=== PATIENT | female | born 2000 | race Caucasian/White ===

== ENCOUNTER 2022-12-27 11:16 | Emergency (ER) | payer OTHER, BC, SELFPAY ==
--- NOTE | ~2022-12-27 | US_ITS ---
EXAMINATION: US OB <=14 wk fetus w TV DATE: 12/27/2022 13:56 INDICATION: Low abdominal pain. TECHNIQUE: Real-time transabdominal and transvaginal pelvic ultrasound was performed. COMPARISON: None. FINDINGS: TRANSABDOMINAL ULTRASOUND: The uterus measures 6.8 x 6.0 x 5.3 cm. TRANSVAGINAL ULTRASOUND: There is an intrauterine gestational sac. A yolk sac is identified. The fet al crown rump length measures 0.7 cm, which correlates with an estimated gestational age of 6 weeks a nd 4 day(s) (+/-) 4 day(s). heart motion is identified measuring 163 beats per minute (bpm) by M-mode Doppler. The right ovary measures 6.9 x 7.5 x 6.9 cm. The left ovary measures 2.6 x 3.5 x 2.7 cm. There is a 6.9 cm homogeneous hypoechoic mass in right ovary without internal vascular flow. Ther e is vascular flow in the ovaries. There is no free fluid in the pelvis. IMPRESSION: 1. 6.9 cm mass in right ovary, most likely an endometrioma. Pelvis ultrasound is recommended in 6-12 weeks. 2. Single living intrauterine gestation with estimated date of delivery of 08/18/2023. Reviewed, dictated and finalized at location A. IMPRESSION: 1. 6.9 cm mass in right ovary, most likely an endometrioma. Pelvis ultrasound is recommended in 6-12 weeks. 2. Single living intrauterine gestation with estimated date of delivery of 08/01.
[2022-12-27 11:20] VITALS: BP 147/101; PULSE 75; RESP 16; TEMP 36.9; O2SAT 100
--- NOTE | 2022-12-27 12:03 | ECG_ITS ---
Measurements Intervals [place] Rate: 74 P: 60 RI: 134 QRS: 64 QRSD: 78 T: 24 QT: 360 QTc: 400 Interpretive Statements SINUS RHYTHM MINIMAL Q WAVES- ANTEROLAT/INF LEADS NONSPECIFIC T-WAVE ABNORMALITY- ANTERIOR LEADS BASELINE ARTIFACT- I, II, AVR, AVL BORDERLINE ECG NO PREVIOUS ECG AVAILABLE FOR COMPARISON Electronically Signed On 12-27-2022 12:31:51 CDT by Alvino Puente D.O.
[2022-12-27 12:29] LABS: Basophils Percent Auto 0.3 % (0.2-1.2); Eosinophils Percent Auto 0.1 % (0-4.4); Hemoglobin 14.5 g/dL (12.0-15.0); Immature Granulocyte Absolute 0.06 K/mm3 (0.00-0.031); Immature Granulocyte Percent A 0.5 % (0-0.5); Lymphocytes Absolute Auto 0.89 K/mm3 (0.9-3.2); Lymphocytes Percent Auto 7.3 % (18.3-44.2); Mean Corpuscular HGB Conc 35.4 g/dl (32-36); Mean Corpuscular Hemoglobin 31.2 pg (26-34); Mean Corpuscular Volume 88.2 fl (80-100); Mean Platelet Volume 9.6 fl (7.4-10.4); Monocytes Absolute Auto 0.5 K/mm3 (0.1-0.6); Monocytes Percent Auto 4.4 % (2.6-8.5); Neutrophils Absolute Auto 10.7 K/mm3 (1.3-6.7); Neutrophils Percent Auto 87.4 % (45.5-73.1); Platelet Count Result 232 k/mm3 (150-375); Red Blood Count 4.65 M/mm3 (4.2-5.4); Red Cell Distribution Width 11.9 % (11.5-14.5); White Blood Count 12.2 K/mm3 (4.5-10.0)
[2022-12-27 12:33] LABS: Appearance Urine Cloudy (Clear); Bacteria Urine 1+ /hpf; Bilirubin Urine Negative (Negative); Blood Urine Negative (Negative); Color Urine Yellow (Yellow); Glucose Urine UA Negative (Negative); Ketones Urine 4+ mg/dL (Negative); Leukocyte Esterase Ur 1+ LEU/UL (Negative); Nitrate Urine Negative (Negative); Non Pathogenic Casts 0-2; Protein Urine Trace mg/dL (Negative); Specific Grav Ur 1.024 (1.001-1.035); Squamous Epithelial Cell Urine Moderate /hpf (Few); Urobilinogen Urine 0.2 mg/dL (<2.0)
[2022-12-27 12:37] LABS: Alanine Aminotransferase 68 U/L (6-35); Albumin Level 4.8 g/dL (3.5-5.1); Alkaline Phosphatase 84 U/L (38-126); Anion Gap 9 mmol/L (8-16); Aspartate Amino Transferase 61 U/L (14-36); Bilirubin,Total 0.7 mg/dL (0.2-1.3); Blood Urea Nitrogen 7 mg/dL (7-17); Carbon Dioxide 23 mmol/L (22-30); Chloride 103 mmol/L (98-107); Estimated CRCL calculation 127 ml/min; Estimated Glomerular Filt Rate > 60; Glucose 88 mg/dL (65-110); Potassium 3.7 mmol/L (3.4-5.0); Sodium 135 mmol/L (137-145)
[2022-12-27 12:58] LABS: Add Urine Microscopic? YES
--- NOTE | 2022-12-27 13:11 | ED.GENADULT ---
HPI - General Adult General Chief complaint: Abdominal Pain Stated complaint: early preg/abd pain Time Seen by Provider: 12/27/22 12:12 History of Present Illness HPI narrative: 22-year-old female that is G1, P0 presented to the emergency department for evaluation of epigastric and lower abdominal pain. Patient reports the symptoms started today while she was at rest. Patient states she was also having some associated chest pain as well. Patient is currently being treated with antibiotics for bacterial vaginosis and today is last day of antibiotics. Patient denies any pain with urination denies any vaginal bleeding. Patient has not yet had an ultrasound with this . Patient is scheduled to follow-up with OB next week. Related Data Allergies Allergy/AdvReac Type Severity Reaction Status Date / Time No Known Allergies Allergy Unverified 09/26/18 19:47 Review of Systems Review of Systems: All systems reviewed & are unremarkable except as noted in HPI and below Exam Narrative: APPEARANCE: Well appearing, no pain, no distress, well-nourished. HEAD: normocephalic, atraumatic. EYES: PERRLA/EOMI, conjunctivae clear. NECK: Supple. No adenopathy, no masses. RESPIRATORY: Airway patent, respirations nonlabored. Clear to auscultation bilaterally, no rales, rhonchi, wheezing. CARDIOVASCULAR: Regular rate and rhythm without murmurs rubs or gallops. ABDOMINAL: Soft, lower abdominal tenderness, nondistended, normal bowel sounds. MUSCULOSKELETAL: Moves all extremities. Strength/ROM intact, No edema, No calf tenderness. NEURO: Alert. Cranial nerves II through XII intact. Grossly intact SKIN: Warm, dry. Normal Color Course Course Emergency Course: 22-year-old female that is G1, P0 presenting for evaluation of lower abdominal pain. Differential diagnosis does include ovarian torsion, ectopic , urinary tract infection. Patient denied having any chest pain in the emergency department. Ultrasound was ordered to evaluate for ectopic and torsion. Patient was provided IV fluids and IV Tylenol for pain control. 3:37 PM. Patient was afebrile with a leukocytosis of 12.2. Patient's CMP is similar to her baseline. UA was concerning for urinary tract infection and urine culture is pending. Patient is currently on antibiotics for BV. This may be a contaminated urine sample. Patient is being started on Macrobid. Patient was updated on the results of her ultrasound showing a single live intrauterine but also a right ovarian mass concerning for an endometrioma. Patient was encouraged to have close follow-up with OB. Patient was comfortable with this plan for discharge and close follow-up. All questions concerns were addressed. Patient's partner was present during the discharge instructions. Vital Signs Vital signs: Vital Signs Temperature 98.4 F 12/27/22 11:20 Pulse Rate 75 12/27/22 11:20 Respiratory Rate 16 12/27/22 11:20 Blood Pressure 147/101 H 12/27/22 11:20 Pulse Oximetry 100 12/27/22 11:20 Oxygen Delivery Room Air 12/27/22 11:20 Temperature 98.4 F 12/27/22 11:20 Pulse Rate 89 12/27/22 15:56 Respiratory Rate 18 12/27/22 15:56 Blood Pressure 137/91 H 12/27/22 15:56 Pulse Oximetry 100 12/27/22 15:56 Oxygen Delivery Room Air 12/27/22 11:20 Medical Decision Making Vital Signs Vital Signs: Vital Signs Temperature 98.4 F 12/27/22 11:20 Pulse Rate 75 12/27/22 11:20 Respiratory Rate 16 12/27/22 11:20 Blood Pressure 147/101 H 12/27/22 11:20 Pulse Oximetry 100 12/27/22 11:20 Oxygen Delivery Room Air 12/27/22 11:20 Temperature 98.4 F 12/27/22 11:20 Pulse Rate 89 12/27/22 15:56 Respiratory Rate 18 12/27/22 15:56 Blood Pressure 137/91 H 12/27/22 15:56 Pulse Oximetry 100 12/27/22 15:56 Oxygen Delivery Room Air 12/27/22 11:20 Lab Data Lab results reviewed: Yes I reviewed the patient's lab results. 12/27/22 12:22
[2022-12-27] MEDS: SODIUM CHLORIDE 0.9% IV 1,000 ML 999 ML IV CONT (14:05)
[2022-12-27] MEDS: NITROFURANTOIN MONOHYD MACROCR 100 MG CAP PO (15:53)
[2022-12-27 15:56] VITALS: BP 137/91; PULSE 89; RESP 18; O2SAT 100
== END 2022-12-27 15:57 | disposition home or self-care (01) ==
PROVIDERS: Emergency Medicine; Emergency Provider Emergency Medicine; PCP Physician Assistant
DX: N39.0 Urinary tract infection, site not specified (principal); N80.121 Deep endometriosis of right ovary; Z3A.00 Weeks of gestation of pregnancy not specified
CPT/HCPCS: 36415; 76801; 76817; 80053; 81001; 81025; 84702; 85025; 87086; 93005; 96361; 96365; 99284; A9270; J0131; J7030

== ENCOUNTER 2022-12-29 04:06 | Emergency (ER) | payer OTHER, BC, SELFPAY ==
[2022-12-29] VITALS (13 sets, daily range): BP systolic 130–146; BP diastolic 71–85; PULSE 96–106; RESP 18; TEMP 37; O2SAT 97–100
--- NOTE | ~2022-12-29 | US_ITS ---
Pelvic ultrasound. Clinical History: First trimester , pelvic pain Technique: Realtime transabdominal and transvaginal scanning of the pelvis was performed. Color flow Doppler and Doppler spectral analysis were performed. Findings: The uterus is anteverted, and contains an intrauterine gestation. Sexton-rump length of 9 mm corresponds to an estimated gestational age of 6 weeks 6 days. heart rate is 142 bpm. The right ovary measures 6.8 x 4.4 x 5.3 cm. Simple right ovarian cyst measures 6.5 x 4.0 cm in size. The left ovary measures 4.0 x 3.8 x 2.7 cm. No significant left ovarian or adnexal mass is seen. Vascular flow present in both ovaries on Doppler spectral analysis. There is no evidence of free fluid in the cul de sac. Impression: No evidence of torsion. 6.5 cm simple right ovarian cyst. Live intrauterine gestation with estimated gestational age of 6 weeks 6 days. heart rate is 142 bpm. Reviewed, dictated and finalized at location . Impression: No evidence of torsion. 6.5 cm simple right ovarian cyst. Live intrauterine gestation with estimated gestational age of 6 weeks 6 days. F etal heart rate is 142 bpm.
--- NOTE | 2022-12-29 04:14 | ED.ABDPAIN ---
HPI - Abdominal Pain General Chief Complaint: Abdominal Pain Stated Complaint: abd pain Time Seen by Provider: 12/29/22 04:09 History of Present Illness HPI narrative: 22-year-old female that is approximately 6 weeks presenting to the emergency department for evaluation of persistent abdominal pain. Patient was evaluated in the emergency department 3 days ago and diagnosed with an endometrioma and a live intrauterine of 6 weeks. Patient states that she has been taking Tylenol for pain control but still having persistent pain. Patient attempted to have follow-up with the [facility] in [place] but was unable to get an appointment earlier than January 04. Related Data Allergies Allergy/AdvReac Type Severity Reaction Status Date / Time No Known Allergies Allergy Verified 12/29/22 04:07 Review of Systems Review of Systems: CONSTITUTIONAL: Denies fever, chills, or sweats. EYES: Denies visual changes, redness, or discharge. ENT: Denies rhinorrhea, congestion, sore throat, or otalgia. CARDIOVASCULAR: Denies chest pain, palpitations, or edema. RESPIRATORY: Denies cough or dyspnea. GASTROINTESTINAL: Denies abdominal pain, nausea, vomiting, or diarrhea. GENITOURINARY: Denies dysuria or hematuria. SKIN: Denies rash or itching. MUSCULOSKELETAL: Denies back pain, joint pain, or myalgia. NEUROLOGIC: Denies headache, numbness, or weakness. PSYCHIATRIC: Denies anxiety or depression. Exam Narrative: APPEARANCE: Well appearing HEAD: normocephalic, atraumatic. EYES: PERRLA/EOMI, conjunctivae clear. NOSE: Normal no drainage NECK: Supple. No adenopathy, no masses. RESPIRATORY: Airway patent, respirations nonlabored. Clear to auscultation bilaterally, no rales, rhonchi, wheezing. CARDIOVASCULAR: Regular rate and rhythm without murmurs rubs or gallops. ABDOMINAL: Soft, nontender, nondistended, normal bowel sounds MUSCULOSKELETAL: Moves all extremities. Strength/ROM intact, No edema, No calf tenderness. NEURO: Alert. Cranial nerves II through XII intact. SKIN: Warm, dry. Normal Color Course Course Emergency Course: 22-year-old female that is 6 weeks presenting with lower abdominal pain. Patient had a recent ultrasound showing a single live intrauterine and a 6.9 mass in the right ovary likely an endometrioma. Repeat ultrasound was ordered to rule out for ovarian torsion due to the size of the right ovarian mass. Repeat ultrasound confirms the normal intrauterine of 6 weeks and 6 days. Ultrasound also showed the 6.5 cm right ovarian cyst with no evidence of acute torsion. On repeat exam patient states she does feel improved and is resting comfortably. Case was discussed with Dr. Leach who was on-call for OB and she was comfortable with the patient having close follow-up with her [employer]. Patient was encouraged to call her [employer] to inform them that she was once again seen in the emergency department. All questions concerns were addressed and patient was comfortable with the plan for discharge and close follow-up. Vital Signs Vital signs: Vital Signs Temperature 98.6 F 12/29/22 04:10 Pulse Rate 106 H 12/29/22 04:10 Respiratory Rate 18 12/29/22 04:10 Blood Pressure 146/85 H 12/29/22 04:10 Pulse Oximetry 99 12/29/22 04:10 Temperature 98.6 F 12/29/22 04:10 Pulse Rate 96 12/29/22 06:35 Respiratory Rate 18 12/29/22 06:35 Blood Pressure 130/71 12/29/22 06:35 Pulse Oximetry 100 12/29/22 06:35 MDM - Abdominal Pain Lab Data Attestation: I reviewed the patient's lab results. 12/29/22 04:15 12/29/22 04:15 Labs: Lab Results 12/29/22 12/29/22 12/29/22 Range/Units 04:15 04:15 04:24 WBC 8.1 (4.5-10.0) K/mm3 RBC 4.34 (4.2-5.4) M/mm3 Hgb 13.4 (12.0-15.0) g/dL Hct 38.3 (37.0-47.0) % MCV 88.2 (80-100) fl MCH 30.9 (26-34) pg MCHC 35.0 (32-36) g/dl RDW 11.8 (11.5-14.5) % Plt Count 220
[2022-12-29] MEDS: fentaNYL CITRATE INJ (*CRX) 100 MCG/2 ML VIAL 50 MCG IV PUSH (04:18)
[2022-12-29] MEDS: SODIUM CHLORIDE 0.9% IV 1,000 ML 999 ML IV CONT (04:18)
[2022-12-29 04:34] LABS: Basophils Percent Auto 0.4 % (0.2-1.2); Eosinophils Absolute Auto 0.1 K/mm3 (0-0.3); Eosinophils Percent Auto 0.9 % (0-4.4); Hematocrit 38.3 % (37.0-47.0); Hemoglobin 13.4 g/dL (12.0-15.0); Immature Granulocyte Absolute 0.04 K/mm3 (0.00-0.031); Immature Granulocyte Percent A 0.5 % (0-0.5); Lymphocytes Absolute Auto 1.24 K/mm3 (0.9-3.2); Lymphocytes Percent Auto 15.2 % (18.3-44.2); Mean Corpuscular Hemoglobin 30.9 pg (26-34); Mean Corpuscular Volume 88.2 fl (80-100); Mean Platelet Volume 9.5 fl (7.4-10.4); Monocytes Absolute Auto 0.6 K/mm3 (0.1-0.6); Monocytes Percent Auto 7.2 % (2.6-8.5); Neutrophils Absolute Auto 6.2 K/mm3 (1.3-6.7); Neutrophils Percent Auto 75.8 % (45.5-73.1); Platelet Count Result 220 k/mm3 (150-375); Red Blood Count 4.34 M/mm3 (4.2-5.4); Red Cell Distribution Width 11.8 % (11.5-14.5); White Blood Count 8.1 K/mm3 (4.5-10.0)
[2022-12-29 04:40] LABS: Appearance Urine Cloudy (Clear); Bacteria Urine Rare /hpf; Bilirubin Urine Negative (Negative); Blood Urine Negative (Negative); Color Urine Yellow (Yellow); Glucose Urine UA Negative (Negative); Ketones Urine 3+ mg/dL (Negative); Leukocyte Esterase Ur Negative LEU/UL (Negative); Nitrate Urine Negative (Negative); Non Pathogenic Casts 0-2; Protein Urine Trace mg/dL (Negative); RBC Urine 0-2 /hpf (0-2); Specific Grav Ur 1.025 (1.001-1.035); Squamous Epithelial Cell Urine Moderate /hpf (Few); WBC Urine 0-5 /hpf
[2022-12-29] MEDS: ONDANSETRON INJ 4 MG/2 ML VIAL IV PUSH (04:44)
[2022-12-29 04:46] LABS: Alanine Aminotransferase 45 U/L (6-35); Albumin Level 4.2 g/dL (3.5-5.1); Alkaline Phosphatase 73 U/L (38-126); Anion Gap 9 mmol/L (8-16); Aspartate Amino Transferase 28 U/L (14-36); Bilirubin,Total 0.7 mg/dL (0.2-1.3); Blood Urea Nitrogen 6 mg/dL (7-17); Calcium 8.6 mg/dL (8.4-10.2); Carbon Dioxide 22 mmol/L (22-30); Chloride 104 mmol/L (98-107); Estimated CRCL calculation 127 ml/min; Estimated Glomerular Filt Rate > 60; Glucose 99 mg/dL (65-110); Potassium 3.5 mmol/L (3.4-5.0); Sodium 135 mmol/L (137-145)
[2022-12-29 04:53] LABS: Add Urine Microscopic? YES
== END 2022-12-29 06:32 | disposition home or self-care (01) ==
PROVIDERS: Emergency Provider Emergency Medicine; PCP Physician Assistant
DX: O99.891 Other specified diseases and conditions complicating pregnancy (principal); N83.201 Unspecified ovarian cyst, right side; R10.9 Unspecified abdominal pain; Z3A.01 Less than 8 weeks gestation of pregnancy
CPT/HCPCS: 36415; 76801; 76817; 80053; 81001; 84702; 85025; 96361; 96374; 96375; 99284; J2405; J3010; J7030

== ENCOUNTER 2023-07-17 10:21 | Outpatient (CLI) | payer OTHER, BC, SELFPAY ==
[2023-07-17] VITALS (9 sets, daily range): BP systolic 120–137; BP diastolic 79–93; PULSE 90–103
[2023-07-17 10:53] LABS: Basophils Absolute Auto 0.1 K/mm3 (0.0-0.1); Eosinophils Absolute Auto 0.1 K/mm3 (0-0.3); Eosinophils Percent Auto 1.3 % (0-4.4); Hematocrit 32.9 % (37.0-47.0); Hemoglobin 11.2 g/dL (12.0-15.0); Lymphocytes Absolute Auto 1.61 K/mm3 (0.9-3.2); Mean Corpuscular Hemoglobin 31.1 pg (26-34); Mean Corpuscular Volume 91.4 fl (80-100); Mean Platelet Volume 10.2 fl (7.4-10.4); Monocytes Absolute Auto 0.9 K/mm3 (0.1-0.6); Monocytes Percent Auto 8.7 % (2.6-8.5); Neutrophils Absolute Auto 6.9 K/mm3 (1.3-6.7); Platelet Count Result 184 k/mm3 (150-375); Red Cell Distribution Width 12.1 % (11.5-14.5); White Blood Count 10.1 K/mm3 (4.5-10.0)
[2023-07-17 11:01] LABS: Creatinine Urine 68.9 mg/dL; Total Protein Urine Random 18 mg/dL; Ur Ttl Prot Creatinine Ratio 0.26 mg/mg (0-0.20)
[2023-07-17 11:06] LABS: Alanine Aminotransferase 17 U/L (6-35); Albumin Level 3.7 g/dL (3.5-5.1); Alkaline Phosphatase 148 U/L (38-126); Anion Gap 7 mmol/L (8-16); Aspartate Amino Transferase 23 U/L (14-36); Bilirubin,Total 0.4 mg/dL (0.2-1.3); Blood Urea Nitrogen 7 mg/dL (7-17); Calcium 9.1 mg/dL (8.4-10.2); Carbon Dioxide 21 mmol/L (22-30); Chloride 108 mmol/L (98-107); Estimated Glomerular Filt Rate > 60; Glucose 70 mg/dL (65-110); Potassium 3.7 mmol/L (3.4-5.0); Sodium 136 mmol/L (137-145); Uric Acid 4.3 mg/dL (2.5-7.5)
[2023-07-17 12:19] LABS: Appearance Urine Cloudy (Clear); Bilirubin Urine Negative (Negative); Blood Urine Negative (Negative); Color Urine Yellow (Yellow); Glucose Urine UA Negative (Negative); Ketones Urine Negative (Negative); Leukocyte Esterase Ur Trace LEU/UL (NEGATIVE); Nitrate Urine Negative (Negative); Protein Urine Negative (Negative); Specific Grav Ur 1.011 (1.001-1.035); Urobilinogen Urine 0.2 mg/dL (<2.0); pH Urine 7.5 (5.0-9.0)
[2023-07-17 12:36] LABS: Add Urine Microscopic? YES; RBC Urine 0-2 /hpf (0-2)
--- NOTE | 2023-07-17 12:44 | PC.NURSE ---
Dr. Villareal notified of NST, lab results, and vital signs. Okay to discharge, patient has appointment on Sunday. Verbal instructions given on when to return to labor and delivery. Patient in agreement with plan of care.
== END 2023-07-17 12:46 | disposition home or self-care (01) ==
LOC: ANHOBOP 10:28 → ANHOBPP 10:28
PROVIDERS: PCP Physician Assistant; Visit Provider Obstetrics & Gynecology
DX: O13.9 Gestational [pregnancy-induced] hypertension without significant proteinuria, unspecified trimester (principal); Z3A.00 Weeks of gestation of pregnancy not specified
CPT/HCPCS: 36415; 59025; 80053; 81001; 82570; 84156; 84550; 85025; 87086; 99199

== ENCOUNTER 2023-07-24 10:18 | Outpatient (CLI) | payer OTHER, BC, SELFPAY ==
[2023-07-24 10:43] VITALS: BMI 34.5
--- NOTE | 2023-07-24 10:43 | OBADM ---
This patient, Olivia Blackburn, admitted to the OB room OB Post 113 for observation. Patient/family oriented to hospital policies and general routines including ID bracelet, bed and alarms, visiting hours, pain management, procedures, bathroom and other care routines, personal items, smoking policy, room service/diet, and visiting hours. Patient/Family are encouraged to report perceived risks to care and to ask questions if they do not understand what they are told or what they should do.
[2023-07-24 10:45] VITALS: BP 141/87; PULSE 101
[2023-07-24 10:47] LABS: Basophils Absolute Auto 0.1 K/mm3 (0.0-0.1); Basophils Percent Auto 0.6 % (0.2-1.2); Eosinophils Absolute Auto 0.1 K/mm3 (0-0.3); Hematocrit 31.5 % (37.0-47.0); Hemoglobin 10.7 g/dL (12.0-15.0); Immature Granulocyte Absolute 0.36 K/mm3 (0.00-0.031); Immature Granulocyte Percent A 4.2 % (0-0.5); Lymphocytes Absolute Auto 1.27 K/mm3 (0.9-3.2); Lymphocytes Percent Auto 14.7 % (18.3-44.2); Mean Corpuscular Hemoglobin 30.7 pg (26-34); Mean Corpuscular Volume 90.5 fl (80-100); Mean Platelet Volume 10.2 fl (7.4-10.4); Monocytes Absolute Auto 0.7 K/mm3 (0.1-0.6); Monocytes Percent Auto 7.9 % (2.6-8.5); Neutrophils Absolute Auto 6.2 K/mm3 (1.3-6.7); Neutrophils Percent Auto 71.6 % (45.5-73.1); Platelet Count Result 193 k/mm3 (150-375); Red Blood Count 3.48 M/mm3 (4.2-5.4); Red Cell Distribution Width 12.6 % (11.5-14.5); White Blood Count 8.6 K/mm3 (4.5-10.0)
[2023-07-24 10:52] LABS: Appearance Urine Cloudy (Clear); Bacteria Urine None Seen /hpf; Bilirubin Urine Negative (Negative); Blood Urine Negative (Negative); Color Urine Yellow (Yellow); Glucose Urine UA Trace mg/dL (Negative); Ketones Urine Negative (Negative); Leukocyte Esterase Ur Negative LEU/UL (NEGATIVE); Nitrate Urine Negative (Negative); Non Pathogenic Casts 0-2; Protein Urine Negative (Negative); RBC Urine 0-2 /hpf (0-2); Specific Grav Ur 1.012 (1.001-1.035); Squamous Epithelial Cell Urine Few /hpf (Few); Urobilinogen Urine 0.2 mg/dL (<2.0); WBC Urine 0-5 /hpf (0-3); pH Urine 7.5 (5.0-9.0)
[2023-07-24 11:00] VITALS: BP 144/89; PULSE 92
[2023-07-24 11:01] LABS: Alanine Aminotransferase 17 U/L (6-35); Albumin Level 3.5 g/dL (3.5-5.1); Alkaline Phosphatase 148 U/L (38-126); Anion Gap 9 mmol/L (8-16); Aspartate Amino Transferase 20 U/L (14-36); Bilirubin,Total 0.3 mg/dL (0.2-1.3); Blood Urea Nitrogen 7 mg/dL (7-17); Calcium 9.3 mg/dL (8.4-10.2); Carbon Dioxide 19 mmol/L (22-30); Chloride 108 mmol/L (98-107); Estimated CRCL calculation 143 ml/min; Estimated Glomerular Filt Rate > 60; Glucose 57 mg/dL (65-110); Potassium 3.9 mmol/L (3.4-5.0); Sodium 136 mmol/L (137-145); Uric Acid 3.7 mg/dL (2.5-7.5)
[2023-07-24 11:09] LABS: Add Urine Microscopic? YES
[2023-07-24 11:15] VITALS: BP 138/90; PULSE 95
[2023-07-24 11:28] LABS: Creatinine Urine 55.5 mg/dL; Total Protein Urine Random 17 mg/dL; Ur Ttl Prot Creatinine Ratio 0.31 mg/mg (0-0.20)
[2023-07-24 11:30] VITALS: BP 133/91; PULSE 97
--- NOTE | 2023-07-24 11:39 | PC.NURSE ---
Dr. Villareal notified of NST, lab results, VS, and patient status. Okay to discharge. Strict precautions on when to return to hospital. Patient in agreement with plan of care.
== END 2023-07-24 11:39 | disposition home or self-care (01) ==
LOC: ANHOBOP 10:21 → ANHOBPP 10:24
PROVIDERS: PCP Physician Assistant; Visit Provider Obstetrics & Gynecology
DX: O13.9 Gestational [pregnancy-induced] hypertension without significant proteinuria, unspecified trimester (principal); Z3A.00 Weeks of gestation of pregnancy not specified
CPT/HCPCS: 36415; 80053; 81001; 82570; 84156; 84550; 85025; 87086; 99199

== ENCOUNTER 2023-07-26 05:59 | Inpatient (IN) | payer OTHER, BC, SELFPAY ==
[2023-07-26] VITALS (29 sets, daily range): BP systolic 119–151; BP diastolic 64–112; PULSE 86–112; RESP 16; TEMP 36.1–36.7; BMI 34.5
--- NOTE | 2023-07-26 06:31 | P.PNAN_ITS ---
Anes - Eval Pre Procedure Procedure: labor epidural Date/Time: 07/26/23 06:31 Surgeon: filipe Preop Diagnosis: pain during labor Pre Op Diagnosis: IOL Patient Data Age: 22 Gender: F Height: Weight: Allergies Allergy/AdvReac Type Severity Reaction Status Date / Time No Known Allergies Allergy Verified 12/29/22 04:07 Home Medications Medication Instructions Recorded Confirmed Type ferrous sulfate 325 mg (65 mg 325 mg PO DAILY 07/13/23 07/13/23 History iron) tablet,delayed release prenat.vits,nima,lgc-mogt-uhove tablet 07/13/23 History Patient hx anesthesia problems: none Family hx anesthesia problems: none Results Review: All pre-operative results and documents have been reviewed as part of the pre- operative evaluation. [facility] Past Medical History Medical History (Updated 07/26/23 @ 06:31 by Nadege Lay CRNA) IUP (intrauterine ), incidental Family History Family History (Updated 07/13/23 @ 13:27 by Josey Ramachandran RN) Father Retinitis pigmentosa Social History Social History Substance use: never Other substance usage details: quit first trimester Spiritual care concerns: No Exam Day of Procedure 07/26/23 06:31
[2023-07-26 06:50] LABS: Basophils Absolute Auto 0.1 K/mm3 (0.0-0.1); Basophils Percent Auto 0.8 % (0.2-1.2); Eosinophils Absolute Auto 0.1 K/mm3 (0-0.3); Eosinophils Percent Auto 1.2 % (0-4.4); Hematocrit 31.8 % (37.0-47.0); Hemoglobin 10.6 g/dL (12.0-15.0); Immature Granulocyte Absolute 0.35 K/mm3 (0.00-0.031); Immature Granulocyte Percent A 4.1 % (0-0.5); Lymphocytes Absolute Auto 1.34 K/mm3 (0.9-3.2); Lymphocytes Percent Auto 15.8 % (18.3-44.2); Mean Corpuscular HGB Conc 33.3 g/dl (32-36); Mean Corpuscular Hemoglobin 29.7 pg (26-34); Mean Corpuscular Volume 89.1 fl (80-100); Mean Platelet Volume 9.7 fl (7.4-10.4); Monocytes Absolute Auto 0.5 K/mm3 (0.1-0.6); Monocytes Percent Auto 5.9 % (2.6-8.5); Neutrophils Absolute Auto 6.1 K/mm3 (1.3-6.7); Neutrophils Percent Auto 72.2 % (45.5-73.1); Platelet Count Result 191 k/mm3 (150-375); Red Blood Count 3.57 M/mm3 (4.2-5.4); Red Cell Distribution Width 12.5 % (11.5-14.5); White Blood Count 8.5 K/mm3 (4.5-10.0)
--- NOTE | 2023-07-26 06:53 | ADMGEN ---
This patient, Olivia Blackburn, was admitted to Labor/Delivery/Recovery 104-00. Patient/family oriented to hospital policies and general routines including ID bracelet, bed and alarms, visiting hours, pain management, procedures, bathroom and other care routines, personal items, smoking policy, room service/diet, and visiting hours. Information on how to activate the Rapid Response Team has been discussed. Patient/Family are encouraged to report perceived risks to care and to ask questions if they do not understand what they are told or what they should do.
[2023-07-26 06:59] LABS: Uric Acid 4.1 mg/dL (2.5-7.5)
[2023-07-26 07:01] LABS: Alanine Aminotransferase 18 U/L (6-35); Albumin Level 3.4 g/dL (3.5-5.1); Alkaline Phosphatase 143 U/L (38-126); Anion Gap 8 mmol/L (8-16); Aspartate Amino Transferase 19 U/L (14-36); Bilirubin,Total 0.4 mg/dL (0.2-1.3); Blood Urea Nitrogen 9 mg/dL (7-17); Calcium 8.9 mg/dL (8.4-10.2); Carbon Dioxide 18 mmol/L (22-30); Chloride 106 mmol/L (98-107); Estimated Glomerular Filt Rate > 60; Glucose 112 mg/dL (65-110); Potassium 3.1 mmol/L (3.4-5.0); Sodium 132 mmol/L (137-145)
[2023-07-26] MEDS: LACTATED RINGERS 1,000 ML 125 ML IV CONT ×2 (07:01→21:45)
[2023-07-26] MEDS: AMPICILLIN 2 GM/NS 100 ML 2 GM/100 ML BAG IVPB (07:02)
--- NOTE | 2023-07-26 07:59 | WPDHPUPDATE1 ---
History and Physical Update Update Date/Time: 07/26/23 07:59 22-year-old 1 at 37 weeks presents for induction of labor for gestational hypertension. Two place Cervidil for 12 hours and then start Pitocin. Reassuring status. History and Physical has been reviewed, including an updated exam of the patient. There are NO changes in the patient's condition. Risks, benefits, and alternatives have been discussed and questions answered. Patient agrees to proceed with procedure.
[2023-07-26] MEDS: DINOPROSTONE 10 MG VAG INSERT VAGINAL (08:54)
[2023-07-26] MEDS: AMPICILLIN 1 GM/NS 50 ML 1 GM/50 ML BAG IVPB ×3 (11:38→21:54)
[2023-07-26 13:35] LABS: Rapid Plasma Reagin Non-Reactive (NonReactive)
[2023-07-26] MEDS: OXYTOCIN 30 UNITS/NS 500 ML 30 UNITS/500 ML BAG IV CONT (21:45)
[2023-07-27] VITALS (121 sets, daily range): BP systolic 87–168; BP diastolic 63–128; PULSE 78–121; RESP 16; TEMP 36.2–36.8; O2SAT 90–100
[2023-07-27] MEDS: AMPICILLIN 1 GM/NS 50 ML 1 GM/50 ML BAG IVPB ×5 (01:56→22:47)
[2023-07-27] MEDS: LACTATED RINGERS 1,000 ML 125 ML IV CONT (07:08)
--- NOTE | 2023-07-27 08:16 | PM.GYNPNOP ---
FLOORING SALES MANAGER - A/P Assessment and plan (1) Gestational hypertension: Code(s): O13.9 - Gestational [-induced] hypertension without significant proteinuria, unspecified trimester Status: Acute (2) Term : Code(s): Z34.90 - Encounter for supervision of normal , unspecified, unspecified trimester Status: Acute Plan Reassuring status, no progress with respect to cervical dilation or station changes, low-dose Pitocin overnight, to start oral Cytotec, no contractions Time Spent With Patient Time: Total time spent is greater than 50% in coordination of care (as documented) at patient's floor/unit and/or counseling patient: Time with patient: 15 - 25 minutes FLOORING SALES MANAGER- PN:Subj Post-Op Subjective Date/time seen: 07/27/23 08:16 Interval history: Reassuring status, no progress with respect to cervical dilation or station changes, low-dose Pitocin overnight, to start oral Cytotec, no contractions FLOORING SALES MANAGER - PN: Obj Data Vital Signs Vital Signs: Vital Signs - 24 hr 07/26/23 08:31 07/26/23 09:01 07/26/23 09:31 Temperature Pulse Rate 92 92 103 H Respiratory Rate Blood Pressure 136/92 H 146/92 H 142/94 H 07/26/23 10:01 07/26/23 10:08 07/26/23 10:31 Temperature 97.7 F Pulse Rate 99 90 Respiratory Rate Blood Pressure 139/85 140/87 07/26/23 11:01 07/26/23 14:42 07/26/23 14:30 Temperature 98.1 F Pulse Rate 86 106 H Respiratory Rate Blood Pressure 148/95 H 135/86 07/26/23 17:49 07/26/23 17:55 07/26/23 18:01 Temperature 97.7 F Pulse Rate 92 95 Respiratory Rate Blood Pressure 150/93 H 149/84 H 07/26/23 18:16 07/26/23 18:31 07/26/23 18:46 Temperature Pulse Rate 96 100 98 Respiratory Rate Blood Pressure 147/71 H 140/83 136/78 07/26/23 18:54 07/26/23 21:47 07/26/23 22:01 Temperature 97.6 F Pulse Rate 101 H 96 Respiratory Rate 16 Blood Pressure 132/92 H 134/82 07/26/23 22:16 07/26/23 22:31 07/26/23 22:47 Temperature Pulse Rate 101 H 96 Respiratory Rate Blood Pressure 128/71 123/71 151/112 H 07/26/23 23:01 07/26/23 23:16 07/26/23 23:31 Temperature Pulse Rate 88 92 95 Respiratory Rate Blood Pressure 130/84 136/68 119/64 07/27/23 00:01 07/27/23 00:31 07/27/23 01:01 Temperature Pulse Rate 93 89 99 Respiratory Rate Blood Pressure 115/68 121/73 124/69 07/27/23 01:56 07/26/23 21:54 07/27/23 02:01 Temperature 97.1 F L 97 F L Pulse Rate 89 Respiratory Rate 16 16 Blood Pressure 110/66 07/27/23 02:31 07/27/23 03:01 07/27/23 03:31 Temperature Pulse Rate 98 96 85 Respiratory Rate Blood Pressure 127/68 132/76 127/73 07/27/23 04:01 07/27/23 04:31 07/27/23 05:01 Temperature Pulse Rate 95 95 87 Respiratory Rate Blood Pressure 131/84 124/81 131/81 07/27/23 05:31 07/27/23 05:58 07/27/23 06:01 Temperature 97.6 F Pulse Rate 88 90 Respiratory Rate 16 Blood Pressure 122/67 125/72 07/27/23 06:31 07/27/23 07:01 07/27/23 07:31 Temperature Pulse Rate 116 H 99 90 Respiratory Rate Blood Pressure 120/69 113/73 127/81 07/27/23 08:01 Temperature Pulse Rate 95 Respiratory Rate Blood Pressure 116/68 Intake/Output Intake/Output: Intake & Output 07/24/23 07/25/23 07/26/23 07/27/23 23:59 23:59 23:59 23:59 Intake Total 1150 1050 Balance 1150 1050 Meds/Results Medications: Active Medications Generic Name Dose Route Start Last Admin Trade Name Freq PRN Reason Stop Dose Admin Atropine Sulfate 0.4 mg 07/26/23 06:30 Atropine Sulfate 0.4 Mg/Ml Vial IV PUSH PRN PRN Bradycardia Ephedrine Sulfate 5 mg 07/26/23 06:30 Ephedrine Sulfate Inj 50 Mg/Ml Ampul IV PUSH Q5MIN PRN for hypotension (syst. < 100) Fentanyl Citrate 50 mcg 07/26/23 06:20 Fentanyl Citrate Inj (*Crx) 100 Mcg/2 Ml Vial IV PUSH Q1H PRN Pain Rated 5 or Less Fentanyl Citrate 100 mcg 07/26/23 06:20 Fentanyl C
[2023-07-27] MEDS: miSOPROStol 25 MCG TABLET PO (09:44)
[2023-07-27] MEDS: miSOPROStol 25 MCG TABLET 50 MCG PO (14:09)
--- NOTE | 2023-07-27 16:52 | PM.GYNPNOP ---
WOOD DIE MAKER - A/P Time Spent With Patient Time: Total time spent is greater than 50% in coordination of care (as documented) at patient's floor/unit and/or counseling patient: Time with patient: less than 15 minutes WOOD DIE MAKER- PN:Raffi Post-Op Subjective Date/time seen: 07/27/23 16:52 Artificial rupture of membranes-clear, 1.5 cm/ 50% / -3 - soft, IUPC placed without complications. She tolerated well. Reassuring status, to start Pitocin. Cytotec has been used over the last 10 hours. Interval history: Reassuring status, no progress with respect to cervical dilation or station changes, low-dose Pitocin overnight, to start oral Cytotec, no contractions WOOD DIE MAKER - PN: Obj Data Vital Signs Vital Signs: Vital Signs - 24 hr 07/26/23 17:49 07/26/23 17:55 07/26/23 18:01 Temperature 97.7 F Pulse Rate 92 95 Respiratory Rate Blood Pressure 150/93 H 149/84 H Pulse Oximetry 07/26/23 18:16 07/26/23 18:31 07/26/23 18:46 Temperature Pulse Rate 96 100 98 Respiratory Rate Blood Pressure 147/71 H 140/83 136/78 Pulse Oximetry 07/26/23 18:54 07/26/23 21:47 07/26/23 22:01 Temperature 97.6 F Pulse Rate 101 H 96 Respiratory Rate 16 Blood Pressure 132/92 H 134/82 Pulse Oximetry 07/26/23 22:16 07/26/23 22:31 07/26/23 22:47 Temperature Pulse Rate 101 H 96 Respiratory Rate Blood Pressure 128/71 123/71 151/112 H Pulse Oximetry 07/26/23 23:01 07/26/23 23:16 07/26/23 23:31 Temperature Pulse Rate 88 92 95 Respiratory Rate Blood Pressure 130/84 136/68 119/64 Pulse Oximetry 07/27/23 00:01 07/27/23 00:31 07/27/23 01:01 Temperature Pulse Rate 93 89 99 Respiratory Rate Blood Pressure 115/68 121/73 124/69 Pulse Oximetry 07/27/23 01:56 07/26/23 21:54 07/27/23 02:01 Temperature 97.1 F L 97 F L Pulse Rate 89 Respiratory Rate 16 16 Blood Pressure 110/66 Pulse Oximetry 07/27/23 02:31 07/27/23 03:01 07/27/23 03:31 Temperature Pulse Rate 98 96 85 Respiratory Rate Blood Pressure 127/68 132/76 127/73 Pulse Oximetry 07/27/23 04:01 07/27/23 04:31 07/27/23 05:01 Temperature Pulse Rate 95 95 87 Respiratory Rate Blood Pressure 131/84 124/81 131/81 Pulse Oximetry 07/27/23 05:31 07/27/23 05:58 07/27/23 06:01 Temperature 97.6 F Pulse Rate 88 90 Respiratory Rate 16 Blood Pressure 122/67 125/72 Pulse Oximetry 07/27/23 06:31 07/27/23 07:01 07/27/23 07:31 Temperature Pulse Rate 116 H 99 90 Respiratory Rate Blood Pressure 120/69 113/73 127/81 Pulse Oximetry 07/27/23 08:01 07/27/23 09:12 07/27/23 09:31 Temperature Pulse Rate 95 121 H 103 H Respiratory Rate Blood Pressure 116/68 131/82 134/84 Pulse Oximetry 98 07/27/23 10:01 07/27/23 10:07 07/27/23 10:16 Temperature 97.1 F L Pulse Rate 93 100 Respiratory Rate Blood Pressure 133/73 129/69 Pulse Oximetry 07/27/23 10:31 07/27/23 11:01 07/27/23 11:16 Temperature Pulse Rate 104 H 103 H 102 H Respiratory Rate Blood Pressure 133/86 144/87 H 152/93 H Pulse Oximetry 07/27/23 11:31 07/27/23 11:37 07/27/23 11:46 Temperature Pulse Rate 105 H 99 105 H Respiratory Rate Blood Pressure 168/128 H 147/93 H 142/87 H Pulse Oximetry 07/27/23 12:01 07/27/23 14:11 07/27/23 14:31 Temperature 97.6 F Pulse Rate 94 102 H Respiratory Rate Blood Pressure 128/76 148/81 H Pulse Oximetry 07/27/23 14:46 07/27/23 15:01 07/27/23 15:16 Temperature Pulse Rate 97 102 H 93 Respiratory Rate Blood Pressure 147/87 H 138/84 140/97 H Pulse Oximetry 07/27/23 15:31 07/27/23 15:46 07/27/23 16:01 Temperature Pulse Rate 97 95 94 Respiratory Rate Blood Pressure 146/97 H 144/94 H 142/91 H Pulse Oximetry 07/27/23 16:08 Temperature 97.7 F Pulse Rate Respiratory Rate Blood Pressure Pulse Oximetry Intake/Output Intake/Output: Intake & Output 07/24/23 07/25/23 07/26/23 1
[2023-07-27] MEDS: OXYTOCIN 30 UNITS/NS 500 ML 30 UNITS/500 ML BAG 6 UNITS IV CONT (18:44)
[2023-07-28] VITALS (114 sets, daily range): BP systolic 81–157; BP diastolic 58–136; PULSE 77–159; RESP 18; TEMP 36.2–37.2; O2SAT 93–100
--- NOTE | 2023-07-28 04:23 | P.PCNOB_ITS ---
OB - Delivery Note Procedure Procedure: Events: Gestational Hypertension Induction method: AROM, Per Misoprostol Protocol, Per Pitocin Protocol and Per Cervidil Protocol Delivery monitor: External FHT and Internal Uterine Route of delivery: Episiotomy description: None Laceration Description: Vaginal Delivery repair: vicryl Quantitative Blood Loss (ml): 100 Anesthesia type: Epidural Disposition: Floor [place] Baby Date of : 07/28/23 Time of : 04:04 Weeks of gestation at delivery: 37 Infant gender: Female Placenta delivery description: Spontaneous score one minute: 9 score five minutes: 9
[2023-07-28] MEDS: OXYTOCIN 30 UNITS/NS 500 ML 30 UNITS/500 ML BAG 125 UNITS IV CONT (04:35)
[2023-07-28] MEDS: ACETAMINOPHEN 325 MG TABLET 650 MG PO ×2 (06:37→17:06)
[2023-07-28] MEDS: WITCH HAZEL 40 PADS 1 PAD TOPICAL ×2 (06:39→10:35)
[2023-07-28] MEDS: BENZOCAINE 20% AER SPR (*SP) 56 GM CAN 1 SPRAY TOPICAL (06:40)
--- NOTE | 2023-07-28 07:03 | OBPPTRN ---
Patient transferred to post room # 282 via wheelchair. Support person present. Oriented to unit, room, information board, rooming in, admission packet and security measures. Patient verbalizes understanding.
[2023-07-28] MEDS: DOCUSATE SODIUM 100 MG CAPSULE PO (09:48)
[2023-07-28] MEDS: MULTIVIT/MIN/PREN/FOL AC/IRON TABLET 1 TAB PO (09:48)
[2023-07-28] MEDS: POLYSACCHARIDE IRON COMPLEX 150 MG CAPSULE PO (17:06)
[2023-07-28] MEDS: TETANUS,DIPHTHERIA,AC PERTUSSIS ADULT (0.5 ML) BOOSTRIX IM (17:07)
[2023-07-28] MEDS: IBUPROFEN 600 MG TABLET PO (23:57)
[2023-07-29] VITALS: BP 139/83; PULSE 86
[2023-07-29 04:30] VITALS: BP 138/89; PULSE 81; RESP 18; TEMP 36.6
[2023-07-29 04:40] LABS: Hematocrit 28.3 % (37.0-47.0); Hemoglobin 9.2 g/dL (12.0-15.0)
[2023-07-29 08:27] VITALS: BP 140/85; PULSE 80; RESP 16; TEMP 36.1; O2SAT 98
[2023-07-29] MEDS: POLYSACCHARIDE IRON COMPLEX 150 MG CAPSULE PO ×2 (08:27→15:55)
[2023-07-29] MEDS: ACETAMINOPHEN 325 MG TABLET 650 MG PO (08:27)
[2023-07-29] MEDS: MULTIVIT/MIN/PREN/FOL AC/IRON TABLET 1 TAB PO (08:27)
[2023-07-29] MEDS: DOCUSATE SODIUM 100 MG CAPSULE PO ×2 (08:27→15:55)
--- NOTE | 2023-07-29 11:51 | PM.OBPNVD ---
OB - PN: Subj Subjective Date/time seen: 07/29/23 11:51 Interval history: Reassuring status, no progress with respect to cervical dilation or station changes, low-dose Pitocin overnight, to start oral Cytotec, no contractions Patient comments: no complaints, pain well controlled, incisional pain, tolerating diet and flatus present OB - PN: Obj Data Labs 07/29/23 04:27 07/26/23 06:36 Labs: Laboratory Results - last 24 hr 07/29/23 04:27 Hgb 9.2 L Hct 28.3 L OB - PN A/P Plan day: 1 Plan: routine care Comments: No problems, routine care Time Spent With Patient Time: Total time spent is greater than 50% in coordination of care (as documented) at patient's floor/unit and/or counseling patient: Exam Const: General: comfortable, no acute distress and alert Resp: Effort & Inspection: normal respiratory effort Auscultation: no crackles, no rales and no rhonchi Cardio: Rate: regular rate Heart sounds: no click, no murmurs and no rubs GI: Inspection: non-distended GI Palp: No Tenderness to palpation present (GI) Auscultation: normal bowel sounds Other: Incision - CDI Extrem: General: normal to inspection, no pedal edema and no calf tenderness
[2023-07-29 15:50] VITALS: BP 153/98; PULSE 77; RESP 18; TEMP 36.3; O2SAT 99
[2023-07-29] MEDS: IBUPROFEN 600 MG TABLET PO ×2 (15:55→23:07)
[2023-07-29 19:55] VITALS: BP 150/103; PULSE 82; RESP 16; TEMP 36.9; O2SAT 99
[2023-07-29 23:00] VITALS: BP 145/92; PULSE 86; TEMP 36.8
--- NOTE | 2023-07-30 00:58 | PC.NURSE ---
Patient viewed the discharge video Mother & Baby Care, The First Two Weeks . Patient was given the opportunity and encouraged to ask questions. Patient verbalized understanding of information shared and has been given the mother/baby guide for home reference.
[2023-07-30 05:22] VITALS: BP 137/95
[2023-07-30 07:50] VITALS: BP 141/95; PULSE 86; RESP 16; TEMP 37.4; O2SAT 97
[2023-07-30 08:00] VITALS: PULSE 86; RESP 16; O2SAT 97
--- NOTE | 2023-07-30 08:35 | PM.OBPNVD ---
OB - PN: Subj Subjective Date/time seen: 07/30/23 08:35 Interval history: Reassuring status, no progress with respect to cervical dilation or station changes, low-dose Pitocin overnight, to start oral Cytotec, no contractions Patient comments: no complaints, pain well controlled and tolerating diet OB - PN: Obj Data Labs 07/29/23 04:27 07/26/23 06:36 OB - PN A/P Plan day: 2 Plan: routine care and discharge home Comments: elevated bp's noted , bp check tomorrow, to d/c, no bp meds required Time Spent With Patient Time: Total time spent is greater than 50% in coordination of care (as documented) at patient's floor/unit and/or counseling patient: Exam Const: General: comfortable and no acute distress Resp: Effort & Inspection: normal respiratory effort Auscultation: no rales, no rhonchi and no wheezes Cardio: Rate: regular rate Heart sounds: no click, no murmurs and no rubs GI: GI Palp: Yes Soft to palpation and No Tenderness to palpation present (GI) Auscultation: normal bowel sounds Extrem: General: normal to inspection, no pedal edema and no calf tenderness
--- NOTE | 2023-07-30 08:37 | PM.OBDSVD ---
DS: Admitting Diagnosis Discharge Date 07/30/23 Admitting Diagnosis term DS: Discharge Diagnosis Discharge Diagnosis (1) Term delivered: Code(s): O80 - Encounter for full-term uncomplicated delivery Status: Acute OB - DS: Summary OB Procedures : None OB Procedures Intrapartum: Spontaneous Vag Delivery OB Procedures: : None Time Spent with Patient Time attestation: Total time spent providing and/or coordinating discharge services: Discharge Plan Discharge Discharging Clinician: Rozina Mckeon Patient Disposition: Home, Self-Care Activity: pelvic rest Diet: regular Patient Instructions: Antibiotic Form Stand Alone Forms: General Discharge Information Follow-up/Referrals: Rozina Mckeon MD [Physician] - Discharge Medications: Continued #2 Tablet 1 tablet PO DAILY Date of admission: 07/26/23 05:59 Primary Care Provider: Ignacio,Allyson Mccormick Admitting Provider: Rozina Mckeon Attending physician on admission: Rozina Mckeon Condition: Stable
[2023-07-30] MEDS: IBUPROFEN 600 MG TABLET PO (09:29)
[2023-07-30] MEDS: POLYSACCHARIDE IRON COMPLEX 150 MG CAPSULE PO (09:30)
[2023-07-30] MEDS: DOCUSATE SODIUM 100 MG CAPSULE PO (09:30)
[2023-07-30] MEDS: MULTIVIT/MIN/PREN/FOL AC/IRON TABLET 1 TAB PO (09:30)
[2023-07-31 11:23] VITALS: BP 142/92; PULSE 92; RESP 18; TEMP 37.1; O2SAT 100
== END 2023-07-30 12:25 | disposition home or self-care (01) | DRG 807 ==
LOC: ANHLDR 07-27 09:07 → ANHOB2 07-28 07:06
PROVIDERS: Admitting Provider Obstetrics & Gynecology; PCP Physician Assistant; Visit Provider Obstetrics & Gynecology
DX: O13.4 Gestational [pregnancy-induced] hypertension without significant proteinuria, complicating childbirth (principal); Z37.0 Single live birth; O70.0 First degree perineal laceration during delivery; Z3A.37 37 weeks gestation of pregnancy
CPT/HCPCS: 36415; 80053; 84550; 85014; 85018; 85025; 86592; 86850; 86900; 86901; 90715; A9270; J0290; J2590; J2795; J7120

== ENCOUNTER 2024-01-02 01:21 | Day surgery (SDC) | payer OTHER, SELFPAY ==
[2023-12-24 14:02] VITALS: BMI 33.1
--- NOTE | 2023-12-24 14:08 | PC.NURSE ---
Report to the Outpatient Waiting Room, entrance under the green pavilion located off [facility], at time _0700_ on date _[id number]_. Planned Procedure Time: _0900_. Time changes happen often and if your time is changed the preop area will call you the afternoon before. - You and your visitor will be asked to self-screen and do not enter if you have any COVID symptoms. - A mask is optional within the hospital at this time. Patients may have clear liquids (water, carbonated beverages, clear teas, apple juice) until 3 hours prior to surgery with a maximum of 20 ounces. - No food from midnight until time of surgery Take the following medications with a SIP of water the morning of surgery: ___None DO NOT STOP ANY OF YOUR OTHER PRESCRIPTION MEDICATIONS PRIOR TO SURGERY ?EXCEPT THE FOLLOWING Medications to discontinue per physician None Date to take last dose Please no make-up, nail argentine, hairspray, perfume, deodorant, or body powder the day of surgery. No jewelry (including any body piercings) or valuables the day of surgery, leave them at home. Please take a shower or bath the night before, or the morning of, surgery with an antibacterial soap. Wear comfortable, loose fitting clothing. - Jewelry must be removed prior to entering the operating room. Rings and piercings that are not removed may be cut off. - The hospital will not accept responsibility for valuables. - Please leave all valuables, including medications, at home the day of surgery. If you are going home after surgery, a licensed school bus driver/teacher assistant must drive you home. - NO public transportation without another adult if you receive anesthesia. - We recommend that an adult stay with you for 24 hours following discharge. - We also recommend that you do not drive, make important decision, drink alcoholic beverages, or take any drugs that were not prescribed by your health care provider for at least 24 hours after your discharge time. Follow any additional instructions given to you from your surgeon. If you or anyone in your household have experienced Covid symptoms in the past week, please notify your surgeon or the nurse liaison at the phone number below for possible testing. Telephone instructions given to __[email or web address]__and asked if any additional questions and then verbalized understanding. Patient advised to call surgeon office or pre surgery nurse liaison [phone] if any additional questions.
--- NOTE | 2024-01-01 13:17 | WPDANESEPPF ---
Anes - Initial Pre Proc Eval Procedure: Operation Date: 01/02/24 09:00 Proposed Procedures p Laparoscopic Bilateral Ovarian Cystectomy - Rozina Mckeon MD Date/Time: 01/01/24 13:17 Surgeon: Rozina Mckeon MD Pre Op Diagnosis: dermoid cyst Patient Data Age: 23 Gender: F Height: 1.55 m Weight: 79.5 kg Allergies Allergy/AdvReac Type Severity Reaction Status Date / Time No Known Allergies Allergy Verified 01/02/24 08:22 Home Medications Medication Instructions Recorded Confirmed Type No Home Medications 12/24/23 12/24/23 History Patient hx anesthesia problems: none Family hx anesthesia problems: none Results Review: All pre-operative results and documents have been reviewed as part of the pre-operative evaluation. [facility] Past Medical History Medical History (Updated 01/02/24 @ 09:01 by Rozina Mckeon MD) IUP (intrauterine ), incidental Family History Family History (Updated 07/13/23 @ 13:27 by Josey Ramachandran RN) Father Retinitis pigmentosa Social History Social History Smoking status: Never smoker Tobacco type: e-cigarettes/vaping Alcohol intake: current Drinks per week: 2 Substance use: never Other substance usage details: quit first trimester Lack of Transportation: No Lack of Food: Never True Current Housing: I Have Housing Concerned About Future Housing: No Difficulty Paying Gas/Electric Bills: No Difficulty Paying for Meds: No Currently Unemployed: No Education: High School Diploma/GED Difficulty w/ Childcare or Family Care: No Living arrangements: with family Spiritual care concerns: No Anes - Eval Final PreProcedure Day of Procedure 01/01/24 13:17 Patient weight: obese Heart: regular rate and rhythm Lungs: clear to auscultation Airway: Mallampati scale class II Neurological: alert and oriented Last oral intake: >/= 8 hours ASA classification: II Emergent: no Anesthetic plan: proceed Anesthesia type and monitoring: general ETT and standard monitoring Results Review: All pre-operative results and documents have been reviewed as part of the pre-operative evaluation. Informed Consent: The patient's anesthetic plan and its attendant risks and benefits were discussed with the patient/family/POA. Questions were solicited and answers provided to the satisfaction of the patient/family/POA.
[2024-01-02] VITALS (10 sets, daily range): BP systolic 121–158; BP diastolic 75–113; PULSE 56–115; RESP 12–22; TEMP 36.1–36.8; O2SAT 96–100
[2024-01-02] MEDS: LACTATED RINGERS 1,000 ML 30 ML IV CONT ×2 (08:21→11:06)
[2024-01-02] MEDS: SCOPOLAMINE 1 MG PATCH 1 PATCH TRANSDERM (08:26)
[2024-01-02] MEDS: KETOROLAC 15 MG/ML VIAL (*BKC) IV PUSH (08:39)
[2024-01-02] MEDS: ACETAMINOPHEN 500 MG TABLET 1000 MG PO (08:39)
--- NOTE | 2024-01-02 09:00 | PM.IMHP ---
H&P: HPI History of Present Illness Date/Time: 01/02/24 09:00 Chief Complaint: Ovarian cyst Narrative: This patient is a 23-year-old female with a 5 cm dermoid cyst. We agreed today to move forward with the resection of the dermoid cyst. She also has a cyst on her contralateral ovary. She will have bilateral laparoscopic ovarian cystectomy. I explained the procedure to the patient in detail. She understands the risk. She understands the procedure as it was explained in detail. Spent over 40 minutes [id number]. More than 50% was counseling. The patient understands the procedure. The procedure was described to the patient in great detail. the patient also understands the risks. The risks were also explained in detail. She understands that injuries May occur during surgery. She understands these injuries can result in hospitalization, more surgery, and severe illness. She understands there is risk of hemorrhage and infection. This patient is a 23-year-old female with bilateral ovarian cyst. One cyst was a dermoid. We have agreed to perform laparoscopic bilateral ovarian cystectomy. She understands risks, benefits, and alternatives. She is completed the informed consent process and is ready to proceed. Review of Systems Review of Systems: All systems reviewed & are unremarkable except as noted in HPI and below Constitutional: Constitutional: Denies chills, Denies fatigue, Denies fever(s) and Denies weakness Eyes: Eyes: Denies blurry vision, Denies change in vision, Denies loss of peripheral vision, Denies loss of vision, Denies other visual disturbances and Denies eye pain ENT: Denies vertigo, Denies dizziness, Denies hearing loss, Denies mouth pain, Denies nasal obstruction, Denies neck mass and Denies neck pain Cardiovascular: Cardiovascular: Denies chest pain, Denies diaphoresis, Denies syncope, Denies leg edema and Denies dyspnea Respiratory: Respiratory: Denies chest congestion, Denies cough, Denies hemoptysis, Denies dyspnea and Denies wheezing Gastrointestinal: Gastrointestinal: Denies abdominal pain, Denies constipation, Denies diarrhea, Denies nausea and Denies vomiting Genitourinary: Genitourinary: Denies hematuria, Denies change in libido, Denies nocturia, Denies genital lesions, Denies flank pain and Denies urinary urgency Musculoskeletal: Musculoskeletal: Denies abnormal gait, Denies back pain, Denies myalgias, Denies arthralgias, Denies joint swelling, Denies muscle weakness and Denies neck pain Integumentary/Breasts: Skin/Breast: Denies swelling, Denies breast pain, Denies breast mass, Denies dry skin, Denies nipple discharge, Denies unusual bruising and Denies jaundice Neurologic: Denies Neuro-related abnormal movements, Denies Abnormal speech present, Denies abnormal gait, Denies behavioral changes, Denies confusion, Denies vertigo, Denies dizziness, Denies syncope, Denies loss of vision, Denies memory loss, Denies convulsions and Denies weakness Psychiatric: Psychiatric: Denies abnormal sleep pattern, Denies behavioral changes, Denies change in libido, Denies confusion, Denies depression, Denies anhedonia and Denies memory loss Endocrine: Endocrine: Reports no additional endocrine complaints, Denies change in libido and Denies fatigue Hematologic/Lymphatic: Hematologic/Lymphatic: Reports no additional hematologic/lymphatic complaints Allergic/Immunologic: Allergic/Immunologic: Reports no additional allergic/immunologic complaints and Denies wheezing [facility] Past Medical History Medical History (Updated 01/02/24 @ 09:01 by Rozina Mckeon MD) IUP (intrauterine ), incidental Family History Family History (Updated 07/13/23 @ 13:27 by Josey Ramachandran RN) Father Retinitis pigmentosa Social History Social History Smoking status: Never smoker Tobacco type: e-cigarettes/vaping Alcohol intake: current Drinks per week: 2 Substance use: never Other substance usage details: quit first trimester
--- NOTE | 2024-01-02 09:02 | WPDHPUPDATE1 ---
History and Physical Update Update Date/Time: 01/02/24 09:02 History and Physical has been reviewed, including an updated exam of the patient. There are NO changes in the patient's condition. Risks, benefits, and alternatives have been discussed and questions answered. Patient agrees to proceed with procedure.
[2024-01-02] MEDS: fentaNYL CITRATE INJ (*CRX) 100 MCG/2 ML VIAL 25 MCG IV PUSH ×3 (11:19→11:40)
--- NOTE | 2024-01-02 11:21 | W.PM.PROC2 ---
Procedure Note - Detailed Date of Procedure 01/02/24 Pre-op Diagnosis dermoid cyst Post-op Diagnosis Other ( right ovarian Endometrioma, endometriosis, left ovarian follicular cyst) Procedure Performed laparoscopic bilateral ovarian cystectomy, right salpingo-oophorectomy, adhesiolysis, resection of endometriosis, fulguration of endometriosis Surgeon Rozina Mckeon MD Anesthesia General Indications Pelvic pain Findings right ovarian endometrioma -5 cm, endometriosis and scarring around the right ovary. Hemorrhagic endometrial implant at the infundibulopelvic ligament. Possible endometrial implants throughout the pelvis and on the dome of the bladder Description of Procedure The patient was taken to the operating room. She was prepped and draped in the dorsal lithotomy position after induction general anesthesia. A 5 mm incision was made with a scalpel on the abdominal skin in the left upper quadrant of the abdomen. A 5 mm trocar was inserted into the intra-abdominal cavity under direct visualization the scope. In the same fashion a 5 mm left lower quadrant trocar was inserted and a 5 mm infraumbilical trocar was inserted. after inspection of the abdomen the left lower quadrant trocar was changed to 11 mm with expansion of the skin incision. Bilateral ovarian cystectomy performed. This was done with LigaSure cautery and blunt dissection. Cyst capsule the right could not be removed. The tissue surrounding the ovary was full of endometrial implants. a decision to remove the right ovary with surrounding tissue and the fallopian tube was made. Infundibulopelvic ligament was cauterized after identification of the ureter. It was transected cauterized with LigaSure cautery. The paraovarian tissue was dissected with blunt and sharp dissection and cautery. It was placed in endobag and taken out the left lower quadrant trocar site. Adhesions and endometrial implants throughout the pelvis were removed. They were resected, the endometrial implants, as well as fulgurated. Adhesiolysis was performed. At least 20 minutes of adhesiolysis was performed. The right adnexa And right pelvic sidewall were treated with Surgicel powder. The pelvis was irrigated. The pneumoperitoneum was reduced. The trocars were removed. Skin was closed with subcuticular 4 micro. The patient's incisions were covered with Dermabond. She was taken recovery room in stable condition. Sponge lap and needle counts were correct x2. Pathology Yes Complications No immediate complications Condition Stable Disposition Same day
[2024-01-02] MEDS: oxyCODONE HCL (*CRX) 5 MG TAB IR PO (11:57)
== END 2024-01-02 13:12 | disposition home or self-care (01) ==
PROVIDERS: Visit Provider Obstetrics & Gynecology
PROC: (CPT 49320; principal; 2024-01-02 09:00)
DX: N80.101 Endometriosis of right ovary, unspecified depth (principal); N83.01 Follicular cyst of right ovary; N83.202 Unspecified ovarian cyst, left side; N80.399 Endometriosis of the pelvic peritoneum, other specified sites, unspecified depth; N70.11 Chronic salpingitis; E66.9 Obesity, unspecified; Z68.32 Body mass index [BMI] 32.0-32.9, adult
CPT/HCPCS: 58661; 58662; 88305; A9270; J1100; J1885; J2250; J2405; J2704; J3010; J7030; J7120

== ENCOUNTER 2024-03-14 12:03 | Outpatient (CLI) | payer OTHER, SELFPAY ==
[2024-03-14 12:41] LABS: Basophils Absolute Auto 0.1 K/mm3 (0.0-0.1); Basophils Percent Auto 1.1 % (0.2-1.2); Eosinophils Absolute Auto 0.1 K/mm3 (0-0.3); Eosinophils Percent Auto 1.7 % (0-4.4); Hematocrit 40.5 % (37.0-47.0); Hemoglobin 13.6 g/dL (12.0-15.0); Immature Granulocyte Absolute 0.01 K/mm3 (0.00-0.031); Immature Granulocyte Percent A 0.2 % (0-0.5); Lymphocytes Absolute Auto 1.64 K/mm3 (0.9-3.2); Lymphocytes Percent Auto 35.4 % (18.3-44.2); Mean Corpuscular HGB Conc 33.6 g/dl (32-36); Mean Corpuscular Hemoglobin 28.3 pg (26-34); Mean Corpuscular Volume 84.2 fl (80-100); Mean Platelet Volume 9.8 fl (7.4-10.4); Monocytes Absolute Auto 0.4 K/mm3 (0.1-0.6); Monocytes Percent Auto 7.8 % (2.6-8.5); Neutrophils Absolute Auto 2.5 K/mm3 (1.3-6.7); Neutrophils Percent Auto 53.8 % (45.5-73.1); Platelet Count Result 286 k/mm3 (150-375); Red Blood Count 4.81 M/mm3 (4.2-5.4); Red Cell Distribution Width 12.7 % (11.5-14.5); White Blood Count 4.6 K/mm3 (4.5-10.0)
[2024-03-14 12:43] LABS: Appearance Urine Clear (Clear); Bilirubin Urine Negative (Negative); Blood Urine Negative (Negative); Color Urine Yellow (Yellow); Glucose Urine UA Negative (Negative); Ketones Urine Negative (Negative); Leukocyte Esterase Ur Negative LEU/UL (Negative); Nitrate Urine Negative (Negative); Protein Urine Negative (Negative); Specific Grav Ur 1.019 (1.001-1.035); Urobilinogen Urine 0.2 mg/dL (<2.0)
[2024-03-14 12:58] LABS: Alanine Aminotransferase 16 U/L (6-35); Albumin Level 4.6 g/dL (3.5-5.1); Alkaline Phosphatase 125 U/L (38-126); Anion Gap 8 mmol/L (4-12); Aspartate Amino Transferase 18 U/L (14-36); Bilirubin,Total 0.5 mg/dL (0.2-1.3); Blood Urea Nitrogen 11 mg/dL (7-17); Calcium 9.6 mg/dL (8.4-10.2); Carbon Dioxide 25 mmol/L (22-30); Chloride 108 mmol/L (98-107); Cholesterol 130 mg/dL (0-200); Estimated Glomerular Filt Rate > 60; Glucose 83 mg/dL (65-110); HDL Direct 43 mg/dL; Potassium 3.9 mmol/L (3.4-5.0); Sodium 141 mmol/L (137-145); Triglycerides 98 mg/dL (<150)
[2024-03-14 13:09] LABS: Add Urine Microscopic? NO; LDL Cholesterol Direct 74 mg/dL
[2024-03-14 13:15] LABS: Hemoglobin A1C 4.5 % (<5.7)
[2024-03-14 13:26] LABS: Thyroid Stimulating Hormone < 0.015 uIU/mL (0.465-4.680)
== END 2024-03-14 12:04 | disposition home or self-care (01) ==
LOC: ANHLAB 12:04
PROVIDERS: PCP Nurse Practitioner Family; Visit Provider Nurse Practitioner Family
DX: Z00.00 Encounter for general adult medical examination without abnormal findings (principal); D64.9 Anemia, unspecified; Z68.31 Body mass index [BMI] 31.0-31.9, adult; Z13.1 Encounter for screening for diabetes mellitus; Z13.6 Encounter for screening for cardiovascular disorders; Z13.29 Encounter for screening for other suspected endocrine disorder
CPT/HCPCS: 36415; 80053; 80061; 81003; 82728; 83036; 83540; 83550; 84443; 85025

== ENCOUNTER 2024-04-11 13:14 | Outpatient (CLI) | payer OTHER, SELFPAY ==
[2024-04-11 14:16] LABS: Total Triiodothyronine (T3) 0.99 NG/ML (0.97-1.69)
[2024-04-11 14:21] LABS: Free T4 Free Thyroxine 0.79 ng/mL (0.78-2.19)
== END 2024-04-11 13:15 | disposition home or self-care (01) ==
LOC: ANHLAB 13:16
PROVIDERS: PCP Nurse Practitioner Family; Visit Provider Nurse Practitioner Family
DX: R79.89 Other specified abnormal findings of blood chemistry (principal)
CPT/HCPCS: 36415; 84439; 84443; 84480

== ENCOUNTER 2024-04-25 14:28 | Outpatient (CLI) | payer OTHER, SELFPAY ==
--- NOTE | ~2024-04-25 | US_ITS ---
EXAMINATION: US thyroid DATE: 04/25/2024 14:56 INDICATION: Abnormal labs TECHNIQUE: Multiple ultrasound images of the thyroid were obtained. COMPARISON: None. FINDINGS: The right thyroid lobe measures 3.8 x 1.4 x 1.6 cm. The left thyroid lobe measures 4.4 x 1.2 x 1.3 c m. The isthmus measures 0.2 cm. There is normal echotexture and echogenicity throughout the thyroid g land. No discrete nodules identified. Diffusely increased vascular flow is present. IMPRESSION: Diffusely increased thyroid vascular flow, most typically associated with active Graves' disease. Reviewed, dictated and finalized at location K. IMPRESSION: Diffusely increased thyroid vascular flow, most typically associated with activ e Graves' disease.
== END 2024-04-25 14:29 | disposition home or self-care (01) ==
PROVIDERS: PCP Nurse Practitioner Family; Visit Provider Nurse Practitioner Family
DX: R93.89 Abnormal findings on diagnostic imaging of other specified body structures (principal); R79.89 Other specified abnormal findings of blood chemistry
CPT/HCPCS: 76536

== ENCOUNTER 2024-08-15 13:08 | Outpatient (CLI) | payer OTHER, SELFPAY ==
[2024-08-15 14:13] LABS: Free T4 Free Thyroxine 0.49 ng/mL (0.78-2.19)
[2024-08-15 14:32] LABS: Total Triiodothyronine (T3) 0.99 NG/ML (0.97-1.69)
== END 2024-08-15 13:09 | disposition home or self-care (01) ==
PROVIDERS: PCP Nurse Practitioner Family; Visit Provider Nurse Practitioner Family
DX: R79.89 Other specified abnormal findings of blood chemistry (principal)
CPT/HCPCS: 36415; 84439; 84443; 84480

== ENCOUNTER 2024-11-07 12:05 | Outpatient (CLI) | payer OTHER, SELFPAY ==
--- OUTSIDE RECORDS SUMMARY | 2024-11-07 12:14 | XMS_ITS | Continuity of Care Document ---
Author Organization [facility] Address [address] [place] [address] Phone Care Team Providers Care Front Office Supervisor Name Role Phone Aguirre OD, Andre Unavailable Unavailable Procedures Procedure Date Eye Exam, New Patient Refraction Advance Directives Directive Yes / No Effective Date File Name No Information Encounters Encounter Description Practice Location Reason(s) For Visit Diagnoses Date Provider Providers Copied on Encounter [facility], [address], [place], [place], [id number], [place] tel:[phone] [facility] No Information [phone] Aguirre OD Andre. [address] , [address], [place], [address], [place]. tel:[phone] Family History Family Member Type Diagnosis Age At Onset No Information Payers Payer name Insurance type Covered republican ID Authoriza tion(s) Medicaid [facility] [id number] Social History Type Description Quantity Date Captured Comments Sex Female Smoking Status No Information Chief Complaint And Reason For Visit No Information Reason For Referral Reason For Referral No Information History Of Present Illness Encounter Date Complaint History Of Prese nt Illness No Information Functional Status Date Functional Assessmen t No Information Instructions Date Instruction Additional Infor mation No Information Assessments Type Assessment Date No Information Patient Care Teams Name Effective Dates (start - stop) Status Members No Information
--- OUTSIDE RECORDS SUMMARY | 2024-11-07 12:14 | XMS_ITS | Data Portability ---
Author Organization [employer] , [facility] Address [address] [place] [address] Assessment No assessment recorded. Plan of Treatment Reminders Order Date Submit Date Provider Last Modified By Organization Details Last Modified Time Details Appointments None recorde d. Lab bacteri al vaginos is + vaginit is panel, vaginal 2021 022 [id number] [facility], [address] [place], [address], 3 03:39:02 pap, LB 2021 022 [facility], [address] [place], [address], 2 19:29:30 unliste d lab - Pap reflex hold 2021 022 [place] [facility], [address] [place], [address], 2 11:54:05 bacteri al vaginos is + vaginit is panel, vaginal 2021 022 [place] [facility], [address] [place], [address], 2 14:20:14 pregnan cy test, urine 2022 023 ekndy [facility], [address] [place], [address], 3 13:56:42 Referral primary care provide r referra l 04/04/ 2022 04/04/2 022 [email or web address] Not available 12:30:33 Procedures None recorde d. Surgeries None recorde d. Imaging US, obstetr ic, transva ginal 2022 023 [email or web address] Not available 14:16:11 Medication Orders metroni dazole 500 mg tablet [address] [id number], [address] , [place], [place], [id number], 12:33:31 Patient TargetsNo targets recorded. Patient Instructions Encounter Date Encounter Id Patient Instructions Last Modified By Organization Details Last Modified Time 01/02/2022 [id number] Patient Health Questionnaire-2* [email or web address] Not available 02/14/2022 10:00:39 learning about dietary guidelines tcarrell Not available 01/02/2022 15:01:10 eating healthy foods: care instructions [email or web address] Not available 01/02/2022 15:01:10 abuse/domestic violence education tcarrell Not available 01/02/2022 15:01:10 weight managemen t education tcarrell Not available 01/02/2022 15:01:10 06/08/2022 [id number] vaginitis: care instructions [email or web address] Not available 06/08/2022 17:58:09 Reason for Referral Primary Care Provider Referr al for Gynecologic examination Referring Physician: Yunier Thomas, [employer]2B [employer]SIDE SALES REPRESENTATIVE, Encounter Date: 01/02/2022 Results Created Date Observation Date Name Description Value Unit Range Abnormal Flag Note LastModifiedBy Organization Detail LastModifiedTime 01/04/2001/03/2022 PAP REFLE X HOLD Pap reflex hold Receiv ed receiv ed Not Available [place], [address], 01/03/2022 11:54:05 01/03/20 22 01/03/2022 VAGIN ITIS PLUS STD PANEL bacterial vaginosis BV POS negati ve positive Not Available [place], [address], 01/04/2022 09:51:59 01/03/20 22 01/03/2022 VAGIN ITIS PLUS STD PANEL audrey species C. spp neg negati ve Not Available [address], [address], 01/04/2022 09:51:59 01/03/20 22 01/03/2022 VAGIN ITIS PLUS STD PANEL audrey glabrata C. gla neg negati ve Not Available [address], [address], 01/04/2022 09:51:59 01/03/20 22 01/03/2022 VAGIN ITIS PLUS STD PANEL trichomonas vaginalis CV/TV TRICH neg negati ve Not Available [address], [address], 01/04/2022 09:51:59 01/03/20 22 01/03/2022 VAGIN ITIS PLUS STD PANEL chlamydia trachomatis CT neg negati ve If both Pap and Endoc ervic al swabs are colle cted, the Prese rvCyt Solut ion liqui d Pap speci men must be colle cted befor e the endoc ervic al swab speci men. Not Available [address], [address], 01/04/2022 09:51:59 01/03/20 22 01/03/2022 VAGIN ITIS PLUS STD PANEL neisseria gonorrhoeae GC neg negati ve If both Pap and Endoc ervic al swabs are colle cted, the Prese rvCyt Solut ion liqui d Pap speci men must be colle cted befor e the endoc ervic al swab speci men. Not Available [address], [address], 01/04/2022 09:51:59 01/03/20 22 01/05/2022 THINP REP TIS PAP clinical information: normal Infor matio n not provi ded Not Available [facility], [place], [address], 01/05/2022 19:29:30 01/03/20 22 01/05/2022 THINP REP TIS PAP LMP: normal INFOR MATIO N NOT PROVI DED Not Available [address] [facility], [place], [address], 01/05/2022 19:29:30 01/03/20 22 01/05/2022 THINP REP TIS PAP prev. Pap: normal INFOR MATIO N NOT PROVI DED Not Available [address] [place], [address], 01/05/2022 19:29:30 01/03/20 22 01/05/2022 THINP REP TIS PAP prev. BX: normal INFOR MATIO N NOT PROVI DED Not Available [address], [address], 01/05/2022 19:29:30 01/03/20 22 01/05/2022 THINP REP TIS PAP source: normal Infor matio n not provi ded Not Available [address], [place], [address], 01/05/2022 19:29:30 01/03/20 22 01/05/2022 THINP REP TIS PAP statement of adequacy: normal Satis facto ry for evalu ation . Endoc ervic al/tr ansfo rmati on zone compo nent prese nt. Age and/o r menst rual statu s not provi ded Not Available [address] [place], [address], 01/05/2022 19:29:30 01/03/20 22 01/05/2022 THINP REP TIS PAP interpretati on/result: normal Negat sima for intra epith elial lesio n or malig deshaun . Not Available [address] [place], [address], 01/05/2022 19:29:30 01/03/20 22 01/05/2022 THINP REP TIS PAP infection: normal Shift in vagin al ragini sugge stive of bacte rial vagin osis. Not Available [address] [address] [place], [address], 01/05/2022 19:29:30 01/03/20 22 01/05/2022 THINP REP TIS PAP comment: normal This Pap test has been evalu ated with compu ter brooklynn vania techn ology . Not Available [address] [address] [place], [address], 01/05/2022 19:29:30 01/03/20 22 01/05/2022 THINP REP TIS PAP cytotechnolo gist: normal LM, CT( CP) CT scree jagdish locat ion: [address] [address] [place] [address] Not Available [address] [address] [place], [address], 01/05/2022 19:29:30 01/03/20 22 01/05/2022 THINP REP TIS PAP comment EXPLA NATOR Y NOTE: The Pap is a scree jagdish test for cervi nima cance r. It is not a diagn ostic test and is subje ct to false negat sima and false posit sima resul ts. It is most relia ble when a satis facto ry sampl e, regul dex obtai rafa, is submi tted with relev ant clini nima findi ngs and histo ry, and when the Pap resul t is evalu ated along with histo venkat and curre nt clini nima infor matio n. Not Available [address] [address] [place], [address], 01/05/2022 19:29:30 01/03/20 22 01/03/2022 PAP REFLE X HOLD Pap reflex hold Receiv ed receiv ed Not Available [facility] [address] [place], [address], 01/11/2022 11:45:32 01/03/20 22 01/03/2022 PAP REFLE X HOLD Pap reflex hold Receiv ed receiv ed Not Available [address], [address], 01/17/2022 12:29:47 01/03/20 22 01/03/2022 PAP REFLE X HOLD Pap reflex hold Receiv ed receiv ed Not Available [address], [address], 01/17/2022 13:04:26 01/03/20 22 01/03/2022 PAP REFLE X HOLD Pap reflex hold Receiv ed receiv ed Not Available [address], [address], 01/18/2022 12:05:39 01/03/20 22 01/03/2022 PAP REFLE X HOLD Pap reflex hold Receiv ed receiv ed Not Available [address], [address], 01/19/2022 10:11:28 06/08/20 22 06/13/2022 VAGIN ITIS PANEL bacterial vaginosis BV POS negati ve abnormal Not Available [address], [address], 06/13/2022 14:20:14 06/08/20 22 06/13/2022 VAGIN ITIS PANEL audrey species C. spp neg negati ve normal Not Available [address], [address], 06/13/2022 14:20:14 06/08/20 22 06/13/2022 VAGIN ITIS PANEL audrey glabrata C. gla neg negati ve normal Not Available [address], [address], 06/13/2022 14:20:14 06/08/20 22 06/13/2022 VAGIN ITIS PANEL trichomonas vaginalis CV/TV TRICH neg negati ve normal Not Available [place] [facility] [address] [facility], [place], [address], 06/13/2022 14:20:14 01/05/20 23 01/04/2023 pregn dawit test, urine HCG positi ve Not Available [facility] [address] [facility], [place], [address], 01/04/2023 12:34:14 01/06/20 23 01/04/2023 US, obste tric, trans vagin al No observ ation record ed. [email or web address] [address], [place], [address], 01/05/2023 00:59:18 Result Notes None recorded. Procedures Surgical History Date Name Laterality Status Provider Name and Address Organization Details Recorded Time 01/02/2022 Date of Last Pap Smear completed [facility] 06/08/2022 17:33:33 Imaging Results Imaging Date Name Status LastModified by Organization Details LastModified Time 01/04/2023 US, obstetric, transvaginal completed [email or web address], [place], [address], 01/05/2023 00:59:18 Procedure Notes None recorded. Medical Equipment None Reported. Allergies No known drug allergies Medications Name Sig Start Date Stop Date Status Note LastModified by Organization Details LastModified Time fluconazole 150 mg tablet TAKE 1 TABLET BY MOUTH EVERY DAY 01/04 completed Not Available Not Available Not Available metronidazo le 0.75 % (37.5 mg/5 gram) vaginal gel INSERT ONE APPLICATO RFUL VAGINALLY AT BEDTIME FOR 5 DAYS 06/08 completed Not Available Not Available Not Available metronidazo le 500 mg tablet TAKE 1 TABLET BY MOUTH EVERY 12 HOURS FOR 7 DAYS 01/04 completed Not Available Not Available Not Available nitrofurant oin monohydrate /macrocryst als 100 mg capsule TAKE 1 CAPSULE BY MOUTH EVERY 12 HOURS FOR 5 DAYS 01/04 completed Not Available Not Available Not Available active Not Available Not Avai lable Not Available Vitals Date Recorded Body height Body mass index (BMI) Body weight Body temperature Systolic blood pressure Diastolic blood pressure Provider Name and Address Organization Details Last Updated DateTime 2 152.4 cm 27.1 kg/m2 68054.3 4 g 98 [degF] 122 mm[Hg] 70 mm[Hg] Mandy Walkernonathan [facility] 15:00:04 Date Recorded Body height Body mass index (BMI) Body weight Systolic blood pressure Diastolic blood pressure Provider Name and Address Organization Details Last Updated DateTime 06/08/2022 152.4 cm 26.2 kg/m2 51956.38 g 120 mm[Hg] 74 mm[Hg] Radha Mike [facility] 17:34:55 Date Recorded Body height Body mass index (BMI) Body weight Systolic blood pressure Diastolic blood pressure Provider Name and Address Organization Details Last Updated DateTime 01/04/2023 152.4 cm 25.8 kg/m2 32141.19 g 122 mm[Hg] 70 mm[Hg] Diya Peguero [facility] 3 13:45:07 Social History Question Answer Notes LastModified by Organizat ion Details LastModified Time Tobacco Smoking Status Never Smoker Diya Sudhir [place], [place] [facility] 01/04/2023 13:45:42 What Is Your Level Of Alcohol Consumption? Occasional [email or web address] Information not available 01/04/2023 What Type Of Diet Are You Following? REGULAR [email or web address] Information not available 01/04/2023 What Is Your Relationship Status? Single [email or web address] Information not available 06/08/2022 Are You Sexually Active? Yes [email or web address] Information not available 01/02/2022 Do You Use Any Illicit Or Recreational Drugs? No [email or web address] Information not available 01/04/2023 Do You Or Have You Ever Used Any Other Forms Of Tobacco Or Nicotine? No [email or web address] Information not available 01/04/2023 Sex: Unknown Functional Status None recorded. Mental Status None recorded. Family History Relationship Description Onset Age of this Age Resolved Age Notes LastModified by Organization Details LastModified Time Father No current problems or disability [email or web address] Not available 01/02 14:22:34 Mother No current problems or disability [email or web address] Not available 01/02 14:22:34 Medical History Condition Response Other Cancer N High Blood Pressure N Colon Cancer N Cytomegalovirus N Hyperthyroidism N Herpes (HSV) N Breast Cancer N Blood Transfusion N MRSA N Lung Cancer N Hypothyroidism N Depression N Incontinence N Panic Attacks N Neurological Disorder N Deep Vein Thrombosis N Anxiety Disorder N Autoimmune disease N Arthritis N Tuberculosis/Positive PPD N Shingles N Polycystic Ovarian Syndrome N Cervical Cancer N Hematuria N Chlamydia N Varicosities N Stroke N Crohn's Disease N Seasonal allergies N Alzheimer's/Dementia N COPD/Emphysema N HPV/Genital Warts N Endometriosis N IBS (Irritable Bowel Syndrome) N History of Abnormal Pap N High Cholesterol N Liver Disease N Kidney Infection N Fibromyalgia N Ulcer N Kidney Disease N HIV N Gallbladder disease N Sickle Cell Disease/Trait N Von Willebrand disease N ADD/ADHD N Eating Disorder N Diabetes Mellitus (non-insulin dependent ) N Anemia N Ovarian Problems N Multiple Sclerosis N Gonorrhea N Frequent Urinary Tract infections N Osteopenia N Headaches/migraines N GERD (reflux) N Ovarian Cancer N Diabetes (insulin dependent) N Seizures/Epilepsy N Fibroids N Asthma N Heart Attack N Lupus N Endometrial Cancer N Rubella N Blood Clotting Disorder N Bipolar Disorder N Diabetes Mellitus (during ) N Ulcerative Colitis N Hepatitis N Heart Disease N Pulmonary Embolism N RPR N Chicken Pox N Osteoporosis N Gynecological History Statement/Question Response Date of Last Pap Smear 01/02/2022 Current Control Method None Age at Menarche 12 Flow Heavy Date of LMP 11/09/2022 Obstetrics History GPAL:G 1 P 0 0 0 0 Past Encounters Encounter ID Performer Location Encounter Start Date Encounter Closed Date Diagnosis/Indication Diagnosis SNOMED-CT Code Diagnosis ICD10 Code Diagnosis Note [id number] YUNIER SANCHEZ ISABEL THOMAS [facility] [address] [place] [address] 01/02/2022 14:02:47 01/02/2022 22:19:22 Gynecologic examination 20812937 Z01.419 21 y.o. here for first annual exam. - Pap today with STI screen - Contracept sima counseling : Discussed options including OCPs, NuvaRing, Nexplanon, hormonal and copper IUDs. Discussed risks, benefits, and side effects of each option, including risk of VTE with hormonal contracept ion and uterine perforatio n with IUD. - Depression screen NEG - BMI counseling , diet and exercise reviewed - RTO for IUD placement or annual Screening for malignant neoplasm of cervix 916926452 Z12.4 Depression screening 171 977040 Z13.31 Hirsutism 087003048 L68. 0 Only above upper lip; denies excess hair in other areas. Does notice that hair on scalp and pubic hair is coarse and thick as well. Discussed this as a variation of normal. Rec wax over shave to minimize visual appearance and thickness. Screening for disorder 512950605 Z11.3 N89.9 [id number] Alejandrina Schulte CNM [facility] [address] [place] [address] 06/08/2022 17:11:08 06/09/2022 10:26:45 Vaginal discharge 909228470 N89.8 N76.0 [id number] ELIANA VERMA MD [facility] [address] [place] [address] 01/04/2023 12:00:45 01/05/2023 14:16:11 35469002 Z33.1 Gestation period, 8 weeks 55435595 Z3A.08 Hemorrhagi c cyst of ovary 890826864 N83.209 Health Concerns Section Related Observation LastModified by Organization Detai ls LastModified Time None Recorded Concern Status LastModified by Organization Details LastModified Time None Recorded Advance Directives Directive None Recorded Payers Encounter Date Sequence Insurance Name Policy Number Policy Smalls Covered Member ID Smalls Member ID Guarantor Name 01/02/2022 2 [facility] (MEDICAID REPLACEMENT - HMO) [id number] Olivia Blackburn [id number] Olivia Blackburn 06/08/2022 2 [facility] (MEDICAID REPLACEMENT - HMO) [id number] Olivia Blackburn [id number] Olivia Blackburn 01/04/2023 2 [facility] (MEDICAID REPLACEMENT - HMO) [id number] Olivia Blackburn [id number] Olivia Blackburn Notes Date Note Type Note Provider Name and Address Organization Details Recorded Time 01/02/2022 text/html Annual GYNReport ed bypatient.History:n o change in interval history Menstrual cycle:Normal menses Urinary symptoms:No hematuria; No incontinence Vulva:No genital lesion Vagina:Normal vaginal discharge Breast:No breast pain; No breast lump; No nipple discharge Sexual complaints:No sexual complaints; No pain during intercourse; Normal libido;Excessive facial or body hair (hirsutism) Menopausal Symptoms:No menopausal symptoms; Normal vaginal lubrication Psychological symptoms:No depression; No anxiety; No PMDD Preventive measures:Encourage self breast examination; Encourage regular exercise; Encourage no tobacco use; Encourage regular mammograms starting age 40; Followed with Q3 year pap smear and high risk HPV typing uses condoms inconsistently; monogamous relationship YUNIER SANCHEZ ASHLEY THOMAS [address] [place], [address], [employer] IV 01/02/2022 15:45:09 06/08/2022 text/html States that she is having abnormal bleedingThink that she may have BV- D/C, smell, itchPatient states that she has the feeling that she has urine leakage after using the bathroom. Denies urgency, dysuria, or frequency Alejandrina Schulte CNM [address] [place], [address], [employer] IV 06/08/2022 17:58:35 01/04/2023 text/html Confirmation VisitReported bypatient.obstetric s and gynecologyLMP: (11/09/2022); no bleeding between periods; 1; para 0; EDC (LMP): (08/16/2023); [place] (LMP): (05/01) Olivia 22 y/o patient here with postive test, U/S done today Olivia 22 y/o patient here with postive test pain since last sundayNausea+ ELIANA MCCULLOUGH MD [address] [place], [address], [employer] IV 01/04/2023 13:57:36 OBGyn Episode No OBEpisode recorded.
[2024-11-07 13:04] LABS: Free T4 Free Thyroxine 1.07 ng/dL (0.78-2.19)
== END 2024-11-07 12:06 | disposition home or self-care (01) ==
LOC: ANHLAB 12:06
PROVIDERS: PCP Nurse Practitioner Family; Visit Provider Nurse Practitioner Family
DX: E03.9 Hypothyroidism, unspecified (principal)
CPT/HCPCS: 36415; 84439; 84443

== ENCOUNTER 2025-01-23 12:35 | Outpatient (CLI) | payer OTHER, SELFPAY ==
--- NOTE | ~2025-01-23 | US_ITS ---
EXAMINATION: US thyroid DATE: 01/23/2025 13:08 INDICATION: Hypothyroidism TECHNIQUE: Multiple ultrasound images of the thyroid were obtained. COMPARISON: None. FINDINGS: The right thyroid lobe measures 3.9 x 1.6 x 1.3 cm. The left thyroid lobe measures 4.1 x 1.2 x 1.3 cm. The isthmus measures 0.2cm in anterior to posterior dimension. There is normal echotexture and echogenicity throughout the thyroid gland. No discrete nodules identified. Normal vascular flow is present. IMPRESSION: Unremarkable sonographic evaluation of the thyroid gland, as detailed above Reviewed, dictated and finalized at location A.
--- OUTSIDE RECORDS SUMMARY | 2025-01-23 12:40 | XMS_ITS | Continuity of Care Document ---
Author Organization [facility] Address [address] [place] [address] Phone Care Team Providers Care Women'S Activities Adviser Name Role Phone Aguirre OD, Andre Unavailable Unavailable Procedures Procedure Date Eye Exam, New Patient Refraction Advance Directives Directive Yes / No Effective Date File Name No Information Encounters Encounter Description Practice Location Reason(s) For Visit Diagnoses Date Provider Providers Copied on Encounter [facility], [address], [place], [place], [id number], [place] tel:[phone] [facility] No Information 1-201 0 Aguirre OD Andre. [address] [facility] , [address], [place], [address], [place]. tel:[phone] Family History Family Member Type Diagnosis Age At Onset No Information Payers Payer name Insurance type Covered libertarian ID Authoriza tion(s) Medicaid [facility]MERLY [facility], [facility] [id number] Social History Type Description Quantity Date Captured [...]
--- OUTSIDE RECORDS SUMMARY | 2025-01-23 12:40 | XMS_ITS | Data Portability ---
Author Organization [facility] [employer], Main Office Address [address] [place] [address] Assessment No assessment recorded. Plan of Treatment Reminders Order Date Submit Date Provider Last Modified By Organization Details Last Modified Time Details Appointments None recorded. Lab urinalysis complete, reflex culture 2022 023 [email or web address] [facility] ([facility] [address] [place], [address], 08:42:23 Referral None recorded. Procedures None recorded. Surgeries None recorded. Imaging None recorded. Medication Orders dicyclomine 10 mg capsule 2022 023 [id number], [address], [place], [place], [id number], 3 08:36:42 famotidine 20 mg tablet 2022 023 [facility] #[id number], [address], [place], [place], [id number], 3 08:36:41 Patient TargetsNo targets recorded. Patient InstructionsNo instructions recorded. Reason for Referral None Reported. Results Created Date Observation Date Name Description Value Unit Range Abnormal Flag Note LastModifiedBy Organization Detail LastModifiedTime 01/18/2001/17/2023 urina lysis , dipst ick Leukocytes (reference range: negative anette/ l) Trace Not Available [facility] [address], [place], [address], 01/17/2023 08:18:48 01/18/2001/17/2023 urina lysis , dipst ick Nitrite (reference rage: negative mg/dl) negati ve Not Available [address], [place], [address], 01/17/2023 08:18:48 01/18/2001/17/2023 urina lysis , dipst ick Urobilinogen (reference range: 0.2-1 mg/dl) 0.2 Not Available [address], [place], [address], 01/17/2023 08:18:48 01/18/2001/17/2023 urina lysis , dipst ick Protein (reference range: negative mg/dl) Small Not Available [address], [place], [address], 01/17/2023 08:18:48 01/18/2001/17/2023 urina lysis , dipst ick pH (reference range: 5-7) 6.5 Not Available [address], [place], [address], 01/17/2023 08:18:48 01/18/2001/17/2023 urina lysis , dipst ick Blood (reference range: negative Piotr/ l) Negati ve Not Available [address], [place], [address], 01/17/2023 08:18:48 01/18/2001/17/2023 urina lysis , dipst ick Specific [place] (reference range: 1.005-1.030) 1.025 Not Available [address], [place], [address], 01/17/2023 08:18:48 04/19/20 23 01/17/2023 urina lysis , dipst ick Ketone (reference range: negative mg/dl) Trace Not Available [address], [place], [address], 01/17/2023 08:18:48 01/18/20 23 01/17/2023 urina lysis , dipst ick Bilirubin (reference range: negative mg/dl) Small Not Available [address], [place], [address], 01/17/2023 08:18:48 01/18/20 23 01/17/2023 urina lysis , dipst ick Glucose (reference range: negative mg/dl) Negati ve Not Available [address], [place], [address], 01/17/2023 08:18:48 01/18/20 23 01/17/2023 urina lysis , dipst ick Appearance Clear Not Available [address], [place], [address], 01/17/2023 08:18:48 01/18/20 23 01/17/2023 urina lysis , dipst ick Color Yellow Not Available [address], [place], [address], 01/17/2023 08:18:48 12/29/19 23 12/27/2022 US, abdom en + pelvi s No observ ation record ed. [email or web address] [place] [address], [place], [address], 01/09/2023 15:32:02 12/30/19 23 12/29/2022 ultra sound tay nce for, and monit oring of, paren chyma l tissu e ablat ion (PROC ) No observ ation record ed. [address], [place], [address], 01/09/2023 15:31:43 Result Notes None recorded. Problems Name Problem SNOMED Code Status Onset Date Resolution Date Notes Provider Name and Address Organization Details Recorded Time Elevated blood-pressure reading without diagnosis of hypertension 790262497 Active 2022 LUDIVINA Lam [address], [place], [address], G5 3 14:09:31 Dysuria 52235094 Active 2022 Geni lowery, [facility] null, [place] 3 08:18:54 Gastroesophage al reflux disease without esophagitis 257166855 Active 2022 LUDIVINA Lam [address], [place], [address], G5 3 08:19:23 Abdominal pain 33477202 Active 2022 LUDIVINA Lam [address], [place], [address], G5 3 08:35:01 Increased frequency of urination 004519151 Active 2022 LUDIVINA Lam [address], [place], [address], G5 3 08:38:27 Problem Notes None recorded. Procedures Surgical History None recorded. Imaging Results Imaging Date Name Status LastModified by Organiz ation Details LastModified Time 12/27/2022 US, abdomen + pelvis completed [email or web address] [address], [place], [address], 01/09/2023 15:32:02 12/29/2022 ultrasound guidance for, and monitoring of, parenchymal tissue ablation (PROC) completed [address], [place], [address], 01/09/2023 15:31:43 Procedure Notes None recorded. Medical Equipment None Reported. Allergies No known drug allergies Medications Name Sig Start Date Stop Date Status Note LastModified by Organization Details LastModified Time amoxicillin 500 mg capsule TAKE ONE CAPSULE BY MOUTH FOUR TIMES DAILY FOR 7 DAYS UNTIL ALL TAKEN active Not Available Not Available No t Available labetalol 200 mg tablet TAKE 1 TABLET BY MOUTH TWICE DAILY active Not Available Not Available No t Available fluconazole 150 mg tablet TAKE 1 TABLET BY MOUTH EVERY DAY 11/20 completed Not Available Not Available Not Available metronidazo le 0.75 % (37.5 mg/5 gram) vaginal gel INSERT ONE APPLICATO RFUL VAGINALLY AT BEDTIME FOR 5 DAYS 11/20 completed Not Available Not Available Not Available metronidazo le 500 mg tablet TAKE 1 TABLET BY MOUTH EVERY 12 HOURS FOR 7 DAYS 01/17 completed Not Available Not Available Not Available ondansetron 8 mg disintegrat ing tablet DISSOLVE 1 TABLET ON THE TONGUE TWICE DAILY active Not Available Not Available No t Available oxycodone-a cetaminophe n 5 mg-325 mg tablet TAKE 1 TABLET BY MOUTH EVERY 4 HOURS NEEDED FOR PAIN active Not Available Not Available No t Available amoxicillin 875 mg tablet TAKE 1 TABLET BY MOUTH TWICE DAILY UNTIL ALL TAKEN active Not Available Not Available No t Available famotidine 20 mg tablet TAKE 1 TABLET BY MOUTH TWICE DAILY active Not Available Not Available No t Available methylpredn isolone 4 mg tablets in a dose pack FOLLOW PACKAGE DIRECTION S active Not Available Not Available No t Available dicyclomine 10 mg capsule TAKE 1 CAPSULE BY MOUTH THREE TIMES DAILY active Not Available Not Available No t Available nitrofurant oin monohydrate /macrocryst als 100 mg capsule TAKE 1 CAPSULE BY MOUTH EVERY 12 HOURS FOR 5 DAYS 01/17 completed Not Available Not Available Not Available Vitals Date Recorded Body mass index (BMI) Body height Oxygen saturation Oxygen saturation in Arterial blood by Pulse oximetry Heart rate Body temperature Body weight Systolic blood pressure Diastolic blood pressure Provider Name and Address Organization Details Last Updated DateTime 3 27.6 kg/m2 154.94 cm 98 % 98 % 81 /min 97.6 [degF] 18065.4 9 g 130 mm[Hg] 100 mm[Hg] Not Available [facility] 3 10:39:34 Date Recorded Body mass index (BMI) Body height Oxygen saturation Oxygen saturation in Arterial blood by Pulse oximetry Heart rate Body temperature Body weight Systolic blood pressure Diastolic blood pressure Provider Name and Address Organization Details Last Updated DateTime 3 27.2 kg/m2 154.94 cm 99 % 99 % 73 /min 98.5 [degF] 89298.3 g 130 mm[Hg] 90 mm[Hg] Not Available [facility] 3 10:39:34 Date Recorded Body height Provider Name an d Address Organization Details Last Updated DateTime 12/01/2022 154.94 cm Bettina Yip [facility] [place] 12/01/2022 14:22:05 Date Recorded Body height Body mass index (BMI) Body weight Body temperature Oxygen saturation Oxygen saturation in Arterial blood by Pulse oximetry Heart rate Systolic blood pressure Diastolic blood pressure Provider Name and Address Organization Details Last Updated DateTime 3 154.94 cm 26.8 kg/m2 25415.1 2 g 97.8 [degF] 98 % 98 % 76 /min 122 mm[Hg] 70 mm[Hg] Bettina Yip [facility] [place] 3 08:11:43 Social History Question Answer Notes LastModified by [employer] Details LastModified Time Tobacco Smoking Status Never Smoker Not Available [facility] 11/29/2022 10:39:23 What Is Your Level Of Alcohol Consumption? Occasional [id number] Information not available 11/29/2022 What Is Your Level Of Caffeine Consumption? None [id number] Information not available 11/29/2022 In The 14 Days Before Symptom Onset, Have You Had Close Contact With A Laboratory-confir med COVID-19 While That Case Was Ill? No [id number] Information not available 11/29/2022 In The 14 Days Before Symptom Onset, Have You Had Close Contact With A Person Who Is Under Investigation For COVID-19 While That Person Was Ill? No [id number] Information not available 11/29/2022 What Type Of Diet Are You Following? REGULAR [id number] Information not available 11/29/2022 Are You Following A Low Salt Diet? Yes [id number] Information not available 11/29/2022 Have You Ever Been Counseled For Unhealthy Alcohol Use? No [id number] Information not available 11/29/2022 Do You Use Any Illicit Or Recreational Drugs? Yes [place] [id number] Information not available 11/29/2022 Has Tobacco Cessation Counseling Been Provided? No [id number] Information not available 11/29/2022 Have You Recently Traveled Abroad? No [id number] Information not available 11/29/2022 Have You Used IV Drugs? No [id number].[id number] Information not available 11/29/2022 Do You Have Any Dietary Restrictions? Yes Can't Have Banana [id number].[id number] Information not available 11/29/2022 Do You Or Have You Ever Used Any Other Forms Of Tobacco Or Nicotine? No [id number].[id number] Information not available 11/29/2022 Sex: Unknown Functional Status Question Answer Note LastModified by Organizat ion Details LastModified Time What is your exercise level? Occasional [id number] Information not available 11/29/2022 Mental Status None recorded. Family History Relationship Description Onset Age of this Age Resolved Age Notes LastModified by Organization Details LastModified Time Mother Hypertensive disorder [id number] Not available 11/29/2022 10:39:31 Medical History No medical history recorded. Gynecological History Statement/Question Response Abnormal Pap N Flow Heavy Date of LMP 11/14/2022 STIs/STDs N Date of Last Pap 12/14/2021 Duration of Flow (days) 5 Current Control Method None Age at Menarche 12 Breast Problems no Frequency of Cycle (Q days) 5 Sexually Active? Y Menses Monthly Y Obstetrics History GPAL:G 0 P 0 0 0 0 Past Encounters Encounter ID Performer Location Encounter Start Date Encounter Closed Date Diagnosis/Indication Diagnosis SNOMED-CT Code Diagnosis ICD10 Code Diagnosis Note [id number] [facility] [address] [place] [address] 11/20/2022 00:00:00 11/20/2022 08:51:48 [id number] [facility] [address] [place] [address] 11/27/2022 00:00:00 11/27/2022 14:47:19 [id number] LUDIVINA Lam [facility] [address] [place] [address] 12/01/2022 14:04:11 12/01/2022 14:30:49 [id number] LUDIVINA Lam [facility] [address] [place] [address] 01/17/2023 08:06:43 01/17/2023 08:43:52 Gastroesophageal reflux disease without esophagitis 513991785 K21.9 Continue tums as needed and add famotidine .Counseled to avoid triggers- spicy/acid ic foods, red sauces, caffeine, alcohol, carbonated drinks. Advised elevate head of bed, not eating large meals right before bedtime. Abdominal pain 74129956 R10.9 Chronic. Lower abdominal, relieved with bowel movement.W ill do dicyclomin e PRN for cramping. Plan to follow with GI after . Increased frequency of urination 022876074 R35.0 Urine dip showed trace leuks. Symptoms most likely just from early . Advised to increase water. Follow-up if any worsening symptoms. Will send urine for culture. Health Concerns Section Related Observation LastModified by Organization Detai ls LastModified Time None Recorded Concern Status LastModified by Organization Details LastModified Time None Recorded Advance Directives Directive None Recorded Payers Encounter Date Sequence Insurance Name Policy Number Policy Smalls Covered Member ID Smalls Member ID Guarantor Name 12/01/2022 1 [facility] [id number] Olivia Blackburn [id number] Olivia Blackburn 12/01/2022 2 [facility] (MEDICAID REPLACEMENT - HMO) [id number] Olivia Blackburn [id number] Olivia Blackburn 01/17/2023 1 [facility] (O) [id number] Olivia Blackburn [id number] Olivia Blackburn 01/17/2023 2 [facility] (MEDICAID REPLACEMENT - HMO) [id number] Olivia Blackburn [id number] Olivia Blackburn Notes Date Note Type Note Provider Name and Address Organization Details Recorded Time 01/17/2023 text/html Pt. is currently 9 weeks , she went to [place] for her initial visit but will be switching to [facility]. She is concerned she has a UTI. She states she does not have the burning when she pees, just feels like there is a pressure and needs to go more often. She states she also bad indigestion. Has been an issue for awhile but worse in . She also complaints of continued lower belly pain, has been a problem since she was 17. She was told she was probably developing crohns but never had it checked. She has bowel movements daily but states they are always looser. No blood in the stool. She has some nausea but that developed a few weeks into her . LUDIVINA Lam [address] [facility] [facility], [place], [address], [place] [facility] 01/17/2023 10:26:56 OBGyn Episode No OBEpisode recorded.
--- OUTSIDE RECORDS SUMMARY | 2025-01-23 12:41 | XMS_ITS | Data Portability ---
Author Organization [employer] , [facility] [place] Address [address] [place] [address] Assessment No assessment recorded. Plan of Treatment Reminders Order Date Submit Date Provider Last Modified By Organization Details Last Modified Time Details Appointments None recorde d. Lab pregnan cy test, urine 2022 023 [email or web address] [facility], [address] [place], [address], 3 13:56:42 bacteri al vaginos is + vaginit is panel, vaginal 2021 022 [employer] [facility], [address] [place], [address], 2 14:20:14 bacteri al vaginos is + vaginit is panel, vaginal 2021 022 [id number] [employer] Jonathan, [address] [place], [address], 3 03:39:02 pap, LB 2021 022 [facility], [address] [facility], [place], [address], 2 19:29:30 [email or web address] d lab - Pap reflex hold 2021 022 [employer] [facility], [address] [place], [address], 2 11:54:05 Referral primary care provide r referra l 04/04/ 2022 04/04/2 022 [email or web address] Not available 12:30:33 Procedures None recorde d. Surgeries None recorde d. Imaging US, obstetr ic, transva ginal 2022 023 [email or web address] Not available 14:16:11 Medication Orders metroni dazole 500 mg tablet [address] [id number], [address] , [place], [place], [id number], 12:33:31 Patient TargetsNo targets recorded. Patient Instructions Encounter Date Encounter Id Patient Instructions Last Modified By Organization Details Last Modified Time 01/02/2022 [id number] Patient Health Questionnaire-2* [email or web address] Not available 02/14/2022 10:00:39 learning about dietary guidelines [email or web address] Not available 01/02/2022 15:01:10 eating healthy foods: care instructions [email or web address] Not available 01/02/2022 15:01:10 abuse/domestic violence education tcarrell Not available 01/02/2022 15:01:10 weight managemen t education tcarrell Not available 01/02/2022 15:01:10 06/08/2022 [id number] vaginitis: care instructions [email or web address] Not available 06/08/2022 17:58:09 Reason for Referral Primary Care Provider Referr al for Gynecologic examination Referring Physician: Yunier Thomas, CERTIFIED [employer]CR[employer], Encounter Date: 01/02/2022 Results Created Date Observation Date Name Description Value Unit Range Abnormal Flag Note LastModifiedBy Organization Detail LastModifiedTime 01/04/2001/03/2022 PAP REFLE X HOLD Pap reflex hold Receiv ed receiv ed [place], [address], 01/03/2022 11:54:05 01/03/20 22 01/03/2022 VAGIN ITIS PLUS STD PANEL bacterial vaginosis BV POS negati ve positive [place], [address], 01/04/2022 09:51:59 01/03/20 22 01/03/2022 VAGIN ITIS PLUS STD PANEL audrey species C. spp neg negati ve Not Available [address], [address], 01/04/2022 09:51:59 01/03/20 22 01/03/2022 VAGIN ITIS PLUS STD PANEL audrey glabrata C. gla neg negati ve Not Available [address], [address], 01/04/2022 09:51:59 01/03/20 22 01/03/2022 VAGIN ITIS PLUS STD PANEL trichomonas vaginalis CV/TV TRICH neg negati ve Not Available [address], [address], 01/04/2022 09:51:59 01/03/20 22 01/03/2022 VAGIN ITIS PLUS STD PANEL chlamydia trachomatis CT neg negati ve If both Pap and Endoc ervic al swabs are colle cted, the Prese rvCyt Solut ion liqui d Pap speci men must be colle cted befor e the endoc ervic al swab speci men. Not Available [address], [address], 01/04/2022 09:51:59 01/03/20 22 01/03/2022 VAGIN ITIS PLUS STD PANEL neisseria gonorrhoeae GC neg negati ve If both Pap and Endoc ervic al swabs are colle cted, the Prese rvCyt Solut ion liqui d Pap speci men must be colle cted befor e the endoc ervic al swab speci men. Not Available [address], [address], 01/04/2022 09:51:59 01/03/20 22 01/05/2022 THINP REP TIS PAP clinical information: normal Infor matio n not provi ded Not Available [employer] [facility], [place], [address], 01/05/2022 19:29:30 01/03/20 22 01/05/2022 THINP REP TIS PAP LMP: normal INFOR MATIO N NOT PROVI DED Not Available [address] [facility], [place], [address], 01/05/2022 19:29:30 01/03/20 22 01/05/2022 THINP REP TIS PAP prev. Pap: normal INFOR MATIO N NOT PROVI DED Not Available [address] [place], [address], 01/05/2022 19:29:30 01/03/20 22 01/05/2022 THINP REP TIS PAP prev. BX: normal INFOR MATIO N NOT PROVI DED Not Available [address], [address], 01/05/2022 19:29:30 01/03/20 22 01/05/2022 THINP REP TIS PAP source: normal Infor matio n not provi ded Not Available [address], [place], [address], 01/05/2022 19:29:30 01/03/20 22 01/05/2022 THINP REP TIS PAP statement of adequacy: normal Satis facto ry for evalu ation . Endoc ervic al/tr ansfo rmati on zone compo nent prese nt. Age and/o r menst rual statu s not provi ded Not Available [address] [place], [address], 01/05/2022 19:29:30 01/03/20 22 01/05/2022 THINP REP TIS PAP interpretati on/result: normal Negat sima for intra epith elial lesio n or malig deshaun . Not Available [address] [place], [address], 01/05/2022 19:29:30 01/03/20 22 01/05/2022 THINP REP TIS PAP infection: normal Shift in vagin al ragini sugge stive of bacte rial vagin osis. Not Available [address] [address] [place], [address], 01/05/2022 19:29:30 01/03/20 22 01/05/2022 THINP REP TIS PAP comment: normal This Pap test has been evalu ated with compu ter brooklynn vania techn ology . Not Available [address] [address] [place], [address], 01/05/2022 19:29:30 01/03/20 22 01/05/2022 THINP REP TIS PAP cytotechnolo gist: normal LM, CT( CP) CT scree jagdish locat ion: [place] [address] [place] [address] Not Available [address] [address] [place], [address], 01/05/2022 19:29:30 01/03/20 22 01/05/2022 THINP REP [...] clini nima infor matio n. Not Available [address] [address] [place], [address], 01/05/2022 19:29:30 01/03/20 22 01/03/2022 PAP REFLE X HOLD Pap reflex hold Receiv ed receiv ed Not Available [facility] [address] [place], [address], 01/11/2022 11:45:32 01/03/20 22 01/03/2022 PAP REFLE X HOLD Pap reflex hold Receiv ed receiv ed Not Available [address], [address], 01/17/2022 12:29:47 01/03/20 22 01/03/2022 PAP REFLE X HOLD Pap reflex hold Receiv ed receiv ed Not Available [address], [address], 01/17/2022 13:04:26 01/03/20 22 01/03/2022 PAP REFLE X HOLD Pap reflex hold Receiv ed receiv ed Not Available [address], [address], 01/18/2022 12:05:39 01/03/20 22 01/03/2022 PAP REFLE X HOLD Pap reflex hold Receiv ed receiv ed Not Available [address], [address], 01/19/2022 10:11:28 06/08/20 22 06/13/2022 VAGIN ITIS PANEL bacterial vaginosis BV POS negati ve abnormal Not Available [address], [address], 06/13/2022 14:20:14 06/08/20 22 06/13/2022 VAGIN ITIS PANEL audrey species C. spp neg negati ve normal Not Available [address], [address], 06/13/2022 14:20:14 06/08/20 22 06/13/2022 VAGIN ITIS PANEL audrey glabrata C. gla neg negati ve normal Not Available [address], [address], 06/13/2022 14:20:14 06/08/20 22 06/13/2022 VAGIN ITIS PANEL trichomonas vaginalis CV/TV TRICH neg negati ve normal Not Available [employer] [facility] [address] [facility], [place], [address], 06/13/2022 14:20:14 01/05/20 23 01/04/2023 pregn dawit test, urine HCG positi ve Not Available [facility] [address] [facility], [place], [address], 01/04/2023 12:34:14 01/06/20 23 01/04/2023 US, obste tric, trans vagin al No observ ation record ed. [email or web address] [address], [place], [address], 01/05/2023 00:59:18 Result Notes None recorded. Procedures Surgical History Date Name Laterality Status Provider Name and Address Organization Details Recorded Time 01/02/2022 Date of Last Pap Smear completed [facility] 06/08/2022 17:33:33 Imaging Results Imaging Date Name Status LastModified by Organization Details LastModified Time 01/04/2023 US, obstetric, transvaginal completed [email or web address] [address], [place], [address], 01/05/2023 00:59:18 Procedure Notes None recorded. Medical [...] Updated DateTime 2 152.4 cm 27.1 kg/m2 75569.3 4 g 98 [degF] 122 mm[Hg] 70 mm[Hg] Mandy Walkernonathan [place] [employer] IV 2 15:00:04 Date Recorded Body height Body mass index (BMI) Body weight Systolic blood pressure Diastolic blood pressure Provider Name and Address Organization Details Last Updated DateTime 06/08/2022 152.4 cm 26.2 kg/m2 41092.38 g 120 mm[Hg] 74 mm[Hg] Radha Mike [place] [employer] IV 2 17:34:55 Date Recorded Body height Body mass index (BMI) Body weight Systolic blood pressure Diastolic blood pressure Provider Name and Address Organization Details Last Updated DateTime 01/04/2023 152.4 cm 25.8 kg/m2 41196.19 g 122 mm[Hg] 70 mm[Hg] Diya Peguero [place] [employer] IV 3 13:45:07 Social History Question Answer Notes LastModified by Organizat ion Details LastModified Time Tobacco Smoking Status Never Smoker Diya [employer] [place] [employer] 01/04/2023 13:45:42 What Is Your Level Of Alcohol Consumption? Occasional [email or web address] Information not available 01/04/2023 What Type Of Diet Are You Following? REGULAR [email or web address] Information not available 01/04/2023 What Is Your Relationship Status? Single [email or web address] Information not available 06/08/2022 Are You Sexually Active? Yes [email or web address] Information not available 01/02/2022 Do You Use Any Illicit Or Recreational Drugs? No [email or web address] Information not available 01/04/2023 Do You Or Have You Ever Used Any Other Forms Of Tobacco Or Nicotine? No Information not available 01/04/2023 Sex: Unknown Functional [...] Colon Cancer N Cytomegalovirus N Hyperthyroidism N MRSA N Blood Transfusion N Herpes (HSV) N Breast Cancer N Lung Cancer N Depression N Hypothyroidism N Incontinence N Panic Attacks N Neurological Disorder N Deep Vein Thrombosis N Anxiety Disorder N Autoimmune disease N Arthritis N Tuberculosis/Positive PPD N Shingles N Polycystic Ovarian Syndrome N Cervical Cancer N Hematuria N Chlamydia N Stroke N Varicosities N Seasonal allergies N Crohn's Disease N Alzheimer's/Dementia N COPD/Emphysema N HPV/Genital Warts N Endometriosis N IBS (Irritable Bowel Syndrome) N History of Abnormal Pap N High Cholesterol N Liver Disease N Kidney Infection N Fibromyalgia N Ulcer N Kidney Disease N HIV N Gallbladder disease N Sickle Cell Disease/Trait N Von Willebrand disease N ADD/ADHD N Eating Disorder N Anemia N Diabetes Mellitus (non-insulin dependent ) N Multiple Sclerosis N Ovarian Problems N Gonorrhea N Frequent Urinary Tract infections [...] SNOMED-CT Code Diagnosis ICD10 Code Diagnosis Note [id number] YUNIER SANCHEZ [facility] [address] [place] [address] 01/02/2022 14:02:47 01/02/2022 22:19:22 Gynecologic examination 05673717 Z01.419 21 y.o. here for first annual exam. - Pap today with STI screen - Contracept isma counseling : Discussed options including OCPs, NuvaRing, Nexplanon, hormonal and copper IUDs. Discussed risks, benefits, and side effects of each option, including risk of VTE with hormonal contracept ion and uterine perforatio n with IUD. - Depression screen NEG - BMI counseling , diet and exercise reviewed - RTO for IUD placement or annual Screening for malignant neoplasm of cervix 928575218 Z12.4 Depression screening 171 670571 Z13.31 Hirsutism 380890032 L68. 0 Only above upper lip; denies excess hair in other areas. Does notice that hair on scalp and pubic hair is coarse and thick as well. Discussed this as a variation of normal. Rec wax over shave to minimize visual appearance and thickness. Screening for disorder [id number] Z11.3 N89.9 [id number] Alejandrina Schulte CNM [facility] [address] [place] [address] 06/08/2022 17:11:08 06/09/2022 10:26:45 Vaginal discharge 108453687 N89.8 N76.0 [id number] ELIANA VERMA MD [facility] [address] [place] [address] 01/04/2023 12:00:45 01/05/2023 14:16:11 11222001 Z33.1 Gestation period, 8 weeks 20001712 Z3A.08 Hemorrhagi c cyst of ovary 915083392 N83.209 Health Concerns Section Related Observation LastModified by Organization Detai ls LastModified Time None Recorded Concern Status LastModified by Organization Details LastModified Time None Recorded Advance Directives Directive None Recorded Payers Encounter Date Sequence Insurance Name Policy Number Policy Smalls Covered Member ID Smalls Member ID Guarantor Name 01/02/2022 2 [facility] (MEDICAID REPLACEMENT - HMO) [id number] Olivia Blackburn [id number] Olivia Blackburn 06/08/2022 2 [facility] (MEDICAID REPLACEMENT - HMO) [id number] Olivia Blackburn [id number] Olivia Blackburn 01/04/2023 2 [facility] (MEDICAID REPLACEMENT - HMO) [id number] Olivia Blackburn [id number] Olivia Blackburn Notes Date Note Type [...] monogamous relationship YUNIER SANCHEZ ASHLEY THOMAS [address] [place], [address], [employer] [facility] 01/02/2022 15:45:09 06/08/2022 text/html States that she is having abnormal bleedingThink that she may have BV- D/C, smell, itchPatient states that she has the feeling that she has urine leakage after using the bathroom. Denies urgency, dysuria, or frequency Alejandrina Schulte CNM [address] [place], [address], [employer] [place] 06/08/2022 17:58:35 01/04/2023 text/html Confirmation VisitReported bypatient.obstetric s and gynecologyLMP: (11/09/2022); no bleeding between periods; 1; para 0; EDC (LMP): (08/16/2023); [place] (LMP): (05/01) Olivia 22 y/o patient here with postive test, U/S done today Olivia 22 y/o patient here with postive test pain since last sundayNausea+ ELIANA MCCULLOUGH MD [address] [place], [address], [employer] [facility] 01/04/2023 13:57:36 OBGyn Episode No OBEpisode recorded.
--- OUTSIDE RECORDS SUMMARY | 2025-01-23 12:41 | XMS_ITS | Data Portability ---
Author Organization [facility] Address [address] [place] [address] [place] [address] Care Team Providers Care Dairy Helper Name Role Phone HEAVENLY RUELAS Primary Care Provider [phone] Assessment No assessment recorded. Plan of Treatment Reminders Order Date Submit Date Provider Last Modified By Organization Details Last Modified Time Details Appointments INJECTION 2024 01:00P M RN SCHEDULE Not available Not available Not available Lab urinalysi s, dipstick 2024 [address], [address], [place], [address], 10/27/2024 16:27:01 Referral None recorded. Procedures None recorded. Surgeries None recorded. Imaging None recorded. Medication Orders Lupron Depot 3.75 mg intramusc ular syringe kit [address] [id number], [address], [place], [place], [id number], 01/16/2025 14:39:24 Lupron Depot 3.75 mg intramusc ular syringe kit 2024 [address] [id number], [address], [place], [place], [id number], 12/19/2024 14:47:38 Lupron Depot 3.75 mg intramusc ular syringe kit 2024 025 Not available 11/21/2024 18:53:12 Cipro 500 mg tablet 2024 025 [facility] #[id number], [address], [place], [place], [id number], 01/16/2025 14:30:25 Diflucan 150 mg tablet 2024 025 [facility] #34808, [address], [place], [place], [id number], 10/27/2024 16:51:26 Lupron Depot 3.75 mg intramusc ular syringe kit 2024 025 [email or web address] Not available 10/17/2024 14:08:08 Patient TargetsNo targets recorded. Patient InstructionsNo instructions recorded. Reason for Referral None Reported. Results Created Date Observation Date Name Description Value Unit Range Abnormal Flag Note LastModifiedBy Organization Detail LastModifiedTime 10/27/1910/27/2024 CULTU RE: URINE result report SEE RESULT S BELOW abnormal Test: Cultu re: Urine Speci men Sourc e: Urine - Clean Catch Speci men Type: Urine Speci men Date: 2024 1553 Resul t Date: 2024 1122 Resul t Statu s: Final resul t Abnor mal: Yes Rachel ann Lab: [facility] [address] [facility] [address] Tel: CULTU RE ----- ----- ----- --- 10,00 0-25, 000 CFU/m l Strep tococ cus agala ctiae (Grou p B) (Abno rmal) Not Available [facility] (Lab) [address] [facility], [place], [address], 10/29/2024 12:27:38 10/27/19 25 10/27/2024 urina lysis , dipst ick Leukocytes trace Not Available Felecia sim[facility] [address], [place], [address], 10/27/2024 16:26:00 10/27/19 25 10/27/2024 urina lysis , dipst ick Protein trace Not Available [facility] [address], [place], [address], 10/27/2024 16:26:00 10/27/19 25 10/27/2024 urina lysis , dipst ick pH 5 Not Available [facility] [address], [place], [address], 10/27/2024 16:26:00 10/27/19 25 10/27/2024 urina lysis , dipst ick Blood +++ Not Available [facility] [address], [place], [address], 10/27/2024 16:26:00 10/27/19 25 10/27/2024 urina lysis , dipst ick Specific [place] 1.015 Not Available [facility] olman [address], [place], [address], 10/27/2024 16:26:00 10/27/19 25 10/27/2024 urina lysis , dipst ick Bilirubin trace Not Available [facility] ramon [address], [place], [address], 10/27/2024 16:26:00 10/27/19 25 10/27/2024 urina lysis , dipst ick Appearance cloudy Not Available [facility] [address], [place], [address], 10/27/2024 16:26:00 10/27/19 25 10/27/2024 urina lysis , dipst ick Color dark yellow Not Available [facility] [address], [place], [address], 10/27/2024 16:26:00 Result Notes None recorded. Problems Name Problem SNOMED Code Status Onset Date Resolution Date Notes Provider Name and Address Organization Details Recorded Time Pregnanc y 59778963 Completed 202208/06/2023 Jovany Cruz [facility] 3 12:59:12 Complex ovarian cyst 53543372043 3 Completed internal excresce nces/ debris with no blood flow, possible dermoid tumor Jovany Cruz [facility] 3 12:59:08 Anemia 558168613 Completed 2022 1 tab slow fe [facility] 12:59:08 Pregnanc y-induce d hyperten domingo 07013377 Completed Weekly NSTs with blood pressure checks [facility] 12:59:08 Problem Notes None recorded. Procedures Surgical History Date Name Laterality Status Provider Name and Address Organization Details Recorded Time 04/18/20 24 Date of Last Pap Smear completed Darcie Cabrera [facility] 09/12/2024 14:17:06 01/02/20 24 LAPAROSCOPIC OVARIAN CYSTECTOMY (SURG) completed Jennifer Spence [facility] 01/02/2024 21:01:19 09/11/20 23 IUD Insertion completed Jerrod Mckeon MD [address], [place], [address], [facility] 09/11/2023 17:19:30 Imaging Results None recorded. Procedure Notes None recorded. Medical Equipment None Reported. Allergies Allergen ID Allergen Name Allergen Category Reaction Reaction Severity Criticality Documentation Date Start Date Code Code System Note Provider Name and Address Organization Details Recorded Time banana extract food,medi cation Not available Not available Not available 02/02/2023 32686 9 RxNorm Joydillon Goldstein [facility] 3 14:44:47 Medications Name Sig Start Date Stop Date Status Note LastModified by Organization Details LastModified Time quetiapin e 25 mg tablet TAKE 1 TABLET BY MOUTH EVERY DAY AT BEDTIME NEEDED FOR INSOMNIA active Not Available Not Available No t Available amoxicill in 500 mg capsule TAKE ONE CAPSULE BY MOUTH FOUR TIMES DAILY FOR 7 DAYS UNTIL ALL TAKEN 01/07 completed Not Available Not Available Not Available Mirena 21 mcg/24 hr (up to 8 years) 52 mg intrauter ine device Take 1 device by intraute rine route. 2022 active 09/11/20 23 MIRENA IUD INSERTED (SUPPLIE D BY PROVIDER OFFICE ) LOT [id number] EXP AUG 2025 AND NEEDS REMOVED BY 09/11/20 31 Not Available Not Available Not Available labetalol 200 mg tablet TAKE 1 TABLET BY MOUTH TWICE DAILY 10/19 completed Not Available Not Available Not Available trazodone 50 mg tablet TAKE 1 TABLET BY MOUTH EVERY DAY AT BEDTIME NEEDED FOR INSOMNIA active Not Available Not Available No t Available fluconazo le 150 mg tablet TAKE 1 TABLET BY MOUTH EVERY 2 DAYS active Not Available Not Available No t Available metoprolo l succinate ER 50 mg tablet,ex tended release 24 hr TAKE 1 TABLET BY MOUTH DAILY active Not Available Not Available No t Available metronida zole 500 mg tablet TAKE 1 TABLET BY MOUTH EVERY 12 HOURS FOR 7 DAYS 02/02 completed Not Available Not Available Not Available ciproflox acin 500 mg tablet TAKE 1 TABLET BY MOUTH EVERY 12 HOURS 01/16 completed Not Available Not Available Not Available sulfameth oxazole 800 mg-trimet hoprim 160 mg tablet TAKE 1 TABLET BY MOUTH TWICE DAILY active Not Available Not Available No t Available ondansetr on 8 mg disintegr ating tablet DISSOLVE 1 TABLET ON THE TONGUE TWICE DAILY 08/03 completed Not Available Not Available Not Available oxycodone -acetamin ophen 5 mg-325 mg tablet TAKE 1 TABLET BY MOUTH EVERY 4 HOURS NEEDED FOR PAIN 01/07 completed Not Available Not Available Not Available amoxicill in 875 mg tablet TAKE 1 TABLET BY MOUTH TWICE DAILY UNTIL ALL TAKEN 07/12 completed Not Available Not Available Not Available famotidin e 20 mg tablet TAKE 1 TABLET BY MOUTH TWICE DAILY 04/27 completed Not Available Not Available Not Available levothyro xine 50 mcg tablet TAKE 1 TABLET BY MOUTH DAILY active Not Available Not Available No t Available Lupron Depot 3.75 mg intramusc ular syringe kit Inject 3.75 mg by intramus cular route as directed . 2024 active Not Available Not Available Not Avai lable monteluka st 10 mg tablet TAKE 1 TABLET BY MOUTH EVERY DAY AT BEDTIME active Not Available Not Available No t Available norethind grace acetate 5 mg tablet Take 1 tablet every day by oral route. 2023 active Not Available Not Available Not Avai lable metoprolo l succinate ER 25 mg tablet,ex tended release 24 hr TAKE 2 TABLET BY MOUTH DAILY active Not Available Not Available No t Available methylpre dnisolone 4 mg tablets in a dose pack FOLLOW PACKAGE DIRECTIO NS 01/07 completed Not Available Not Available Not Available albuterol sulfate HFA 90 mcg/actua tion aerosol inhaler INHALE 1 TO 2 PUFFS BY MOUTH EVERY 4 TO 6 HOURS NEEDED FOR SHORTNES S OF BREATH OR WHEEZING . TAKE PRIOR TO EXERCISE active Not Available Not Available No t Available fluticaso ne propionat e 50 mcg/actua tion nasal spray,sayda pension SHAKE LIQUID AND USE 1 SPRAY IN EACH NOSTRIL EVERY 12 HOURS active Not Available Not Available No t Available dicyclomi ne 10 mg capsule TAKE 1 CAPSULE BY MOUTH THREE TIMES DAILY 04/27 completed Not Available Not Available Not Available amoxicill in 875 mg-potass ium clavulana te 125 mg tablet TAKE 1 TABLET BY MOUTH EVERY 12 HOURS 01/16 completed Not Available Not Available Not Available Benadryl 25 mg capsule take 2 capsule by oral route every 4 - 6 hours as needed 06/12 completed Prescrib ed Elsewher e: Yes Loca tion: [facility] odify By: lauren ennis DateTime : 05/11/20 15 02:15:00 PM Not Available Not Available Not Available NuvaRing 0.12 mg-0.015 mg/24 hr vaginal insert 1 vaginal ring by vaginal route every month leave in place for 3 weeks, remove for 1 week 05/03 completed Prescrib ed Elsewher e: No Locat ion: [facility] odify By: chantale grimaldo DateTime : 05/11/20 15 02:15:00 PM Not Available Not Available Not Available 10/20 (28) 1 mg-20 mcg (21)/75 mg (7) tablet take 1 tablet by oral route every day 07/10 completed Prescrib nicole Bowling e: No Locat ion: [facility] odify By: jesusita trinh DateTime : 06/12/20 17 03:45:00 PM Not Available Not Available Not Available nitrofura ntoin monohydra te/macroc rystals 100 mg capsule TAKE 1 CAPSULE BY MOUTH EVERY 12 HOURS FOR 5 DAYS 02/02 completed Not Available Not Available Not Available Vitamin 08/03 completed Not Available Not Available Not Available Vitals Date Recorded Body height Body mass index (BMI) Body weight Systolic blood pressure Diastolic blood pressure Provider Name and Address Organization Details Last Updated DateTime 10/17/2024 152.4 cm 35 kg/m2 52857.03 g 147 mm[Hg] 92 mm[Hg] MELL Martha [facility] 5 14:06:12 Date Recorded Body height Body mass index (BMI) Body weight Systolic blood pressure Diastolic blood pressure Provider Name and Address Organization Details Last Updated DateTime 10/27/2024 152.4 cm 34.7 kg/m2 19975.72 g 136 mm[Hg] 91 mm[Hg] Darcie Cabrera [facility] 5 16:18:14 Date Recorded Body height Body mass index (BMI) Body weight Systolic blood pressure Diastolic blood pressure Provider Name and Address Organization Details Last Updated DateTime 11/21/2024 152.4 cm 34 kg/m2 99520.07 g 157 mm[Hg] 99 mm[Hg] Jennifer Spence [facility] 5 18:53:28 Date Recorded Body height Body mass index (BMI) Body weight Systolic blood pressure Diastolic blood pressure Provider Name and Address Organization Details Last Updated DateTime 12/19/2024 152.4 cm 34.3 kg/m2 31327.82 g 136 mm[Hg] 95 mm[Hg] Darcie Cabrera [facility] 5 14:48:15 Date Recorded Body height Body mass index (BMI) Body weight Systolic blood pressure Diastolic blood pressure Provider Name and Address Organization Details Last Updated DateTime 01/16/2025 152.4 cm 33.9 kg/m2 49824.35 g 143 mm[Hg] 89 mm[Hg] Sarah Seay [facility] 5 14:29:27 Social History Question Answer Notes LastModified by Organizat ion Details LastModified Time Tobacco Smoking Status Unknown If Ever Smoked Sandee Sanon ghazala, [facility] 09/11/2023 14:30:42 What Is Your Level Of Alcohol Consumption? None [email or web address] Information not available 02/04/2024 If You Are , What Was Your Level Of Alcohol Consumption Prior To ? Occasional [email or web address] Information not available 09/11/2023 Are You Blind Or Do You Have Difficulty Seeing? No Information not available 02/02/2023 What Is Your Level Of Caffeine Consumption? Occasional Information not available 02/02/2023 How Much Tobacco Do You Chew? None Information not available 02/02/2023 In The 14 Days Before Symptom Onset, Have You Had Close Contact With A Laboratory-confir med COVID-19 While That Case Was Ill? No Information not available 02/02/2023 In The 14 Days Before Symptom Onset, Have You Had Close Contact With A Person Who Is Under Investigation For COVID-19 While That Person Was Ill? No Information not available 02/02/2023 Have You Been To An Area Known To Be High Risk For COVID-19? No Information not available 02/02/2023 Are You Deaf Or Do You Have Serious Difficulty Hearing? No Information not available 02/02/2023 What Type Of Diet Are You Following? REGULAR [email or web address] Information not available 06/22/2023 What Is The Highest Grade Or Level Of School You Have Completed Or The Highest Degree You Have Received? 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 Yes Information not available 02/02/2023 Do You Use Protection During Sex? No Information not available 02/02/2023 Do You Use Your Seat Belt Or Car Seat Routinely? Yes Information not available 02/02/2023 Do You Have Smoke And Carbon Monoxide Detectors In Your Home? Yes Information not available 02/02/2023 How Much Tobacco Do You Smoke? No Information not available 02/02/2023 Do You Feel Stressed (tense, Restless, Nervous, Or Anxious, Or Unable To Sleep At Night)? [id number] Information not available 02/02/2023 Do You Use Any Illicit Or Recreational Drugs? No Information not available 05/25/2023 Do You Use Sunscreen Routinely? Yes Information not available 02/02/2023 Has Tobacco Cessation Counseling Been Provided? No [email or web address] Information not available 09/11/2023 Have You Used IV Drugs? No Information not available 02/02/2023 Do You Or Have You Ever Used Any Other Forms Of Tobacco Or Nicotine? No [email or web address] Information not available 09/11/2023 Sex: Unknown Functional Status Question Answer Note LastModified by Organizat ion Details LastModified Time Do you have difficulty walking or climbing stairs? No Information not available 09/11/2023 Are you able to walk? YESWOREST Information not available 02/02/2023 Are you able to care for yourself? Yes [email or web address] Information not available 09/11/2023 Do you have difficulty dressing or bathing? No Information not available 09/11/2023 What is your exercise level? Occasional Information not available 02/02/2023 Mental Status None recorded. Family History Relationship Description Onset Age of this Age Resolved Age Notes LastModified by Organization Details LastModified Time Unspecified Relation Family history unknown Not available 09/11 14:43:46 Unspecified Relation Family history unknown [email or web address] Not available 11/09 10:30:57 Medical History Condition Response Allergies (Food, seasonal, environmental ) Y Other N Breast Cancer N Drug/Latex Allergies/Reactions N Blood Transfusion N Dermatologic Disorders N Lung Disease N Defects or Inherited Disease N Breast Problem N Gestational Diabetes N Hematologic disorders N Anesthesia Complications N History of STI N Deep Vein Thrombosis N Polycystic ovary syndrome N Anxiety Disorder N Autoimmune disease N Arthritis N Infertility N Polyps N Acid Reflux (GERD) Y History of abnormal pap N Cancer N Stroke N Varicosities N Neurologic/Epilepsy N Endometriosis N High Cholesterol N Headaches Y Fibromyalgia N Kidney Disease N Heart Problems N Kidney or Bladder Problems N Thyroid Problems N GI Problems N Eating Disorder N Anemia N Art (IVF or FET) N Psychiatric Illness N Ovarian Cancer N Diabetes N Pulmonary (TB, Asthma) N Hepatitis/Liver Disease N No Past Medical History N Eczema N Urinary Tract Infection N Abuse/Domestic Violence N Asthma Y Trauma/Violence N Depression/ depression N Heart Disease N Pre-Eclampsia N Hypertension N Osteoporosis N Thrombophilias N Gynecological History Statement/Question Response Flow Moderate Date of Last Mammogram Date of LMP 10/27/2024 N On BCP's at Conception? N STIs/STDs N Was last menstrual period normal Y HPV Vaccine N Duration of Flow (days) 5 Current Control Method IUD Age at First Child 22 Are cycles usually normal Y Frequency of Cycle (Q days) 27 Sexually Active? Y Menses Monthly Y Date of DEXA bone scan Age of first menstrual cycle 12 Date of Last Pap Smear 04/18/2024 Sexual Problems? N LMP Approximate Desired Control Method N Obstetrics History GPAL:G 1 P 1 0 0 1 Type Value Full Term 1 Living 1 Total 1 Past Encounters Encounter ID Performer Location Encounter Start Date Encounter Closed Date Diagnosis/Indication Diagnosis SNOMED-CT Code Diagnosis ICD10 Code Diagnosis Note [id number] Rachelle Hayden [facility] [address] [address] 02/02/2023 14:23:58 02/02/2023 15:24:12 screening 512281657 Z36.82 [id number] Jerrod Mckeon MD [facility] [address] [address] 02/02/2023 14:25:47 02/02/2023 16:14:55 Nausea and vomiting 51995858 R11.2 Routine an tenatal care 931083627 Z34.01 [id number] [facility] [address],[place] [address] 03/02/2023 13:53:04 03/02/2023 14:35:32 [id number] Jerrod Mckeon MD [facility] [address],[place] [address] 03/02/2023 13:53:43 03/02/2023 15:02:00 screening 861368779 Z36.89 Routine an tenatal care 811793609 Z34.01 [id number] [facility] [address],[place] [address] 03/19/2023 16:53:53 03/20/2023 14:15:15 Abdominal pain in 963932978 O99.891 Z3A.18 [id number] Danialiliya Dinh [facility] [address],[place] [address] 03/29/2023 13:47:52 03/29/2023 16:12:27 screening 011674220 Z36.3 [id number] Jerrod Mckeon MD [facility] [address],[place] [address] 03/29/2023 13:48:36 03/29/2023 15:41:29 Routine care 955813805 Z34.01 [id number] [facility] [address],[place] [address] 04/27/2023 13:56:15 04/27/2023 14:56:31 screening 483607170 Z36.2 [id number] Jerrod Mckeon MD [facility] [address],[place] [address] 04/27/2023 14:01:55 04/27/2023 15:22:38 Routine care 132050032 Z34.01 [id number] Jerrod Mckeon MD [facility] [address],[place] [address] 05/25/2023 14:04:08 05/25/2023 15:20:52 Routine care 020301203 Z34.01 [id number] Maritza Buckley [facility] [address],[place] [address] 06/08/2023 15:41:25 06/08/2023 16:00:32 Routine care 410948018 Z34.93 [id number] Dania Dinh [facility] [address],[place] [address] 06/22/2023 13:38:50 06/22/2023 16:58:47 Cyst of ovary in 9352848758 6330001 O34.80 Z3A.32 [id number] Maritza Buckley [facility] [address],[place] [address] 06/22/2023 13:39:13 06/22/2023 15:15:22 Routine care 206802918 Z34.93 [id number] Jerrod Mckeon MD [facility] [address],[place] [address] 07/06/2023 14:19:46 07/06/2023 14:48:53 Routine care 657047703 Z34.01 [id number] Jerrod Mckeon MD [facility] [address],[place] [address] 07/13/2023 15:10:57 07/13/2023 16:19:02 -induced hypertension 97084543 O13.9 [id number] [facility] [address],[place] [address] 07/13/2023 16:19:28 07/13/2023 16:54:38 -induced hypertension 67940722 O13.9 [id number] [facility] [address],[place] [address] 07/17/2023 10:29:36 07/17/2023 11:35:14 -induced hypertension 89800419 O13.9 [id number] [facility] [address],[place] [address] 07/20/2023 15:56:27 07/20/2023 16:35:50 -induced hypertension 23360175 O13.9 [id number] MT VILLAREAL MD [facility] [address],[place] [address] 07/20/2023 15:56:50 07/22/2023 16:04:11 -induced hypertension 57538209 O13.9 Gestation period, 36 weeks 15289034 Z3A.36 [id number] Wanda Wade [facility] [address],[place] [address] 07/24/2023 10:22:40 07/24/2023 11:32:01 -induced hypertension 11458754 O13.9 [id number] MT VILLAREAL MD [facility] [address],[place] [address] 08/03/2023 15:57:08 08/03/2023 16:41:14 -induced hypertension 89633942 O13.5 - BP 150/108, 145/106- patient reports intermitte nt headaches, self resolving; no other symptoms concerning for preeclamps ia- start labetalol 200 BID, patient to take BP at least 2x per day at home- will call next week to check BP log [id number] Joy Goldstein [facility] [address],[place] [address] 08/28/2023 14:07:48 08/28/2023 15:04:12 care 908628601 Z39.2 this patient is a 22-year-ol d female presents for care. She is bottle feeding, her bleeding is very light, she is not had intercours e, she is going to have the Mirena IUD. She is well and her baby is doing very well. She will follow-up in 2 weeks for Mirena IUD insertion and in 2-3 months for well-woman exam. [id number] Jerrod Mckeon MD [facility] [address],[place] [address] 09/11/2023 14:30:27 09/11/2023 17:23:20 Screening procedure 04915599 Z13.9 Venereal d isease screening 769584653 Z11.3 Insertion of intrauterine contraceptive device 65246455 Z30.430 IUD was inserted without complicati ons. She tolerated it well. [facility] 928142840 Z30.9 [id number] [facility] [address] [address] 10/19/2023 12:56:55 10/19/2023 13:18:44 IUD check 227593362 Z30.431 Patient is here for 4-6wk IUD string check. She denies complicati ons, pain, or unpleasant side effects. Happy with this control method. Wishes to continue. Time spent in visit is a total of 15 mins with at least 50% of visit consisting of counseling and review of plan of care. [id number] Rachelle Hayden [facility] [address],[place] [address] 11/09/2023 10:29:25 11/09/2023 13:33:59 Cyst of right ovary 4200526980 6211027 N83.201 [id number] Jerrod Mckeon MD [facility] [address],[place] [address] 11/16/2023 14:20:59 11/20/2023 08:48:48 Dermoid cyst 695903504 K09.8 This patient is a 23-year-ol d female with a 5 cm dermoid cyst. We agreed today to move forward with the resection of the dermoid cyst. She also has a cyst on her contralate ral ovary. She will have bilateral laparoscop ic ovarian cystectomy . I explained the procedure to the patient in detail. She understand s the risk. She understand s the procedure as it was explained in detail. Spent over 40 minutes face-to-fa ce. More than 50% was counseling . The patient understand s the procedure. The procedure was described to the patient in great detail. the patient also understand s the risks. The risks were also explained in detail. She understand s that injuries May occur during surgery. She understand s these injuries can result in hospitaliz ation, more surgery, and severe illness. She understand s there is risk of hemorrhage and infection. This patient is a 23-year-ol d female with bilateral ovarian cyst. One cyst was a dermoid. We have agreed to perform laparoscop ic bilateral ovarian cystectomy . She understand s risks, benefits, and alternativ es. She is completed the informed consent process and is ready to proceed. [id number] Jerrod Mckeon MD [facility] [address],[place] [address] 01/08/2024 09:54:57 01/10/2024 11:08:50 Endometriosis of pelvis 09677321 N80.9 23-year-ol d female who presents for postop follow-up. She had a diagnostic laparoscop y. There was [place] endometrio sis. We discussed adjunct treatment options. We agreed to proceed with Lupron and norethindr one. To follow up in 1 month. She is recovering well from the surgery. She states that her pain is much improved. [id number] Jerrod Mckeon MD [facility] [address],[place] [address] 02/04/2024 09:46:28 02/05/2024 10:02:18 Endometriosis of pelvis [id number] N80.9 23-year-ol d female who presents for one-month follow-up after Lupron injection. She never got her Lupron injection. We are trying to get that completed through her insurance. They will be no charge for today's visit. She will follow-up in 1 month after Lupron. [id number] Jennifer Spence [facility] [address],[place] [address] 02/15/2024 13:41:07 02/15/2024 17:00:36 Endometriosis of pelvis 11762109 N80.9 [id number] [facility] [address],[place] [address] 03/14/2024 13:43:46 03/14/2024 14:28:45 Endometriosis of pelvis 43484326 N80.9 [id number] Vickie Mares [facility] [address],[place] [address] 04/11/2024 13:54:00 04/11/2024 14:29:26 Endometriosis of pelvis 62116620 N80.9 [id number] Jerrod Mckeon MD [facility] [address],[place] [address] 04/18/2024 14:57:36 04/18/2024 15:31:09 Gynecologic examination 13560335 Z01.419 Annual gynecologi nima exam performed. Patient will come back in a year unless there are new symptoms. Suggest Calcium with Vitamin D if not eating in diet. Patient advised to get annual flu shot. Recommend yearly physicals and preform monthly breast exams. Genetic testing is available for patients with family history of cancer. Engage in safe sexual practices, use condoms. Encouraged to have daily exercise. Avoid tobacco and illicit drugs, moderation of alcohol. If BMI greater than 25 dietary consult advised. If you have any questions please call or email. Pap smear- [id number] [facility] [address],[place] [address] 05/23/2024 13:57:45 05/23/2024 14:27:46 Endometriosis of pelvis 23096730 N80.9 [id number] [place] [address],[place] [address] 06/20/2024 13:51:04 06/20/2024 14:03:26 Endometriosis of pelvis 57156819 N80.9 [id number] [place] [address],[place] [address] 07/18/2024 13:55:35 07/18/2024 14:13:56 Endometriosis of pelvis 11799601 N80.9 [id number] [place] [address] [place] [address] 09/12/2024 13:50:12 09/12/2024 14:36:45 Endometriosis of pelvis 60040549 N80.9 23-year-ol d female, with a history of endometrio sis and laparoscop ic remediatio n, presents for follow-up on Lupron treatment. She is doing well on Lupron. Her pain is very minimal. She also had questions about her serum hormone binding globulin. We discussed the significan ce of a low serum hormone binding globulin. We recognize the disueases associated with low hormone binding globulin. The patient was informed that it is not a causal relationsh ip. We agreed to follow-up the end of her Lupron treatment. She will return if her pain recurs. She will follow up for other gynecologi c isses well. [id number] MELL Thomas [facility] [address],[place] [address] 10/17/2024 13:36:31 10/17/2024 14:09:28 Abnormal uterine bleeding [id number] 9100 N93.9 [id number] Jerrod Mckeon MD [facility] [address],[place] [address] 10/27/2024 16:09:12 10/27/2024 17:03:33 Urinary symptoms 938281582 R39.9 Urinary tr act infectious disease 91012375 N39.0 Vulvovaginitis 10837116 N76.0 this patient is a 24-year-ol d female presents for vulvar irritation and dysuria. Patient has blood in her urine today. This was seen on a urine dip. It is microscopi c. Patient also has vulvar irritation and white vaginal discharge. She offered treatment for urinary tract infection and vulvovagin itis. We agreed to go ahead and treat. She was given antifungal pill for vulvovagin itis. She was prescribed antibiotic s for urinary tract infection. On both medication s she was given precaution s and instructio ns. We talked about risks, benefits, and alternativ es medication . Spent over 20 minutes on her care in total. Including documentat ion [facility] chart review.. [id number] Jennifer Spence [facility] [address],[place] [address] 11/21/2024 10:53:25 11/24/2024 07:50:24 Endometriosis of pelvis 17043126 N80.9 [id number] [facility] [address],[place] [address] 12/19/2024 13:32:19 12/19/2024 14:49:21 Endometriosis of pelvis 61264729 N80.9 [id number] [facility] [address],[place] [address] 01/16/2025 13:49:35 01/16/2025 14:50:30 Endometriosis (clinical) 885860993 N80.9 Health Concerns Section Related Observation LastModified by Organization Detai ls LastModified Time None Recorded Concern Status LastModified by Organization Details LastModified Time None Recorded Advance Directives Directive None Recorded Payers Encounter Date Sequence Insurance Name Policy Number Policy Smalls Covered Member ID Smalls Member ID Guarantor Name 10/17/2024 1 [facility] - [employer] [facility] (PPO) [id number] Oliviafariba Blackburn [id number] Olivia Blackburn 10/27/2024 1 [facility] - [employer] - [employer] (PPO) [id number] Oliviafariba Blackburn [id number] Olivia Blackburn 11/21/2024 1 [facility] - [employer] - [employer] (PPO) [id number] Olivia Blackburn [id number] Olivia Blackburn 12/19/2024 1 [facility] - [employer] - [employer] (PPO) [id number] Olivia Blackburn [id number] Olivia Blackburn 01/16/2025 1 [facility] - [employer] - [employer] (PPO) [id number] Olivia Demetrius Blackburn [id number] Oliviafariba Blackburn Notes Date Note Type Note Provider Name and Address Organization Details Recorded Time 10/27/2024 text/html this patient is a 24-year-old female presents for vulvar irritation and dysuria. Patient has blood in her urine today. This was seen on a urine dip. It is microscopic. Patient also has vulvar irritation and white vaginal discharge. She offered treatment for urinary tract infection and vulvovaginitis. We agreed to go ahead and treat. She was given antifungal pill for vulvovaginitis. She was prescribed antibiotics for urinary tract infection. On both medications she was given precautions and instructions. We talked about risks, benefits, and alternatives medication. Spent over 20 minutes on her care in total. Including documentation anf chart review.. Jerrod Mckeon MD [address], [place], [address], [facility] 10/27/2024 17:01:20 OBGyn Episode Ob Episode Information Episode Created Date Number of Fetuses Patient Bloodtype Patient rh Status Prepregnancy Weight lbs Domestic Partner Domestic Partner Phone Father Name Apartment Maintenance Manager Status 02/03/20 23 1 O Positive CLOSED Fetus Data First Name Last Name Admitted to NICU Weight (g) Sex Living Outcome Pediatric Complications Fetus ID Race Codes Race Delivery Type 2721.55 2 F true Full Term [id number] Vaginal Delivery Problems Problem Notes failed 1hr Problem Name Start Date End Date Resolution Snomed Code Not e -induced hypertension [id number] Weekly NSTs wit h blood pressure checks Anemia 05/28/2023 MEDICATION [id number] 1 tab sl ow fe Complex ovarian cyst [id number] 103 internal excrescences/ debris with no blood flow, possible dermoid tumor Surendra Calculation Initial Surendra Date Initial Exam Date Initial Exam Provider Initial Ultrasound Date Last Menstrual Period Date Ultra Sound Weeks Gestation 08/16/2023 02/02/2023 01/04/2023 11/09/2022 7 Eighteen To Twenty Week Surendra Update Ultra Sound Date Fundal Height At Umbil Quickening Date Ultra Sound Latest Weeks Gestation Final Surendra Confirmed By Final Surendra Confirmed Date Final Surendra Date Ultra Sound Latest Days Gestation 0 [email or web address] 02/02/2023 08/16/20 23 0 Pre- Flowsheet Flowsheet Date 02/02/2023 Anderson Score Blood Edema Fundus Height Fundus Units Glucose Ketones Leukocytes Nitrite Labor Signs Protein Cervic Dilation Cervic Effacement Cervic Station Type Weight in lbs Pre/Post Dialysis Refused BP Diastolic BP Location Tested BP Systolic BP Type Fetus Heart Rate Present Fetus Movement Comments Flowsheet Date 02/02/2023 Anderson Score Blood Edema Fundus Height Fundus Units Glucose Ketones Leukocytes Nitrite Labor Signs Protein Cervic Dilation Cervic Effacement Cervic Station Type Weight in lbs Pre/Post Dialysis Refused Weight 141.349534075600 BP Diastolic BP Location Tested BP Systolic BP Type 89 R arm 140 sitting 87 L arm 135 sitting Fetus Heart Rate Present Fetus Movement Comments This patient is a 22-year-ol d 1 at 12 weeks gestation who presents for initial care. She has an unremarkable medical, surgical, obstetric history. She was infected with COVID. She was given information about vaccinations. Talked about care in detail. She will begin routine care. Flowsheet Date 03/02/2023 Anderson Score Blood Edema Fundus Height Fundus Units Glucose Ketones Leukocytes Nitrite Labor Signs Protein Cervic Dilation Cervic Effacement Cervic Station Type Weight in lbs Pre/Post Dialysis Refused BP Diastolic BP Location Tested BP Systolic BP Type Fetus Heart Rate Present Fetus Movement Comments Flowsheet Date 03/02/2023 Anderson Score Blood Edema Fundus Height Fundus Units Glucose Ketones Leukocytes Nitrite Labor Signs Protein Cervic Dilation Cervic Effacement Cervic Station 16 none trace Type Weight in lbs Pre/Post Dialysis Refused Weight 145.7597347028 BP Diastolic BP Location Tested BP Systolic BP Type 80 R arm 132 sitting Fetus Heart Rate Present A 145 Fetus Movement Comments no complaints, improved naus ea with medication, we discussed ovarian cyst with internal debris / tissue, excrescence possibly. No blood flow to it. Reviewed the images together. She will return in 4 weeks for anatomy scan. She is getting alpha fetoprotein today. Flowsheet Date 03/19/2023 Anderson Score Blood Edema Fundus Height Fundus Units Glucose Ketones Leukocytes Nitrite Labor Signs Protein Cervic Dilation Cervic Effacement Cervic Station Type Weight in lbs Pre/Post Dialysis Refused BP Diastolic BP Location Tested BP Systolic BP Type Fetus Heart Rate Present Fetus Movement Comments Flowsheet Date 03/29/2023 Anderson Score Blood Edema Fundus Height Fundus Units Glucose Ketones Leukocytes Nitrite Labor Signs Protein Cervic Dilation Cervic Effacement Cervic Station Type Weight in lbs Pre/Post Dialysis Refused BP Diastolic BP Location Tested BP Systolic BP Type Fetus Heart Rate Present Fetus Movement Comments Flowsheet Date 03/29/2023 Anderson Score Blood Edema Fundus Height Fundus Units Glucose Ketones Leukocytes Nitrite Labor Signs Protein Cervic Dilation Cervic Effacement Cervic Station 20 none trace Type Weight in lbs Pre/Post Dialysis Refused Weight 149.201779817271 BP Diastolic BP Location Tested BP Systolic BP Type 78 R arm 134 sitting Fetus Heart Rate Present A 155 Fetus Movement A No Comments no complaints, no problems, complex cysts may be smaller today. Anatomy was incomplete, repeat 4 weeks. No pelvic pain associated with cyst this time Flowsheet Date 04/27/2023 Anderson Score Blood Edema Fundus Height Fundus Units Glucose Ketones Leukocytes Nitrite Labor Signs Protein Cervic Dilation Cervic Effacement Cervic Station Type Weight in lbs Pre/Post Dialysis Refused BP Diastolic BP Location Tested BP Systolic BP Type Fetus Heart Rate Present Fetus Movement Comments Flowsheet Date 04/27/2023 Anderson Score Blood Edema Fundus Height Fundus Units Glucose Ketones Leukocytes Nitrite Labor Signs Protein Cervic Dilation Cervic Effacement Cervic Station 24 none neg Type Weight in lbs Pre/Post Dialysis Refused Weight 156.683111198912 BP Diastolic BP Location Tested BP Systolic BP Type 90 R arm 146 sitting Fetus Heart Rate Present A 145 Fetus Movement A Yes Comments no complaints, no problems, routine care. Flowsheet Date 05/25/2023 Anderson Score Blood Edema Fundus Height Fundus Units Glucose Ketones Leukocytes Nitrite Labor Signs Protein Cervic Dilation Cervic Effacement Cervic Station 29 Type Weight in lbs Pre/Post Dialysis Refused Weight 163.354383734450 BP Diastolic BP Location Tested BP Systolic BP Type 83 R arm 136 sitting Fetus Heart Rate Present A 145 Fetus Movement A Yes Comments no complaints, no problems, routine care, GTT today Flowsheet Date 06/08/2023 Anderson Score Blood Edema Fundus Height Fundus Units Glucose Ketones Leukocytes Nitrite Labor Signs Protein Cervic Dilation Cervic Effacement Cervic Station 28 Type Weight in lbs Pre/Post Dialysis Refused Weight 164.41472017527 BP Diastolic BP Location Tested BP Systolic BP Type 89 L arm 127 sitting Fetus Heart Rate Present A 150 Present Fetus Movement Comments doing well, ok for tdap and flu, pt unsure, precautions reviewed growth us scheduled. +FM f/u 2 weeks Flowsheet Date 06/22/2023 Anderson Score Blood Edema Fundus Height Fundus Units Glucose Ketones Leukocytes Nitrite Labor Signs Protein Cervic Dilation Cervic Effacement Cervic Station Type Weight in lbs Pre/Post Dialysis Refused BP Diastolic BP Location Tested BP Systolic BP Type Fetus Heart Rate Present Fetus Movement Comments Flowsheet Date 06/22/2023 Anderson Score Blood Edema Fundus Height Fundus Units Glucose Ketones Leukocytes Nitrite Labor Signs Protein Cervic Dilation Cervic Effacement Cervic Station neg none none trace Type Weight in lbs Pre/Post Dialysis Refused Weight 171.491891725766 BP Diastolic BP Location Tested BP Systolic BP Type 99 147 100 150 84 148 Fetus Heart Rate Present Fetus Movement A Yes Comments denies headache, visual pichardo ges, epigastric pain, pih precautions, bpp 8/ efw 28% complex cyst size stable, call for preadmission, rec flu vaccine f/u 2 weeks or pending pih labs Flowsheet Date 07/06/2023 Anderson Score Blood Edema Fundus Height Fundus Units Glucose Ketones Leukocytes Nitrite Labor Signs Protein Cervic Dilation Cervic Effacement Cervic Station 33 Type Weight in lbs Pre/Post Dialysis Refused Weight 180.436690197769 BP Diastolic BP Location Tested BP Systolic BP Type 92 L arm 130 sitting Fetus Heart Rate Present A 145 Fetus Movement A Yes Comments complaints, no problems, rou jenn care, elevated blood pressures last visit, to return each week for blood pressure checks. Flowsheet Date 07/13/2023 Anderson Score Blood Edema Fundus Height Fundus Units Glucose Ketones Leukocytes Nitrite Labor Signs Protein Cervic Dilation Cervic Effacement Cervic Station none trace Type Weight in lbs Pre/Post Dialysis Refused Weight 178.763629006733 BP Diastolic BP Location Tested BP Systolic BP Type 97 R arm 146 sitting 98 R arm 146 sitting Fetus Heart Rate Present A 145 Fetus Movement A Yes Comments gestational hypertension chase gnosed, to start biweekly NSTs with blood pressure checks, given precautions on preeclampsia, she is going to check some blood pressures at home. No swelling now, no headaches, blurred vision, epigastric Flowsheet Date 07/13/2023 Anderson Score Blood Edema Fundus Height Fundus Units Glucose Ketones Leukocytes Nitrite Labor Signs Protein Cervic Dilation Cervic Effacement Cervic Station Type Weight in lbs Pre/Post Dialysis Refused BP Diastolic BP Location Tested BP Systolic BP Type Fetus Heart Rate Present Fetus Movement Comments Flowsheet Date 07/17/2023 Anderson Score Blood Edema Fundus Height Fundus Units Glucose Ketones Leukocytes Nitrite Labor Signs Protein Cervic Dilation Cervic Effacement Cervic Station Type Weight in lbs Pre/Post Dialysis Refused Weight 182.436037559745 BP Diastolic BP Location Tested BP Systolic BP Type 99 154 108 156 Fetus Heart Rate Present Fetus Movement Comments Pt here for NST. BP's elevat ed. Pt denies [place], visual disturbances, epigastric pain, and generalized edema. BP's reviewed with Dr. Villareal. Pt to [facility] for BP monitoring and PIH labs with PCR per Dr. Villareal. Amber Rojas, RN Flowsheet Date 07/20/2023 Anderson Score Blood Edema Fundus Height Fundus Units Glucose Ketones Leukocytes Nitrite Labor Signs Protein Cervic Dilation Cervic Effacement Cervic Station Type Weight in lbs Pre/Post Dialysis Refused BP Diastolic BP Location Tested BP Systolic BP Type Fetus Heart Rate Present Fetus Movement Comments Flowsheet Date 07/20/2023 Anderson Score Blood Edema Fundus Height Fundus Units Glucose Ketones Leukocytes Nitrite Labor Signs Protein Cervic Dilation Cervic Effacement Cervic Station Type Weight in lbs Pre/Post Dialysis Refused Weight 182.410150926009 BP Diastolic BP Location Tested BP Systolic BP Type 104 143 Fetus Heart Rate Present A 135 Fetus Movement A Yes Comments Good movement. NO ctx, VB, LOF. No sx of preE. BP elevated again today, however labs wnl at [facility] earlier this week. Discussed diagnosis and implications of gestational HTN including progression to preeclampsia. Warning signs reviewed. Recommend induction at 37 weeks, sent to [facility] to schedule. Patient to take BP at home over the weekend, knows to present to hospital for BP >160/110. Flowsheet Date 07/24/2023 Anderson Score Blood Edema Fundus Height Fundus Units Glucose Ketones Leukocytes Nitrite Labor Signs Protein Cervic Dilation Cervic Effacement Cervic Station Type Weight in lbs Pre/Post Dialysis Refused BP Diastolic BP Location Tested BP Systolic BP Type 100 157 100 162 Fetus Heart Rate Present Fetus Movement Comments Pt here for NST. BP is eleva vania. Pt c/o dull headache but has not yet taken Tylenol. Pt denies visual disturbances, epigastric pain, and generalized edema. Pt instructed to report to L & D for BP monitoring, PIH labs, and PCR per Dr. Villareal. Pt verbalized understanding and report called to L & D RN. Amber Rojas RN Flowsheet Date 08/03/2023 Anderson Score Blood Edema Fundus Height Fundus Units Glucose Ketones Leukocytes Nitrite Labor Signs Protein Cervic Dilation Cervic Effacement Cervic Station Type Weight in lbs Pre/Post Dialysis Refused Weight 169.881633881640 BP Diastolic BP Location Tested BP Systolic BP Type 106 145 108 150 Fetus Heart Rate Present Fetus Movement Comments Menstrual History Last Menstrual Date Menses Monthly On Bcp Conception Prior Menses Frequency Hcg Plus Date Menarche Onset Age 0211/09/2022 Genetic Screening And Infection History Question Response Note Mental Retardation/Autism false Patient's Age Will Be 35 Years Or Older At Estim ated Date of Delivery false Thalassemia (Frisian, Khmer, Mediterranean, Or Background): MCV < 80 false Neural Tube Defect (Meningomyelocele, Spina Bifi da, Or Anencephaly) false Congenital Heart Defect false Down Syndrome false Lambert-Sachs (eg, Sikh, Cajun, Romanian-[place]) f alse Lolis Disease false Sickle Cell Disease Or Trait () false Hemophilia Or Other Blood Disorders false Muscular Dystrophy false Cystic Fibrosis false [place]'s Chorea false Intellectual Disability/Autism false If Yes, Was Person Tested For Fragile X? false Other Inherited Genetic Or Chromosomal Disorder false Maternal Metabolic Disorder (eg, Type 1 Diabetes , PKU) false Patient Or Baby's Father Had A Child With Defects Not Listed Above false Recurrent Loss, Or A Stillbirth false Medications (including Suppl ements, Vitamins, Herbs, OTC Drugs), Illicit/Recreational Drugs, Alcohol false If Yes, Agent(s) And Strength/Dosage false Any Other Genetic History false Live With Someone With TB Or Exposed To TB false Patient Or Partner Has History Of Genital Herpes false Rash Or Viral Illness Since Last Menstrual Perio d false History Of STD, Gonorrhea, Chlamydia, HPV, Syphi lis false Other Infection History false History of HIV false History of Hepatitis false Prior GBS-infected child false Hemoglobinopathy Or Carrier false Other Structural Defect false Recent Travel History Outside of Country false Delivery Information Delivery Date Delivery Type Labor Anesthesia Weeks Gestation Incision Type Labor Labor Length Hrs Delivered By Post Complications Tubal Sterilization Discharge Date Comments 3 Induce d Regional-Ep idural 37.2 false Jerrod Mckeon MD Anemia, Complex ovarian cyst, -induced hypertens ion Discharge Information Feeding Method Contraceptive Method Maternal HG B and HCT Levels
== END 2025-01-23 12:36 | disposition home or self-care (01) ==
PROVIDERS: PCP Nurse Practitioner Family; Visit Provider Internal Medicine
DX: O13.9 Gestational [pregnancy-induced] hypertension without significant proteinuria, unspecified trimester (principal); O99.280 Endocrine, nutritional and metabolic diseases complicating pregnancy, unspecified trimester; E03.9 Hypothyroidism, unspecified; Z3A.00 Weeks of gestation of pregnancy not specified
CPT/HCPCS: 76536

== ENCOUNTER 2025-02-13 09:02 | Outpatient (CLI) | payer OTHER, SELFPAY ==
--- OUTSIDE RECORDS SUMMARY | 2025-02-13 09:16 | XMS_ITS | Continuity of Care Document ---
Author Organization [facility] Address [address] [place] [address] Phone Care Team Providers Care Pest Control Pilot Name Role Phone Aguirre OD, Andre Unavailable Unavailable Procedures Procedure Date Eye Exam, New Patient Refraction Advance Directives Directive Yes / No Effective Date File Name No Information Encounters Encounter Description Practice Location Reason(s) For Visit Diagnoses Date Provider Providers Copied on Encounter [facility], [address], [place], [place], [id number], [place] tel:[phone] [facility] No Information [phone] Aguirre OD Andre. [address] , [address], [place], [address], [place]. tel:[phone] Family History Family Member Type Diagnosis Age At Onset No Information Payers Payer name Insurance type Covered alliance party ID Authoriza tion(s) Medicaid [facility] [id number] Social History Type Description Quantity Date Captured [...]
--- OUTSIDE RECORDS SUMMARY | 2025-02-13 09:16 | XMS_ITS | Data Portability ---
Author Organization [facility] Address [address] [place] [address] [place] [address] Care Team Providers Care Field Service Supervisor Name Role Phone HEAVENLY RUELAS Primary Care Provider [phone] Assessment No assessment recorded. Plan of Treatment Reminders Order Date Submit Date Provider Last Modified By Organization Details Last Modified Time Details Appointments INJECTION 2024 01:00P M RN SCHEDULE Not available Not available Not available Lab urinalysi s, dipstick 2024 [address]25 [address], [address], [place], [address], 10/27/2024 16:27:01 Referral None recorded. Procedures None recorded. Surgeries None recorded. Imaging None recorded. Medication Orders Lupron Depot 3.75 mg intramusc ular syringe kit [address] [facility], [address], [place], [place], [id number], 01/16/2025 14:39:24 Lupron Depot 3.75 mg intramusc ular syringe kit 2024 025 [email or web address], [address], [place], [place], [id number], 12/19/2024 14:47:38 Lupron Depot 3.75 mg intramusc ular syringe kit 2024 025 [email or web address] Not available 11/21/2024 18:53:12 Cipro 500 mg tablet 2024 025 [facility] #48850, [address], [place], [place], [id number], 01/16/2025 14:30:25 Diflucan 150 mg tablet 2024 025 [facility] #18203, [address], [place], [place], [id number], 10/27/2024 16:51:26 Lupron Depot 3.75 mg intramusc ular syringe kit 2024 025 [email or web address] Not available 10/17/2024 14:08:08 Patient TargetsNo targets [...] t Abnor mal: Yes Rachel ann Lab: [facility] [address] [facility] [address] Tel: CULTU RE ----- ----- ----- --- 10,00 0-25, 000 CFU/m l Strep tococ cus agala ctiae (Grou p B) (Abno rmal) Not Available [facility] (Lab) [address] [facility], [place], [address], 10/29/2024 12:27:38 10/27/19 25 10/27/2024 urina lysis , dipst ick Leukocytes trace Not Available Felecia simmons [address], [place], [address], 10/27/2024 16:26:00 10/27/19 25 10/27/2024 urina lysis , dipst ick Protein trace Not Available [facility] [address], [place], [address], 10/27/2024 16:26:00 10/27/19 25 10/27/2024 urina lysis , dipst ick pH 5 Not Available [facility] [address], [place], [address], 10/27/2024 16:26:00 10/27/19 25 10/27/2024 urina lysis , dipst ick Blood +++ Not Available [facility] [address], [place], [address], 10/27/2024 16:26:00 10/27/19 25 10/27/2024 urina lysis , dipst ick Specific [place] 1.015 Not Available [facility] olman [address], [place], [address], 10/27/2024 16:26:00 10/27/19 25 10/27/2024 urina lysis , dipst ick Bilirubin trace Not Available [facility] ramon [address], [place], [address], 10/27/2024 16:26:00 10/27/19 25 10/27/2024 urina lysis , dipst ick Appearance cloudy Not Available [facility] [address], [place], [address], 10/27/2024 16:26:00 10/27/19 25 10/27/2024 urina lysis , dipst ick Color dark yellow Not Available [facility] [address], [place], [address], 10/27/2024 16:26:00 Result Notes None recorded. Problems Name Problem SNOMED Code Status Onset Date Resolution Date Notes Provider Name and Address Organization Details Recorded Time Pregnanc y 38501501 Completed 202208/06/2023 Jovany Cruz [facility] 3 12:59:12 Complex ovarian cyst 32175114032 3 Completed internal excresce nces/ debris with no blood flow, possible dermoid tumor Jovany Cruz [facility] 3 12:59:08 Anemia 547824822 Completed 2022 1 [facility] 12:59:08 Pregnanc y-induce d hyperten domingo 14234054 Completed Weekly NSTs with blood pressure checks [facility] 3 12:59:08 Problem Notes None recorded. Procedures Surgical History Date Name Laterality Status Provider Name and Address Organization Details Recorded Time 04/18/20 24 Date of Last Pap Smear completed Darcie Cabrera [facility] 09/12/2024 14:17:06 01/02/20 24 LAPAROSCOPIC OVARIAN CYSTECTOMY (SURG) completed Jennifer Spence [facility] 01/02/2024 21:01:19 09/11/20 23 IUD Insertion completed Jerrod Mckeon MD [address], [place], [address], [facility] 09/11/2023 17:19:30 Imaging Results None recorded. Procedure Notes None recorded. Medical Equipment None Reported. Allergies Allergen ID Allergen Name Allergen Category Reaction Reaction Severity Criticality Documentation Date Start Date Code Code System Note Provider Name and Address Organization Details Recorded Time banana extract food,medi cation Not available Not available Not available 02/02/2023 09517 9 RxNorm Joy Angelita [facility] 3 14:44:47 Medications Name Sig Start [...] (SUPPLIE D BY PROVIDER OFFICE ) LOT [id number] EXP AUG 2025 AND NEEDS REMOVED BY [...] ed Elsewher e: Yes Loca tion: [facility]erm[facility] odify By: lauren ennis DateTime : 05/11/20 15 02:15:00 PM Not Available Not Available Not Available NuvaRing 0.12 mg-0.015 mg/24 hr vaginal insert 1 vaginal ring by vaginal route every month leave in place for 3 weeks, remove for 1 week 05/03 completed Prescrib ed Elsewher e: No Locat ion: Jermaine navarro [facility] odify By: chantale grimaldo DateTime : 05/11/20 15 02:15:00 PM Not Available Not Available Not Available 10/20 (28) 1 mg-20 mcg (21)/75 mg (7) tablet take 1 tablet by oral route every day 07/10 completed Prescrib nicole Bowling e: No Locat ion: Jermaine ramon [facility] odify By: jesusita trinh DateTime : 06/12/20 [...] Updated DateTime 10/17/2024 152.4 cm 35 kg/m2 75754.03 g 147 mm[Hg] 92 mm[Hg] MELL Thomas [facility] 5 14:06:12 Date Recorded Body height Body mass index (BMI) Body weight Systolic blood pressure Diastolic blood pressure Provider Name and Address Organization Details Last Updated DateTime 10/27/2024 152.4 cm 34.7 kg/m2 14985.72 g 136 mm[Hg] 91 mm[Hg] Darcie Cabrera [facility] 5 16:18:14 Date Recorded Body height Body mass index (BMI) Body weight Systolic blood pressure Diastolic blood pressure Provider Name and Address Organization Details Last Updated DateTime 11/21/2024 152.4 cm 34 kg/m2 89685.07 g 157 mm[Hg] 99 mm[Hg] Jennifer Spence [facility] 5 18:53:28 Date Recorded Body height Body mass index (BMI) Body weight Systolic blood pressure Diastolic blood pressure Provider Name and Address Organization Details Last Updated DateTime 12/19/2024 152.4 cm 34.3 kg/m2 84318.82 g 136 mm[Hg] 95 mm[Hg] Darcie Cabrera [facility] 5 14:48:15 Date Recorded Body height Body mass index (BMI) Body weight Systolic blood pressure Diastolic blood pressure Provider Name and Address Organization Details Last Updated DateTime 01/16/2025 152.4 cm 33.9 kg/m2 70150.35 g 143 mm[Hg] 89 mm[Hg] Sarah Seay [facility] 5 14:29:27 Social History Question Answer Notes LastModified by Organizat ion Details LastModified Time Tobacco Smoking Status Unknown If Ever Smoked Sandee Sanon ghazala, [facility] 09/11/2023 14:30:42 If You Are , What Was Your Level Of Alcohol Consumption Prior To ? Occasional [email or web address] Information not available 09/11/2023 Are You Blind [...] Type Of Diet Are You Following? REGULAR [email or web address] Information not available 06/22/2023 What Is The Highest Grade Or Level Of School You Have Completed Or The Highest Degree You Have Received? [id number] Information not available 02/02/2023 Are There Any [...] Information not available 02/02/2023 Do You Use Sunscreen Routinely? Yes Information not available 02/02/2023 Has Tobacco Cessation Counseling Been Provided? No [email or web address] Information not available 09/11/2023 Have You Used IV Drugs? No Information not available 02/02/2023 Do You Have Difficulty Walking Or Climbing Stairs? No Information not available 09/11/2023 Sex: Unknown Functional Status Question Answer Note LastModified by Organizat ion Details LastModified Time Do you use any illicit or recreational drugs? No Information not available 05/25/2023 Do you or have you ever used any other forms of tobacco or nicotine? No Information not available 09/11/2023 What is your level of alcohol consumption? None [email or web address] Information not available 02/04/2024 Are you able to walk? YESWOREST Information not available 02/02/2023 Are you able to care for yourself? 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 No [email or web address] Information not available 09/11/2023 What is your exercise level? Occasional Information not available 02/02/2023 Mental Status Question Answer Note LastModified by Organization D etails LastModified Time Do you feel stressed (tense, restless, nervous, or anxious, or unable to sleep at night)? [id number] Information not available 02/02/2023 Family History Relationship Description Onset Age of this Age Resolved Age Notes LastModified by Organization Details LastModified Time Unspecified Relation Family history unknown [email or web address] Not available 09/11 14:43:46 Unspecified Relation Family history unknown [email or web address] Not available 11/09 10:30:57 Medical History Condition [...] SNOMED-CT Code Diagnosis ICD10 Code Diagnosis Note [id number] Jerrod Mckeon MD [facility] [address] [address] 02/02/2023 14:23:58 02/02/2023 15:24:12 screening 046753019 Z36.82 [id number] MD Marquise York [address] [address] 02/02/2023 14:25:47 02/02/2023 16:14:55 Nausea and vomiting 13389852 R11.2 Routine an tenatal care 789711134 Z34.01 [id number] MD Marquise York [address],[place] [address] 03/02/2023 13:53:04 03/02/2023 14:35:32 [id number] MD Marquise York [address],[place] [address] 03/02/2023 13:53:43 03/02/2023 15:02:00 screening 224238234 Z36.89 Routine an tenatal care 145197921 Z34.01 [id number] MD Marquise York [address],[place] [address] 03/19/2023 16:53:53 03/20/2023 14:15:15 Abdominal pain in 740359610 O99.891 Z3A.18 [id number] MD Marquise York [address],[place] [address] 03/29/2023 13:47:52 03/29/2023 16:12:27 screening 073877565 Z36.3 [id number] MD Marquise York [address],[place] [address] 03/29/2023 13:48:36 03/29/2023 15:41:29 Routine care 082408269 Z34.01 [id number] MD Marquise York [address],[place] [address] 04/27/2023 13:56:15 04/27/2023 14:56:31 screening 665206854 Z36.2 [id number] MD Marquise York [address],[place] [address] 04/27/2023 14:01:55 04/27/2023 15:22:38 Routine care 057376247 Z34.01 [id number] MD Marquise York [address],[place] [address] 05/25/2023 14:04:08 05/25/2023 15:20:52 Routine care 345634746 Z34.01 [id number] Maritza [facility] [address],[place] [address] 06/08/2023 15:41:25 06/08/2023 16:00:32 Routine care 011812041 Z34.93 [id number] Jerrod Mckeon MD [facility] [address],[place] [address] 06/22/2023 13:38:50 06/22/2023 16:58:47 Cyst of ovary in 4207752024 3725461 O34.80 Z3A.32 [id number] Maritza [facility] [address],[place] [address] 06/22/2023 13:39:13 06/22/2023 15:15:22 Routine care 413146529 Z34.93 [id number] Jerrod Mckeon MD [facility] [address],[place] [address] 07/06/2023 14:19:46 07/06/2023 14:48:53 Routine care 103596107 Z34.01 [id number] Jerrod Mckeon MD [facility] [address],[place] [address] 07/13/2023 15:10:57 07/13/2023 16:19:02 -induced hypertension 23173836 O13.9 [id number] Jerrod Mckeon MD [facility] [address],[place] [address] 07/13/2023 16:19:28 07/13/2023 16:54:38 -induced hypertension 66057774 O13.9 [id number] MD Marquise York [address],[place] [address] 07/17/2023 10:29:36 07/17/2023 11:35:14 -induced hypertension 43032821 O13.9 [id number] MT LEGGETT MD [facility] [address],[place] [address] 07/20/2023 15:56:27 07/20/2023 16:35:50 -induced hypertension 77849773 O13.9 [id number] MT LEGGETT MD [facility] [address],[place] [address] 07/20/2023 15:56:50 07/22/2023 16:04:11 -induced hypertension 29751124 O13.9 Gestation period, 36 weeks 53278765 Z3A.36 [id number] MT LEGGETT MD [facility] [address],[place] [address] 07/24/2023 10:22:40 07/24/2023 11:32:01 -induced hypertension 03178801 O13.9 [id number] MT LEGGETT MD [facility] [address],[place] [address] 08/03/2023 15:57:08 08/03/2023 16:41:14 -induced hypertension 77506470 O13.5 - BP 150/108, 145/106- patient reports intermitte nt headaches, self resolving; no other symptoms concerning for preeclamps ia- start labetalol 200 BID, patient to take BP at least 2x per day at home- will call next week to check BP log [id number] Jerrod Mckeon MD [facility] [address],[place] [address] 08/28/2023 14:07:48 08/28/2023 15:04:12 care 347293663 Z39.2 this patient is a 22-year-ol d female presents for care. She is bottle feeding, her bleeding is very light, she is not had intercours e, she is going to have the Mirena IUD. She is well and her baby is doing very well. She will follow-up in 2 weeks for Mirena IUD insertion and in 2-3 months for well-woman exam. [id number] Jerrod Mckeon MD [facility] [address],[place] [address] 09/11/2023 14:30:27 09/11/2023 17:23:20 Screening procedure 20978883 Z13.9 Venereal d isease screening 875591794 Z11.3 Insertion of intrauterine contraceptive device 02561879 Z30.430 IUD was inserted without complicati ons. She tolerated it well. Contracept ion care management 126883699 Z30.9 [id number] Ivette Beauchamp [facility] [address],[facility] [place] [address] 10/19/2023 12:56:55 10/19/2023 13:18:44 IUD check 412529597 Z30.431 Patient is here for 4-6wk IUD string check. She denies complicati ons, pain, or unpleasant side effects. Happy with this control method. Wishes to continue. Time spent in visit is a total of 15 mins with at least 50% of visit consisting of counseling and review of plan of care. [id number] Jerrod Mckeon MD [facility] [address],[place] [address] 11/09/2023 10:29:25 11/09/2023 13:33:59 Cyst of right ovary 8020038567 1263939 N83.201 [id number] Jerrod Mckeon MD [facility] [address],[place] [address] 11/16/2023 14:20:59 11/20/2023 08:48:48 Dermoid cyst 151930074 K09.8 This patient is a 23-year-ol d [...] consent process and is ready to proceed. [id number] Jerrod Mckeon MD [facility] [address] [address] 01/08/2024 09:54:57 01/10/2024 11:08:50 Endometriosis of pelvis 81741493 N80.9 23-year-ol d female who presents for postop follow-up. She had a diagnostic laparoscop y. There was [place] endometrio sis. We discussed adjunct treatment options. We agreed to proceed with Lupron and norethindr one. To follow up in 1 month. She is recovering well from the surgery. She states that her pain is much improved. [id number]|2025-02-13 09:16:00|2025-02-13 09:16:00|XMS_ITS|PRINCE CHAPMAN|External Medical Summaries|[id number]|" Data Portability Created on: February 13, 2025 Alexey Olivia .[id number] : 2000 Sex: Female Author Organization [facility] Address [address] [place] [address] Assessment No assessment recorded. Plan of Treatment Reminders Order Date Submit Date Provider Last Modified By Organization Details Last Modified Time Details Appointments None leona dSilvia Lab pregnan cy test, urine 2022 023 [email or web address] [facility], [address] [place], [address], 3 13:56:42 bacteri al vaginos is + vaginit is panel, vaginal 2021 [facility], [address] [place], [address], 2 14:20:14 bacteri al vaginos is + vaginit is panel, vaginal 2021 [id number] [facility], [address] [place], [address], 3 03:39:02 pap, LB 2021 [employer] [facility], [address] [facility], [place], [address], 2 19:29:30 unliste d lab - Pap reflex hold 2021 [place] [email or web address] [facility], [address] [place], [address], 2 11:54:05 Referral primary care provide r referra l 2021 022 [email or web address] Not available 12:30:33 Procedures None recorde d. Surgeries None recorde d. Imaging US, obstetr ic, transva ginal 2022 023 [email or web address] Not available 14:16:11 Medication Orders metroni dazole 500 mg tablet [address] [facility], [address] , [place], [place], [address], 12:33:31 Patient TargetsNo targets recorded. Patient Instructions Encounter Date Encounter Id Patient Instructions Last Modified By Organization Details Last Modified Time 01/02/2022 [id number] Patient Health Questionnaire-2* [email or web address] Not available 02/14/2022 10:00:39 learning about dietary guidelines [email or web address] Not available 01/02/2022 15:01:10 eating healthy foods: care instructions [email or web address] Not available 01/02/2022 15:01:10 abuse/domestic violence education tcarrell Not available 01/02/2022 15:01:10 weight managemen t education [email or web address] Not available 01/02/2022 15:01:10 06/08/2022 [id number] vaginitis: care instructions [email or web address] Not available 06/08/2022 17:58:09 Reason for Referral Primary Care Provider Referr al for Gynecologic examination Referring Physician: Yunier Tam, CUSTOMER ENGAGEMENT ANALYST, Encounter Date: 01/02/2022 Results Created Date Observation Date Name Description Value Unit Range Abnormal Flag Note LastModifiedBy Organization Detail LastModifiedTime 01/04/20 22 01/03/2022 PAP REFLE X HOLD Pap reflex hold Receiv ed receiv ed [place], [address], 01/03/2022 11:54:05 01/03/20 22 01/03/2022 VAGIN ITIS PLUS STD PANEL bacterial vaginosis BV POS negati ve positive [place], [address], 01/04/2022 09:51:59 01/03/20 22 01/03/2022 VAGIN ITIS PLUS STD PANEL audrey species C. spp neg negati ve [place], [address], 01/04/2022 09:51:59 01/03/20 22 01/03/2022 VAGIN ITIS PLUS STD PANEL audrey glabrata C. gla neg negati ve [place], [address], 01/04/2022 09:51:59 01/03/20 22 01/03/2022 VAGIN ITIS PLUS STD PANEL trichomonas vaginalis CV/TV TRICH neg negati ve [place], [address], 01/04/2022 09:51:59 01/03/20 22 01/03/2022 VAGIN ITIS PLUS STD PANEL chlamydia trachomatis CT neg negati ve If both Pap and Endoc ervic al swabs are colle cted, the Prese rvCyt Solut ion liqui d Pap speci men must be colle cted befor e the endoc ervic al swab speci men. Not Available [address], [address], 01/04/2022 09:51:59 01/03/20 22 01/03/2022 VAGIN ITIS PLUS STD PANEL neisseria gonorrhoeae GC neg negati ve If both Pap and Endoc ervic al swabs are colle cted, the Prese rvCyt Solut ion liqui d Pap speci men must be colle cted befor e the endoc ervic al swab speci men. Not Available [address], [address], 01/04/2022 09:51:59 01/03/20 22 01/05/2022 THINP REP TIS PAP clinical information: normal Infor matio n not provi ded Not Available [facility] [address], [address], 01/05/2022 19:29:30 01/03/20 22 01/05/2022 THINP REP TIS PAP LMP: normal INFOR MATIO N NOT PROVI DED Not Available [facility] [address], [address], 01/05/2022 19:29:30 01/03/20 22 01/05/2022 THINP REP TIS PAP prev. Pap: normal INFOR MATIO N NOT PROVI DED Not Available [facility] [address], [address], 01/05/2022 19:29:30 01/03/20 22 01/05/2022 THINP REP TIS PAP prev. BX: normal INFOR MATIO N NOT PROVI DED Not Available [facility] [place] [address], [place], [address], 01/05/2022 19:29:30 01/03/20 22 01/05/2022 THINP REP TIS PAP source: normal Infor matio n not provi ded Not Available [address], [place], [address], 01/05/2022 19:29:30 01/03/20 22 01/05/2022 THINP REP TIS PAP statement of adequacy: normal Satis facto ry for evalu ation . Endoc ervic al/tr ansfo rmati on zone compo nent prese nt. Age and/o r menst rual statu s not provi ded Not Available [address], [place], [address], 01/05/2022 19:29:30 01/03/20 22 01/05/2022 THINP REP TIS PAP interpretati on/result: normal Negat sima for intra epith elial lesio n or malig deshaun . Not Available [address] , [place], [address], 01/05/2022 19:29:30 01/03/20 22 01/05/2022 THINP REP TIS PAP infection: normal Shift in vagin al ragini sugge stive of bacte rial vagin osis. Not Available [address] , [place], [address], 01/05/2022 19:29:30 01/03/20 22 01/05/2022 THINP REP TIS PAP comment: normal This Pap test has been evalu ated with compu ter brooklynn vania techn ology . Not Available [address] , [place], [address], 01/05/2022 19:29:30 01/03/20 22 01/05/2022 THINP REP TIS PAP cytotechnolo gist: normal LM, CT( CP) CT scree jagdish locat ion: [address] [address] [place] [address] Not Available [employer] [address] [address] [place], [address], 01/05/2022 19:29:30 01/03/20 22 01/05/2022 THINP REP [...] clini nima infor matio n. Not Available [employer] [facility]) [address] [address] [place], [address], 01/05/2022 19:29:30 01/03/20 22 01/03/2022 PAP REFLE X HOLD Pap reflex hold Receiv ed receiv ed Not Available [address], [address], 01/11/2022 11:45:32 01/03/20 22 01/03/2022 PAP REFLE X HOLD Pap reflex hold Receiv ed receiv ed Not Available [address], [address], 01/17/2022 12:29:47 01/03/20 22 01/03/2022 PAP REFLE X HOLD Pap reflex hold Receiv ed receiv ed [place], [address], 01/17/2022 13:04:26 01/03/20 22 01/03/2022 PAP REFLE X HOLD Pap reflex hold Receiv ed receiv ed [place], [address], 01/18/2022 12:05:39 01/03/20 22 01/03/2022 PAP REFLE X HOLD Pap reflex hold Receiv ed receiv ed Not Available [address], [address], 01/19/2022 10:11:28 06/08/20 22 06/13/2022 VAGIN ITIS PANEL bacterial vaginosis BV POS negati ve abnormal Not Available [address], [address], 06/13/2022 14:20:14 06/08/20 22 06/13/2022 VAGIN ITIS PANEL audrey species C. spp neg negati ve normal Not Available [address], [address], 06/13/2022 14:20:14 06/08/20 22 06/13/2022 VAGIN ITIS PANEL audrey glabrata C. gla neg negati ve normal Not Available [address], [address], 06/13/2022 14:20:14 06/08/20 22 06/13/2022 VAGIN ITIS PANEL trichomonas vaginalis CV/TV TRICH neg negati ve normal Not Available [address], [address], 06/13/2022 14:20:14 01/05/20 23 01/04/2023 pregn dawit test, urine HCG positi ve Not Available [facility] [address] [place], [address], 01/04/2023 12:34:14 01/06/20 23 01/04/2023 US, obste tric, trans vagin al No observ ation record ed. [email or web address] [facility] [address], [place], [address], 01/05/2023 00:59:18 Result Notes None recorded. Procedures Surgical History Date Name Laterality Status Provider Name and Address Organization Details Recorded Time 01/02/2022 Date of Last Pap Smear completed Radha [employer] IV 06/08/2022 17:33:33 Imaging Results Imaging Date Name Status LastModified by Organization Details LastModified Time 01/04/2023 US, obstetric, transvaginal completed [email or web address] [address], [place], [address], 01/05/2023 00:59:18 Procedure Notes None recorded. Medical [...] Updated DateTime 2 152.4 cm 27.1 kg/m2 02571.3 4 g 98 [degF] 122 mm[Hg] 70 mm[Hg] Mandy Underwood [facility] IV 2 15:00:04 Date Recorded Body height Body mass index (BMI) Body weight Systolic blood pressure Diastolic blood pressure Provider Name and Address Organization Details Last Updated DateTime 06/08/2022 152.4 cm 26.2 kg/m2 39091.38 g 120 mm[Hg] 74 mm[Hg] Radha Mike [facility] IV 2 17:34:55 Date Recorded Body height Body mass index (BMI) Body weight Systolic blood pressure Diastolic blood pressure Provider Name and Address Organization Details Last Updated DateTime 01/04/2023 152.4 cm 25.8 kg/m2 36064.19 g 122 mm[Hg] 70 mm[Hg] Diya Peguero [email or web address] 13:45:07 Social History Question Answer Notes LastModified by Organizat [email or web address] Details LastModified Time Tobacco Smoking Status Never Smoker Diya Peguero null, SCRM IV 01/04/2023 13:45:42 What Type Of Diet Are You Following? REGULAR [email or web address] Information not available 01/04/2023 What Is Your Relationship Status? Single [email or web address] Information not available 06/08/2022 Are You Sexually Active? Yes [email or web address] Information not available 01/02/2022 Sex: Unknown Functional Status Question Answer Note LastModified by Organizat ion Details LastModified Time Do you use any illicit or recreational drugs? No [email or web address] Information not available 01/04/2023 Do you or have you ever used any other forms of tobacco or nicotine? No [email or web address] Information not available 01/04/2023 What is your level of alcohol consumption? Occasional [email or web address] Information not available 01/04/2023 Mental Status None recorded. Family History Relationship Description Onset Age of this Age Resolved Age Notes LastModified by Organization Details LastModified Time Father No current problems or disability [email or web address] Not available 01/02 14:22:34 Mother No current problems or disability [email or web address] Not available 01/02 14:22:34 Medical History Condition Response Other Cancer N High Blood Pressure N Colon Cancer N Cytomegalovirus N Hyperthyroidism N MRSA N Blood Transfusion N Herpes (HSV) N Breast Cancer N Lung Cancer N Depression N Hypothyroidism N Incontinence N Panic Attacks N Neurological Disorder N Deep Vein Thrombosis N Anxiety Disorder N Autoimmune disease N Arthritis N Shingles N Tuberculosis/Positive PPD N Polycystic Ovarian Syndrome N Cervical Cancer N Hematuria N Chlamydia N Varicosities N Stroke N Seasonal allergies N Crohn's Disease N Alzheimer's/Dementia N COPD/Emphysema N Endometriosis N HPV/Genital Warts N IBS (Irritable Bowel Syndrome) N History of Abnormal Pap N High Cholesterol N Liver Disease N Fibromyalgia N Kidney Infection N Ulcer N Kidney Disease N HIV N Gallbladder disease N Sickle Cell Disease/Trait N Von Willebrand disease N ADD/ADHD N Eating Disorder N Anemia N Diabetes Mellitus (non-insulin dependent ) N Ovarian Problems N Multiple Sclerosis N Gonorrhea N Frequent Urinary Tract infections N Osteopenia N Headaches/migraines N GERD (reflux) N Ovarian Cancer N Diabetes (insulin dependent) N Seizures/Epilepsy N Fibroids N Heart Attack N Asthma N Lupus N Endometrial Cancer N Rubella [...] SNOMED-CT Code Diagnosis ICD10 Code Diagnosis Note [id number] YUNIER CALHOUNBashir TAM CNM [facility] [address] [place] [address] 01/02/2022 14:02:47 01/02/2022 22:19:22 Gynecologic examination 77815190 Z01.419 21 y.o. here for first annual exam. - Pap today with STI screen - Contracept smia counseling : Discussed options including OCPs, NuvaRing, Nexplanon, hormonal and copper IUDs. Discussed risks, benefits, and side effects of each option, including risk of VTE with hormonal contracept ion and uterine perforatio n with IUD. - Depression screen NEG - BMI counseling , diet and exercise reviewed - RTO for IUD placement or annual Screening for malignant neoplasm of cervix 715701706 Z12.4 Depression screening 171 960615 Z13.31 Hirsutism 110274846 L68. 0 Only above upper lip; denies excess hair in other areas. Does notice that hair on scalp and pubic hair is coarse and thick as well. Discussed this as a variation of normal. Rec wax over shave to minimize visual appearance and thickness. Screening for disorder 749721883 Z11.3 N89.9 [id number] Alejandrina Schulte CNM [facility] [address] [place] [address] 06/08/2022 17:11:08 06/09/2022 10:26:45 Vaginal discharge 746921705 N89.8 N76.0 [id number] ELIANA VERMA MD [facility] h [address] [place] [address] 01/04/2023 12:00:45 01/05/2023 14:16:11 12572330 Z33.1 Gestation period, 8 weeks 82340389 Z3A.08 Hemorrhagi c cyst of ovary 871842437 N83.209 Health Concerns Section Related Observation LastModified by Organization Detai ls LastModified Time None Recorded Concern Status LastModified by Organization Details LastModified Time None Recorded Advance Directives Directive None Recorded Payers Insurance Date Sequence Insurance Name Policy Number Policy Smalls Covered Member ID Smalls Member ID Guarantor Name 01/02/2022 1 [facility] (HMO) Mami Blackburn [id number] Olivia Blackburn 06/20/2023 2 [facility] (MEDICAID REPLACEMENT - HMO) [id number] Olivia Blackburn [id number] Olivia Blackburn 06/20/2023 1 [facility] (PPO) [id number] Olivia Blackburn [id number] Olivia Blackburn Notes Date Note Type Note [...] typing uses condoms inconsistently; monogamous relationship YUNIER TAM CNM [address] [facility], [place], [address], [facility] [email or web address] 01/02/2022 15:45:09 06/08/2022 text/html States that she is having abnormal bleedingThink that she may have BV- D/C, smell, itchPatient states that she has the feeling that she has urine leakage after using the bathroom. Denies urgency, dysuria, or frequency Alejandrina Schulte CNM [address] [facility], [place], [address], [facility] [email or web address] IV 06/08/2022 17:58:35 01/04/2023 text/html Confirmation VisitReported bypatient.obstetric s and gynecologyLMP: (11/09/2022); no bleeding between periods; 1; para 0; EDC (LMP): (08/16/2023); [place] (LMP): (05/01) Olivia 22 y/o patient here with postive test, U/S done today Olivia 22 y/o patient here with postive test pain since last sundayNausea+ ELIANA MCCULLOUGH MD [address] [facility], [place], [address], SCRM IV 01/04/2023 13:57:36 OBGyn Episode No OBEpisode recorded. "
--- OUTSIDE RECORDS SUMMARY | 2025-02-13 09:16 | XMS_ITS | Data Portability ---
Author Organization [facility], Main Office Address [address] [place] [address] Assessment No assessment recorded. Plan of Treatment Reminders Order Date Submit Date Provider Last Modified By Organization Details Last Modified Time Details Appointments None recorded. Lab urinalysis complete, reflex culture 2022 023 [email or web address] [facility] ([facility] [address] [place], [address], 3 08:42:23 Referral None recorded. Procedures None recorded. Surgeries None recorded. Imaging None recorded. Medication Orders dicyclomine 10 mg capsule 2022 023 [id number], [address], [place], [place], [id number], 3 08:36:42 famotidine 20 mg tablet 2022 023 [id number], [address], [place], [place], [id number], 3 08:36:41 Patient TargetsNo targets recorded. Patient InstructionsNo instructions recorded. Reason for Referral None Reported. Results Created Date Observation Date Name Description Value Unit Range Abnormal Flag Note LastModifiedBy Organization Detail LastModifiedTime 01/18/2001/17/2023 urina lysis , dipst ick Leukocytes (reference range: negative anette/ l) Trace Not Available [facility] [address], [place], [address], 01/17/2023 08:18:48 01/18/2001/17/2023 urina lysis , dipst ick Nitrite (reference rage: negative mg/dl) negati ve Not Available [address], [place], [address], 01/17/2023 08:18:48 01/18/2001/17/2023 urina lysis , dipst ick Urobilinogen (reference range: 0.2-1 mg/dl) 0.2 Not Available [address], [place], [address], 01/17/2023 08:18:48 01/18/2001/17/2023 urina lysis , dipst ick Protein (reference range: negative mg/dl) Small Not Available [address], [place], [address], 01/17/2023 08:18:48 01/18/2001/17/2023 urina lysis , dipst ick pH (reference range: 5-7) 6.5 Not Available [address], [place], [address], 01/17/2023 08:18:48 01/18/2001/17/2023 urina lysis , dipst ick Blood (reference range: negative Piotr/ l) Negati ve Not Available [address], [place], [address], 01/17/2023 08:18:48 01/18/2001/17/2023 urina lysis , dipst ick Specific [place] (reference range: 1.005-1.030) 1.025 Not Available [address], [place], [address], 01/17/2023 08:18:48 04/19/20 23 01/17/2023 urina lysis , dipst ick Ketone (reference range: negative mg/dl) Trace Not Available [address], [place], [address], 01/17/2023 08:18:48 01/18/20 23 01/17/2023 urina lysis , dipst ick Bilirubin (reference range: negative mg/dl) Small Not Available [address], [place], [address], 01/17/2023 08:18:48 01/18/20 23 01/17/2023 urina lysis , dipst ick Glucose (reference range: negative mg/dl) Negati ve Not Available [address], [place], [address], 01/17/2023 08:18:48 01/18/20 23 01/17/2023 urina lysis , dipst ick Appearance Clear Not Available [address], [place], [address], 01/17/2023 08:18:48 01/18/20 23 01/17/2023 urina lysis , dipst ick Color Yellow Not Available [address], [place], [address], 01/17/2023 08:18:48 12/29/19 23 12/27/2022 US, abdom en + pelvi s No observ ation record ed. [email or web address] [place] [address], [place], [address], 01/09/2023 15:32:02 12/30/19 23 12/29/2022 ultra sound tay nce for, and monit oring of, paren chyma l tissu e ablat ion (PROC ) No observ ation record ed. [address], [place], [address], 01/09/2023 15:31:43 Result Notes None recorded. Problems Name Problem SNOMED Code Status Onset Date Resolution Date Notes Provider Name and Address Organization Details Recorded Time Elevated blood-pressure reading without diagnosis of hypertension 742051115 Active 2022 LUDIVINA Lam [address], [place], [address], [employer] 3 14:09:31 Dysuria 28800296 Active 2022 Geni lowery, [facility] null, [facility] 3 08:18:54 Gastroesophage al reflux disease without esophagitis 737081710 Active 2022 LUDIVINA Lam [address], [place], [address], [facility] 3 08:19:23 Abdominal pain 80778880 Active 2022 LUDIVINA Lam [address], [place], [address], [facility] 3 08:35:01 Increased frequency of urination 039978676 Active 2022 LUDIVINA Lam [address], [place], [address], [facility] 3 08:38:27 Problem Notes None recorded. Procedures Surgical History None recorded. Imaging Results Imaging Date Name Status LastModified by Organiz ation Details LastModified Time 12/27/2022 US, abdomen + pelvis completed [email or web address] [address], [place], [address], 01/09/2023 15:32:02 12/29/2022 ultrasound guidance for, and monitoring of, parenchymal tissue ablation (PROC) completed [address], [place], [address], 01/09/2023 15:31:43 Procedure Notes None recorded. Medical [...] % 98 % 81 /min 97.6 [degF] 14256.4 9 g 130 mm[Hg] 100 mm[Hg] Not Available [facility] 3 10:39:34 Date Recorded Body mass index (BMI) Body height Oxygen saturation Oxygen saturation in Arterial blood by Pulse oximetry Heart rate Body temperature Body weight Systolic blood pressure Diastolic blood pressure Provider Name and Address Organization Details Last Updated DateTime 3 27.2 kg/m2 154.94 cm 99 % 99 % 73 /min 98.5 [degF] 07193.3 g 130 mm[Hg] 90 mm[Hg] Not Available [facility] 3 10:39:34 Date Recorded Body height Provider Name an d Address Organization Details Last Updated DateTime 12/01/2022 154.94 cm Bettina Yip CMA [facility] 12/01/2022 14:22:05 Date Recorded Body height Body mass index (BMI) Body weight Body temperature Oxygen saturation Oxygen saturation in Arterial blood by Pulse oximetry Heart rate Systolic blood pressure Diastolic blood pressure Provider Name and Address Organization Details Last Updated DateTime 3 154.94 cm 26.8 kg/m2 30726.1 2 g 97.8 [degF] 98 % 98 % 76 /min 122 mm[Hg] 70 mm[Hg] Bettina Yip CMA [facility] 3 08:11:43 Social History Question Answer Notes LastModified by tribrat ion Details LastModified Time Tobacco Smoking Status Never Smoker Not Available [facility] 11/29/2022 10:39:23 What Is Your Level Of Caffeine Consumption? None [id number] Information not available 11/29/2022 In The 14 Days Before Symptom Onset, Have You Had Close Contact With A Laboratory-confir med COVID-19 While That Case Was Ill? No [id number] Information not available 11/29/2022 In The 14 Days Before Symptom Onset, Have You Had Close Contact With A Person Who Is Under Investigation For COVID-19 While That Person Was Ill? No [id number] Information not available 11/29/2022 What Type Of Diet Are You Following? REGULAR [id number].[id number] Information not available 11/29/2022 Are You Following A Low Salt Diet? Yes [id number].[id number] Information not available 11/29/2022 Have You Ever Been Counseled For Unhealthy Alcohol Use? No MIGRATION.301273 2855 Information not available 11/29/2022 Has Tobacco Cessation Counseling Been Provided? No MIGRATION.[id number] Information not available 11/29/2022 Have You Recently Traveled Abroad? No MIGRATION.[id number] 6080 Information not available 11/29/2022 Have You Used IV Drugs? No MIGRATION.[id number] 7224 Information not available 11/29/2022 Do You Have Any Dietary Restrictions? Yes Can't Have Banana MIGRATION.[id number] 7253 Information not available 11/29/2022 Sex: Unknown Functional Status Question Answer Note LastModified by Organizat ion Details LastModified Time Do you use any illicit or recreational drugs? Yes weed [id number].[id number] [id number] Information not available 11/29/2022 Do you or have you ever used any other forms of tobacco or nicotine? No [id number].[id number] 035 Information not available 11/29/2022 What is your level of alcohol consumption? Occasional MIGRATION.[id number] 035 Information not available 11/29/2022 What is your exercise level? Occasional MIGRATION.[id number] 035 Information not available 11/29/2022 Mental Status None recorded. Family History Relationship Description Onset Age of this Age Resolved Age Notes LastModified by Organization Details LastModified Time Mother Hypertensive disorder [id number] Not available 11/29/2022 10:39:31 Medical History No [...] SNOMED-CT Code Diagnosis ICD10 Code Diagnosis Note [id number] LUDIVINA Lam [facility] [place] [address] [place] [address] 11/20/2022 00:00:00 11/20/2022 08:51:48 [id number] [facility]UDIVINA [facility] [place] [facility] [place] [address] [facility] [address] 11/27/2022 00:00:00 11/27/2022 14:47:19 [id number] LUDIVINA Lam [facility] Primary [facility] [place] [address] [facility] [address] [place] [address] 12/01/2022 14:04:11 12/01/2022 14:30:49 [id number] LUDIVINA Lam [facility] Primary Care [place] [address] [facility] [facility] [address] [place] [address] 01/17/2023 08:06:43 01/17/2023 08:43:52 Gastroesophageal reflux disease without esophagitis 962562807 K21.9 Continue tums as needed and add famotidine .Counseled to avoid triggers- spicy/acid ic foods, red sauces, caffeine, alcohol, carbonated drinks. Advised elevate head of bed, not eating large meals right before bedtime. Abdominal pain 01127456 R10.9 Chronic. Lower abdominal, relieved with bowel movement.W ill do dicyclomin e PRN for cramping. Plan to follow with GI after . Increased frequency of urination 567209983 R35.0 Urine dip showed trace leuks. Symptoms [...] Smalls Member ID Guarantor Name 12/01/2022 1 [facility] (O) [id number] Olivia Blackburn [id number] Olivia Blackburn 12/01/2022 2 [facility] (MEDICAID REPLACEMENT - HMO) [id number] Olivia Blackburn [id number] Olivia Blackburn 01/17/2023 1 [facility] [id number] Olivia Blackburn [id number] Olivia Blackburn 01/17/2023 2 [facility] (MEDICAID REPLACEMENT - HMO) [id number] Olivia Blackburn [id number] Olivia Blackburn Notes Date Note Type Note Provider Name and Address Organization Details Recorded Time 01/17/2023 text/html Pt. is currently 9 weeks , she went to [facility] for her initial visit but will be switching to [facility] [address] [facility] [place]. She is concerned she has a UTI. [...] weeks into her . LUDIVINA Lam [address] [facility], [facility] [address], [place], [address], [facility] 01/17/2023 10:26:56 OBGyn Episode No OBEpisode recorded.
[2025-02-13 10:13] LABS: Alanine Aminotransferase 28 U/L (6-35); Albumin Level 4.8 g/dL (3.5-5.1); Alkaline Phosphatase 148 U/L (38-126); Anion Gap 11 mmol/L (4-12); Aspartate Amino Transferase 26 U/L (14-36); Bilirubin,Total 0.6 mg/dL (0.2-1.3); Blood Urea Nitrogen 11 mg/dL (7-17); Calcium 9.7 mg/dL (8.4-10.2); Carbon Dioxide 24 mmol/L (22-30); Chloride 107 mmol/L (98-107); Cholesterol 171 mg/dL (0-200); Estimated Glomerular Filt Rate > 60; Glucose 87 mg/dL (65-110); HDL Direct 37 mg/dL; Potassium 4.2 mmol/L (3.4-5.0); Sodium 142 mmol/L (137-145); Triglycerides 174 mg/dL (<150)
[2025-02-13 10:23] LABS: LDL Cholesterol Direct 82 mg/dL
[2025-02-13 10:43] LABS: Total Triiodothyronine (T3) 1.25 NG/ML (0.97-1.69)
[2025-02-13 11:47] LABS: Free T4 Free Thyroxine 1.24 ng/dL (0.78-2.19)
[2025-02-13 14:04] LABS: Hemoglobin A1C 4.7 % (<5.7)
[2025-02-14 06:55] LABS: DHEA-Sulfate 244 mcg/dL (14-349)
[2025-02-16 15:43] LABS: Thyroid Peroxidase Antibodies 33 IU/mL (<9)
[2025-02-16 21:23] LABS: Renin 5.21 ng/mL/h (0.25-5.82)
[2025-02-18 12:08] LABS: Testosterone Free 3.2 pg/mL (0.2-5.0); Testosterone Total 15 ng/dL (2-45)
[2025-02-20 19:08] LABS: Thyroid Stimulating Immunoglob <89 % baseline (<140)
[2025-02-21 23:29] LABS: Thyrotropin Receptor Antibody <1.00 IU/L (< OR = 2.00)
== END 2025-02-13 09:03 | disposition home or self-care (01) ==
LOC: ANHLAB 09:04
PROVIDERS: PCP Nurse Practitioner Family; Visit Provider Internal Medicine
DX: O13.9 Gestational [pregnancy-induced] hypertension without significant proteinuria, unspecified trimester (principal); O16.9 Unspecified maternal hypertension, unspecified trimester; O99.280 Endocrine, nutritional and metabolic diseases complicating pregnancy, unspecified trimester; E03.9 Hypothyroidism, unspecified; R93.89 Abnormal findings on diagnostic imaging of other specified body structures; Z68.31 Body mass index [BMI] 31.0-31.9, adult; Z3A.00 Weeks of gestation of pregnancy not specified
CPT/HCPCS: 36415; 80053; 80061; 82088; 82627; 83036; 83498; 83519; 84244; 84402; 84403; 84439; 84443; 84445; 84480; 86376; 86800

== ENCOUNTER 2025-04-27 08:13 | Outpatient (CLI) | payer OTHER, SELFPAY ==
--- NOTE | ~2025-04-27 | US_ITS ---
US breast RT limited INDICATION: Breast pain TECHNIQUE: Dedicated Limited right breast ultrasound COMPARISON: No prior studies for comparison. FINDINGS: The right breast is/are composed of normal heterogeneous echotexture without focal solid or cystic mass. IMPRESSION: 1: Normal limited right breast ultrasound. BI-RADS CATEGORY 1 - NEGATIVE Reviewed, dictated and finalized at location B.
== END 2025-04-27 08:14 | disposition home or self-care (01) ==
LOC: MICIMG 08:14
PROVIDERS: PCP Nurse Practitioner Family; Visit Provider Nurse Practitioner Family
DX: N64.4 Mastodynia (principal)
CPT/HCPCS: 76642